=== PATIENT | female | born 1960 | race Caucasian/White ===

== ENCOUNTER → 2016-02-28 | Outpatient (CLI) | payer OTHER ==
[~2016-02-28] MED LIST: ALBU1AER9 INH; ASPEC325 PO; ATV1 PO; CRS20 PO; ISOS30TA3 PO; MAGIC1; METO25TA56 PO; MORP60TA6 PO; NTRGSL/4 UT; OXYC-106 PO; PRVSRUNK PO; SERT-234 PO
--- NOTE | 2016-02-29 14:16 | MAMMOGRAPHY REPORT ---
BILATERAL DIGITAL SCREENING MAMMOGRAM TOMOSYNTHESIS WITH CAD: 02/28/2016 CLINICAL HISTORY: Routine screening. Patient has no complaints. TECHNIQUE: Breast tomosynthesis in addition to standard 2D mammography was performed. Current study was also evaluated with a Computer Aided Detection (CAD) system. COMPARISON: Comparison is made to exams dated: 06/22/2014 mammogram, 09/01/2013 mammogram, and 014 mammogram - [facility]. BREAST COMPOSITION: The tissue of both breasts is heterogeneously dense, which may obscure small ma sses. FINDINGS: There are clusters of microcalcifications in each upper outer quadrant that appears simila r to prior exams and most likely represent benign fibrocystic change. No new suspicious mass, archi tectural distortion or cluster of microcalcifications is seen. IMPRESSION: ACR BI-RADS CATEGORY 1: NEGATIVE There is no mammographic evidence of malignancy. A 1 year screening mammogram is recommended. The p atient will receive written notification of the results. Approximately 10% of breast cancers are not detected with mammography. A negative mammographic repor t should not delay biopsy if a clinically suggestive mass is present. Preeti Willard M.D. ay/:02/28/2016 16:53:10 Certified Industrial Hygienist: Jessie MARKS(Elise)(Diana)([place]), [facility] letter sent: Normal 1/2 BI-RADS Code: ACR BI-RADS Category 1: Negative
== END | disposition home or self-care (01) ==
LOC: C.MAMM 16:24
PROVIDERS: ATTEND Family Medicine
DX: Z12.31 Encounter for screening mammogram for malignant neoplasm of breast (principal)

== ENCOUNTER 2017-04-11 19:53 | Emergency (ER) | payer OTHER ==
[~2017-04-11] VITALS: Ht 160 cm; Wt 76.4 kg
[2017-04-11 20:04] VITALS: TEMP 36.8; Ht 160 cm; Wt 76.4 kg
[2017-04-11] MEDS ORDERED: SODIUM CHLORIDE 0.9% 1000ML 1,000 ML IV STA (20:26)
[2017-04-11] MEDS ORDERED: FENTANYL CITRATE INJ 50 MCG/1 ML 2 ML VIAL IV STA (20:26)
[2017-04-11] MEDS ORDERED: DEXAMETHASONE **PF** INJ 10 MG/ML VIAL IV ONE (20:30)
[2017-04-11] MEDS ORDERED: OPTIRAY 320 IV PRN (20:45)
[2017-04-11 21:17] VITALS: O2SAT 93
[2017-04-11 21:17] LABS: BASO % 0.6 %; BASO ABS # 0.06 K/uL (0-0.2); EOS % 2.4 %; EOS ABS # 0.25 K/uL (0-0.5); HEMATOCRIT 41.8 % (37-47); HEMOGLOBIN 14.3 g/dL (12.0-16.0); IG# 0.02 K/uL (0.00-0.02); LYMPH % 23.3 %; LYMPH ABS # 2.46 K/uL (1.2-3.4); MEAN CELL VOLUME 95.7 fL (80-100); MEAN CORPUSCULAR HEMOGLOBIN 32.7 pg (25-34); MEAN CORPUSCULAR HGB CONC 34.2 g/dl (32-36); MEAN PLATELET VOLUME 9.1 fL (7.4-10.4); MONO % 7.2 %; MONO ABS # 0.76 K/uL (0.11-0.59); NEUT % 66.3 %; NEUT ABS # 7.02 K/uL (1.4-6.5); PLATELET COUNT 274 K/uL (130-400); RED CELL DISTRIBUTION WIDTH CV 14.3 % (11.5-14.5); RED CELL DISTRIBUTION WIDTH SD 50.2 fL (36.4-46.3); WHITE BLOOD COUNT 10.57 K/uL (4.8-10.8)
[2017-04-11 21:44] LABS: CALCIUM 9.1 mg/dl (8.5-10.1); CREATININE 0.82 mg/dl (0.60-1.20); POTASSIUM 3.4 mmol/L (3.5-5.1)
[2017-04-11] MEDS ORDERED: APRE1TAB3 PO (21:53)
[2017-04-11] MEDS ORDERED: TRAZ100T29 PO (21:53)
[2017-04-11] MEDS ORDERED: FLUT1INH INH (21:53)
[2017-04-11] MEDS ORDERED: CYAN5000 SL (21:53)
[2017-04-11] MEDS ORDERED: MORP1CAP PO (21:53)
[2017-04-11] MEDS ORDERED: LANS30CA12 PO (21:53)
[2017-04-11] MEDS ORDERED: CLBPO15 TOP (21:53)
[2017-04-11] MEDS ORDERED: NTRGSL/4 UT (21:53)
[2017-04-11] MEDS ORDERED: ROSU20TA PO (21:53)
[2017-04-11] MEDS ORDERED: CHOL400T (21:53)
[2017-04-11] MEDS ORDERED: METF-383 PO (21:53)
[2017-04-11] MEDS ORDERED: ASPI81TA28 PO (21:53)
[2017-04-11] MEDS ORDERED: TACR0.1O TOP (21:53)
[2017-04-11] MEDS ORDERED: OXYC-106 PO (21:53)
[2017-04-11] MEDS ORDERED: FLUO20CA35 PO (21:53)
[2017-04-11] MEDS ORDERED: BUSP-8 PO (21:53)
[2017-04-11] MEDS ORDERED: HYDR-3124 PO (21:53)
--- NOTE | 2017-04-11 22:02 | DIAGNOSTIC IMAGING REPORT ---
CHEST 2 VIEWS ROUTINE HISTORY: 56 years-old Female eval throat pain acute throat pain COMPARISON: None available TECHNIQUE: PA and lateral views of the chest FINDINGS: The cardiomediastinal and hilar silhouettes are within normal limits. There is no pneumothorax, pleural effusion, focal airspace consolidation or overt pulmonary edema. The bones of the chest appear grossly intact. Multiple subcentimeter nodular opacities are seen bilaterally suggesting small calcified granulomas. Stimulator leads are noted overlying the mid thoracic spine with partially imaged battery pack overlying the posterior soft tissues of the back. IMPRESSION: No acute process of the chest. The above report was generated using voice recognition software. It may contain grammatical, syntax or spelling errors. Electronically signed by: Lyle Nix M.D. 04/11/2017 10:01 PM Dictated Date/Time: 04/11/2017 9:57 PM
--- NOTE | 2017-04-11 22:30 | DIAGNOSTIC IMAGING REPORT ---
SOFT TISSUE NECK WITH HISTORY: 56 years-old Female eval abscess, mass acute dysphasia with neck soft tissue swelling. Clinical concern for possible abscess. COMPARISON: Chest radiographs of same day TECHNIQUE: Multiple axial CT images of the soft tissues of the neck were obtained following the intravenous administration of 93 mL Optiray 320 IV contrast. A dose lowering technique was used consistent with the principals of JAGRUTI. FINDINGS: Heterogeneous ill-defined soft tissue prominence within the distribution of the right palatine tonsil measures 1.9 x 1.8 x 2.4 cm nicely seen on image 126 series 3. This causes mild narrowing of the oral pharynx. The left palatine tonsil, adenoid and lingual tonsils appear unremarkable. Mild secretions are noted within the vallecula. Piriform sinuses are unremarkable. The bilateral vocal cords, epiglottis and aryepiglottic folds are unremarkable. No drainable fluid collections identified. No pathologic adenopathy about the neck. Bilateral parotid, submandibular and sublingual glands appear unremarkable. Mildly prominent left subpectoral lymph nodes are seen measuring up to 8 mm. Additionally, periesophageal lymph nodes are noted measuring up to 6 mm below the thoracic inlet. 3 mm low attenuating cystic lesion of the anterior right thyroid lobe. Mild emphysema of the imaged lung apices. 3 mm nodule of the left lung apex. Calcified granulomata of the lung apices. The bilateral orbits appear unremarkable. The imaged bony structures appear unremarkable. Mild mucosal thickening of the right maxillary and inferior frontal sinuses. Multilevel degenerative changes of the cervical spine. IMPRESSION: 1. Heterogeneous ill-defined soft tissue prominence within the region of the right palatine tonsil measures up to 2.4 cm causing mild mass effect upon the oral pharynx. Differential considerations would include infectious tonsillitis or tonsillar neoplasm. Correlation with direct visualization is recommended and ENT consultation should be considered. No drainable fluid collections identified to suggest abscess. 2. Emphysema. 3. Mild paranasal sinus disease. The above report was generated using voice recognition software. It may contain grammatical, syntax or spelling errors. Electronically signed by: Lyle Nix M.D. 04/11/2017 10:28 PM Dictated Date/Time: 04/11/2017 10:17 PM
--- NOTE | 2017-04-11 23:08 | EMERGENCY ROOM VISIT NOTE ---
ED Visit Note First contact with patient: 20:11 CHIEF COMPLAINT: Throat pain and swelling HISTORY OF PRESENTING ILLNESS: This is a 56-year-old female who presents the emergency department with complaint of sore throat and throat swelling for the past 2 months. She states initially her symptoms started the beginning of February, she had some associated fever/chills. She saw her PCP and was diagnosed with strep throat, placed on penicillin VK for 10 days. She states that her symptoms did not improve so she saw her PCP again, they performed a repeat test for strep which was negative, but placed her on additional antibiotics of cefuroxime for 10 days. They also felt the patient may have oral thrush, and place her on nystatin suspension. She has not seen her PCP since completing the second course of antibiotics. The patient states that her symptoms have persisted and she feels that the swelling in her throat has not gotten any better, she states she is worried that her throat is going to close off. She has been able to swallow solids and liquids, but states it is very painful. She denies any recent fevers or chills, headaches, chest pain or shortness of breath, dizziness or syncope, swelling of the face or neck, dental infections, nausea or vomiting, urinary symptoms, or rash. She takes Percocet and morphine regularly for chronic back pain, and states these have not been helping her throat pain. Patient's daughter does note that she had a lymph node removed from her armpit previously that tested positive for lymphoma, she states she is not currently on any treatment for this. REVIEW OF SYSTEMS: A complete 10 point review of systems was reviewed with the patient with pertinent positives and negatives as per history of present illness. All else were negative. PAST MEDICAL HISTORY: Anxiety/depression, chronic back pain on narcotics, hyperlipidemia, prediabetes. SOCIAL HISTORY: Lives at home with family. She is a current every day heavy smoker, denies alcohol and recreational drug use. ALLERGIES: No known allergies. PHYSICAL EXAM: CONSTITUTIONAL: Pleasant and cooperative. No acute distress. Mildly dehydrated , but otherwise well appearing and well nourished. HEENT: Normocephalic, atraumatic. Pupils equal, round and reactive to light, EOMI. TMs normal. Pharynx erythematous and raw appearing with 4+ enlarged tonsils, no exudate, no uvular deviation, no trismus. Tacky mucous membranes. Voice is not muffled. NECK: Supple, full active range of motion without discomfort. Bilateral cervical adenopathy, nontender to palpation. RESPIRATORY: Clear to auscultation bilaterally with no wheezing, crackles, rhonchi or stridor. Equal expansion bilaterally. CARDIOVASCULAR: Regular rate and rhythm with no murmurs, rubs or gallops. Normal peripheral perfusion. No edema. GASTROINTESTINAL: Soft, nontender, nondistended. No palpable masses or HSM. Bowel sounds present in all quadrants. MUSCULOSKELETAL: Full range of motion of all joints without discomfort. INTEGUMENTARY: No rash or other significant dermatologic conditions noted. NEUROLOGIC: Alert and oriented X 4 with normal affect. Cranial nerves II-XII grossly intact. No focal neurologic deficits noted. Normal strength and sensation all 4 extremities. Normal speech. Normal gait observed. ED COURSE AND MEDICAL DECISION MAKING: CC: Patient presenting with complaint of throat pain DIFFERENTIAL DIAGNOSIS: Includes, but not limited to viral pharyngitis, strep pharyngitis, mononucleosis, peritonsillar or retropharyngeal abscess, tonsillitis, malignant mass, lymphadenopathy, among others. INTERPRETATION OF LABS: No leukocytosis, no anemia, no significant electrolyte abnormalities, normal renal function. Monospot negative. Rapid strep negative. IMAGING: CHEST 2 VIEWS ROUTINE HISTORY: 56 years-old Female eval throat pain acute throat pain COMPARISON: None available TECHNIQUE: PA and lateral views of the chest FINDINGS: The cardiomediastinal and hilar silhouettes are within normal limits. There is no pneumothorax, pleural effusion, focal airspace consolidation or overt pulmonary edema. The bones of the chest appear grossly intact. Multiple subcentimeter nodular opacities are seen bilaterally suggesting small calcified granulomas. Stimulator leads are noted overlying the mid thoracic spine with partially imaged battery pack overlying the posterior soft tissues of the back. IMPRESSION: No acute process of the chest. ------ SOFT TISSUE NECK WITH HISTORY: 56 years-old Female eval abscess, mass acute dysphasia with neck soft tissue swelling. Clinical concern for possible abscess. COMPARISON: Chest radiographs of same day TECHNIQUE: Multiple axial CT images of the soft tissues of the neck were obtained following the intravenous administration of 93 mL Optiray 320 IV contrast. A dose lowering technique was used consistent with the principals of ALARA. FINDINGS: Heterogeneous ill-defined soft tissue prominence within the distribution of the right palatine tonsil measures 1.9 x 1.8 x 2.4 cm nicely seen on image 126 series 3. This causes mild narrowing of the oral pharynx. The left palatine tonsil, adenoid and lingual tonsils appear unremarkable. Mild secretions are noted within the vallecula. Piriform sinuses are unremarkable. The bilateral vocal cords, epiglottis and aryepiglottic folds are unremarkable. No drainable fluid collections identified. No pathologic adenopathy about the neck. Bilateral parotid, submandibular and sublingual glands appear unremarkable. Mildly prominent left subpectoral lymph nodes are seen measuring up to 8 mm. Additionally, periesophageal lymph nodes are noted measuring up to 6 mm below the thoracic inlet. 3 mm low attenuating cystic lesion of the anterior right thyroid lobe. Mild emphysema of the imaged lung apices. 3 mm nodule of the left lung apex. Calcified granulomata of the lung apices. The bilateral orbits appear unremarkable. The imaged bony structures appear unremarkable. Mild mucosal thickening of the right maxillary and inferior frontal sinuses. Multilevel degenerative changes of the cervical spine. IMPRESSION: 1. Heterogeneous ill-defined soft tissue prominence within the region of the right palatine tonsil measures up to 2.4 cm causing mild mass effect upon the oral pharynx. Differential considerations would include infectious tonsillitis or tonsillar neoplasm. Correlation with direct visualization is recommended and ENT consultation should be considered. No drainable fluid collections identified to suggest abscess. 2. Emphysema. 3. Mild paranasal sinus disease. EKG: Shows normal sinus rhythm with a rate of 97 bpm, no ectopy, no acute ischemic changes, no significant changes compared with previous EKG from 2010 by my interpretation. MEDICATION RECONCILIATION: I attest that I have personally reviewed the patient 's current medication list. INITIAL VITAL SIGNS REVIEW: I reviewed the patient's initial vital signs and interpret them as follows: T: Afebrile; BP: Normotensive; HR: Tachycardic; RR : Within normal limits; Pulse Ox: Within normal limits on room air. Blood pressure screening: The patient was found to have normal blood pressure on screening and does not require follow-up for repeat blood pressure check. SUMMARY: Patient was evaluated at bedside, history and physical exam performed. Patient is alert and oriented, no acute distress, resting calmly in the stretcher. Patient is able to tolerate her oral secretions. She is able to speak without difficulty, no muffled voice. No trismus or uvular deviation. The pharynx is notably erythematous with enlarged tonsils. Orders were placed at bedside for labs, IV fluids for hydration, IV Decadron for tonsillar edema, CT soft tissue neck with IV contrast to evaluate for deep space infection or mass. Patient discussed with Dr. Jerome, who agrees with my assessment and plan. Labs and imaging reviewed as above, findings appear consistent with tonsillitis , though malignancy cannot be fully ruled out. Radiologist is recommending ENT follow-up. Patient has been stable, no evidence of a systemic infection, and her symptoms have been relatively unchanged for the past 2 months with no acute worsening. Able to swallow, no respiratory issues, I am not concerned for acute airway compromise at this time. The patient was given Rx for clindamycin and prednisone taper, first dose of Clinda given in the ED. Patient reassessed multiple times throughout ED stay, she remains well-appearing , patent airway and tolerating oral fluids. Her pain is improving. Patient was updated on all results and plan for discharge, she was encouraged to follow closely with her primary care provider. sales planning manager was involved to help facilitate establishing a close follow-up with ENT, the patient will be called to set up an appointment. Patient was also given strict return precautions should her symptoms worsen, she verbalized understanding. Patient was discharged home in stable condition and ambulatory. Current/Historical Medications Scheduled Apremilast (Otezla), 30 MG PO BID Aspirin (Aspirin Ec), 81 MG PO DAILY Buspirone Hcl (Buspirone Hcl), 10 MG PO BID Cholecalciferol (Vitamin D), 400 UNITS DAILYBB Clindamycin Hcl (Cleocin), 300 MG PO QID Clobetasol Propionate (Clobetasol Propionate), 1 APPLN TOP BID ud Cyanocobalamin (Vitamin B-12), 5,000 MCG SL DAILY Fluoxetine (Prozac), 20 MG PO DAILY Fluticasone Furoate-Vilanterol (Breo Ellipta), 1 PUFF INH DAILY Lansoprazole (Prevacid), 30 MG PO DAILY Metformin Hcl (Glucophage), 850 MG PO DAILY Morphine Sulfate (Flory), 60 MG PO BID Nitroglycerin (Nitrostat), 0.4 MG UT PRN Prednisone (Prednisone), 0 PO DAILY Rosuvastatin Calcium (Crestor), 20 MG PO HS Tacrolimus (Topical) (Protopic), 1 APPLN TOP UD Trazodone Hcl (Trazodone), 200 MG PO DAILY Scheduled PRN Hydroxyzine Hcl (Atarax), 25 MG PO QID PRN for Itching Oxycodone/Acetaminophen 10MG/325MG (Percocet 10MG/325MG), 1 TAB PO Q4 PRN for Pain Allergies Coded Allergies: No Known Allergies (Verified , NONE, 06/03/10) Vital Signs Date Time Temp Pulse Resp B/P (MAP) Pulse Ox O2 Delivery O2 Flow Rate FiO2 04/12/17 00:15 76 20 146/81 99 04/11/17 23:34 82 20 137/87 94 Room Air 04/11/17 22:04 96 18 137/85 92 Room Air 04/11/17 21:17 93 Room Air 04/11/17 20:45 93 Room Air 04/11/17 20:04 36.8 127 18 115/75 94 Room Air Laboratory Results 04/11/17 21:00 Red Blood Count 4.37, Mean Corpuscular Volume 95.7, Mean Corpuscular Hemoglobin 32.7, Mean Corpuscular Hemoglobin Concent 34.2, Mean Platelet Volume 9.1, Neutrophils (%) (Auto) 66.3, Lymphocytes (%) (Auto) 23.3, Monocytes (%) (Auto) 7.2, Eosinophils (%) (Auto) 2.4, Basophils (%) (Auto) 0.6, Neutrophils # (Auto) 7.02, Lymphocytes # (Auto) 2.46, Monocytes # (Auto) 0.76, Eosinophils # (Auto) 0.25, Basophils # (Auto) 0.06 04/11/17 21:00 Test 04/11/17 21:00 White Blood Count 10.57 K/uL (4.8-10.8) Red Blood Count 4.37 M/uL (4.2-5.4) Hemoglobin 14.3 g/dL (12.0-16.0) Hematocrit 41.8 % (37-47) Mean Corpuscular Volume 95.7 fL (80-100) Mean Corpuscular Hemoglobin 32.7 pg (25-34) Mean Corpuscular Hemoglobin Concent 34.2 g/dl (32-36) Platelet Count 274 K/uL (130-400) Mean Platelet Volume 9.1 fL (7.4-10.4) Neutrophils (%) (Auto) 66.3 % Lymphocytes (%) (Auto) 23.3 % Monocytes (%) (Auto) 7.2 % Eosinophils (%) (Auto) 2.4 % Basophils (%) (Auto) 0.6 % Neutrophils # (Auto) 7.02 K/uL (1.4-6.5) Lymphocytes # (Auto) 2.46 K/uL (1.2-3.4) Monocytes # (Auto) 0.76 K/uL (0.11-0.59) Eosinophils # (Auto) 0.25 K/uL (0-0.5) Basophils # (Auto) 0.06 K/uL (0-0.2) RDW Standard Deviation 50.2 fL (36.4-46.3) RDW Coefficient of Variation 14.3 % (11.5-14.5) Immature Granulocyte % (Auto) 0.2 % Immature Granulocyte # (Auto) 0.02 K/uL (0.00-0.02) Anion Gap 9.0 mmol/L (3-11) Est Creatinine Clear Calc Drug Dose 75.9 ml/min Estimated GFR () 93.4 Estimated GFR (Non- 80.6 BUN/Creatinine Ratio 10.2 (10-20) Calcium Level 9.1 mg/dl (8.5-10.1) Monoscreen NEG (NEG) Medications Administered Medications (Trade) Dose Ordered Sig/Jennifer Route Start Time Stop Time Status Last Admin Dose Admin Sodium Chloride 1,000 ml @ 999 mls/hr Q1H1M STAT IV 04/11/17 20:26 04/11/17 21:26 DC 04/11/17 21:31 999 MLS/HR Fentanyl Citrate (Fentanyl Inj) 100 mcg NOW STAT IV 04/11/17 20:26 04/11/17 20:32 DC 04/11/17 21:32 100 MCG Dexamethasone Sodium Phosphate (Dexamethasone Inj Pf) 10 mg NOW ONCE IV 04/11/17 20:30 04/11/17 20:32 DC 04/11/17 21:31 10 MG Clindamycin HCl (Cleocin Cap) 300 mg ONE ONCE PO 04/11/17 23:45 04/11/17 23:46 DC 04/12/17 00:05 300 MG Clindamycin HCl (Cleocin 150MG Home Pack) 2 homepack UD ONCE PO 04/11/17 23:45 04/11/17 23:46 DC 04/12/17 00:06 2 HOMEPACK Departure Information Impression Primary Impression: Tonsillitis Dispostion Home / Self-Care Condition GOOD Prescriptions Prednisone (Prednisone) 20 Mg Tab 0 PO DAILY, #18 TAB 3 DAILY FOR 3 DAYS, THEN 2 DAILY FOR 3 DAYS, THEN 1 DAILY FOR 3 DAYS. Prov: Morenita Adler CRNP 04/11/17 Clindamycin Hcl (CLEOCIN) 300 Mg Cap 300 MG PO QID for 9 Days, #36 CAP Prov: Morenita Adler CRNP 04/11/17 Referrals Franchesca Girard PA-C (PCP) Patient Instructions ED Tonsillitis, [facility] Additional Instructions You were seen in the emergency department for your sore throat. The results of your rapid strep screen were found to be negative. You will be contacted in 48- 72 hours for any abnormal results of your strep culture. Your CT scan findings appear to be consistent with tonsillitis. You were prescribed clindamycin to be taken 4 times a day for 10 days. This is an antibiotic. All antibiotics have the potential to cause diarrhea. Stop this medication and contact a medical provider if you were to develop any significant adverse side effects including: wheezing, shortness of breath, passing out, vomiting, or a diffuse rash. Always take antibiotics as directed and COMPLETE the ENTIRE course regardless of the improvement of your symptoms. Take a probiotic or eat yogurt every day to help prevent diarrhea and stomach upset side effects of antibiotics. You have been prescribed Prednisone. This is a steroid which will help decrease your inflammation of your throat. Take this medicine as prescribed. Take the ENTIRE 9 day course. It is best to take steroids early in the morning, since evening dosing can affect your sleeping patterns. For pain and fever control, you can use the following dzed-sga-cmomvct medicines (if >12 yo): - Regular strength (325mg/tab) Tylenol (acetaminophen) 2 tabs every 4-6 hours as needed. Do not exceed 10 tablets in a 24 hour period. Avoid taking more than 3000 mg of Tylenol per day. This includes any other sources of acetaminophen you may take on a regular basis. - Regular strength (200 mg/tab) Advil (ibuprofen) 3 tabs every 6-8 hours as needed. Do not exceed a dose of 2400 mg per day. - For best results, alternate dosing of Tylenol and Advil. In addition to your prescribed medications, you can also use the following home remedies: - Warm salt-water gargles 3 times per day can soothe your throat and help to fight infection. - Warm tea with honey can soothe your throat. - Lozenges and Chloraseptic throat sprays You will need to follow-up with an Ears Nose and Throat (ENT) surgeon. You will be called to set up an appointment. In the meantime, you should follow-up with your primary care provider in the next few days for reassessment of your throat. Please return to the emergency department immediately if you develop the following symptoms of: inability to swallow solids, liquids, or drool, increased tightness or swelling in your throat, excessive wheezing or inability to catch your breath, fevers/chills, severe worsening pain, or any other concerns. Work Instructions Return To Work: 2 days
[2017-04-11] MEDS ORDERED: PRED20TA PO (23:35)
[2017-04-11] MEDS ORDERED: CLIN300C2 PO (23:35)
[2017-04-11] MEDS ORDERED: CLINDAMYCIN HCL 150 MG CAP PO ONE (23:45)
[2017-04-11] MEDS ORDERED: CLINDAMYCIN 150MG HOME PACK PO ONE (23:45)
[2017-04-12 00:15] VITALS: BP 146/81; PULSE 76; O2SAT 99
== END 2017-04-12 00:18 | disposition home or self-care (01) ==
LOC: C.EDB 19:56 → C.EDC 04-12 00:18
DX: J03.90 Acute tonsillitis, unspecified (principal); R00.0 Tachycardia, unspecified; C85.90 Non-Hodgkin lymphoma, unspecified, unspecified site; M54.9 Dorsalgia, unspecified; G89.29 Other chronic pain; R73.03 Prediabetes; F41.8 Other specified anxiety disorders; F17.200 Nicotine dependence, unspecified, uncomplicated; Z79.82 Long term (current) use of aspirin; Z79.84 Long term (current) use of oral hypoglycemic drugs

== ENCOUNTER 2020-05-14 10:18 | Inpatient (IN) ==
[2020-05-14] MEDS ORDERED: ALBUT/IPRATROP 3MG/0.5MG NEB 3 ML VIAL NEB ONE (10:36)
--- NOTE | 2020-05-14 10:55 | Emergency Department Note ---
Impression & Plan Pneumonia due to COVID-19 virus, COPD (chronic obstructive pulmonary disease) ED Provider Note NAME: LUIZA BRITT AGE: 59 SEX: F : 1960 ARRIVES VIA: Ambulance INFORMANT: Patient, ED PROVIDER(S): Darryl Rausch MD CHIEF COMPLAINT: hypoxia HPI: This is a 59-year-old female who is trach collar in place who presents to the emergency department complaining of hypoxia. The patient is currently being treated with both chemo and radiation for throat cancer. found her to be extremely short of breath. EMS was summoned to the scene and placed the patient on oxygen. They were also able to suction out the patient's trach I removed a large mucous plug. The patient is not normally on oxygen at home however and is still requiring oxygen here in the emergency department. She reports any type of exertion makes her shortness of breath much worse and rest makes it better. ROS: See above HPI for pertinent positives & negatives. A total of 10 systems reviewed and were otherwise negative. PAST MEDICAL HISTORY: See Below PAST SURGICAL HISTORY: See Below FAMILY HISTORY: See Below SOCIAL HISTORY: See Below HOME MEDICATIONS: See Below ALLERGIES: See Below VITALS: See Below PHYSICAL EXAMINATION: VITAL SIGNS - Vital signs and nursing notes were reviewed. GENERAL - 59-year-old female appearing stated age who is in no acute distress. Communicates well with provider and answers questions appropriately. SKIN - Without rashes. HEAD - NC/AT. EYES - PERRL with EOMI bilaterally. Sclera anicteric. Palpebral conjunctiva pink and moist with no injection noted. EARS - No deformities of external structures noted on gross examination bilaterally. NOSE - Midline and without cyanosis. No epistaxis or purulent drainage noted. Septum midline without deviation or septal hematoma noted. MOUTH/OROPHARYNX - Without perioral cyanosis. Buccal mucosa pink and moist and without leukoplakia. Tongue midline with equal elevation of palate bilaterally. No tonsillar hypertrophy, erythema, or exudates noted. NECK - Neck with FROM. Supple to palpation. lymphadenopathy noted. No nuchal rigidity. LUNGS - Chest wall symmetric without accessory muscle use, intercostals re tractions, or central cyanosis. Normal vesicular breath sounds CTA B/L. No wheezes, rales, or rhonchi appreciated. CARDIAC - RRR with S1/S2. No murmur, rubs, or gallops appreciated. ABDOMEN - Abdominal contour without pulsations or visible masses. BS normoactive all four quadrants. No tenderness, palpable masses, hepatosplenomegaly, or ascites noted. EXTREMITIES - No clubbing or peripheral cyanosis. No pretibial edema present. +3/5 radial, posterior tibial, and dorsalis pedis pulses palpated throughout. +5/5 strength noted in UE/LE bilaterally. NEUROLOGIC - Cranial nerves II through XII grossly intact. Sensory intact to light touch throughout. Patellar reflexes +2/4. PSYCH - A&Ox3 and cooperates fully with examiner. Pt is very pleasant and interacts well with examiner. MEDICAL DECISION MAKING: Patient was seen and evaluated as above in room B1. Review was performed of nursing notes and vital signs. I did review pertinent previous visits and patient history. After obtaining a thorough history and physical examination the above work up was performed. This is a 59-year-old female who presents emergency department complaining of shortness of breath. Respiratory therapy provided extensive treatment for this patient along with extended suctioning and breathing treatments to get her improved. The patient herself is positive for Covid. She was started on Solu- Medrol as well as magnesium here in the emergency department. She does not have an elevation in her white blood cell count. I did discuss the case with the hospitalist service who did agree to meet the patient. Patient is in agreement with the treatment plan. While in the department, I personally reevaluated the patient several times and each time the patient was found to be resting comfortably. The patient was educated upon management, educated upon todays findings/results, educated upon importance of follow up from today's visit, educated upon symptoms in which to return, had questions answered prior to discharge, verbalized understanding, and was discharged home in good condition. An order was placed for continuous cardiac monitoring. The monitor shows a rate of 84 with Normal Sinus rhythm. The patient was evaluated during a period of high volume and high acuity during the global COVID-19 pandemic, and that diagnosis was suspected/considered upon their initial presentation. Their evaluation, treatment and testing was consistent with current guidelines for patients who present with complaints or symptoms that may be related to COVID-19. Patient was seen while provider was wearing PPE. Triage Nursing notes reviewed. Prior medical records reviewed Vital Signs: reviewed and remarkable for no significant abnormalities Differential diagnosis: Reactive airway disease, pneumonia, pneumothorax, COPD, CHF, infections, cardiac ischemia, pulmonary embolism, musculoskeletal, gastrointestinal, as well as other pathologies. ER treatment provided: See below Diagnostics interpreted by me: ECG: Normal sinus rhythm no ST elevation or depression prolonged QT QTC is 47 ventricular rate is 100; EKG is compared to July 13, 2017 no acute changes noted Laboratory studies: As stated above and show below. Imaging studies: See below Consultation(s): Internal Medicine Critical Care: I have personally spent greater than 90 minutes of critical care time in the di rect management of this patient. This includes bedside care, interpretation of diagnostic studies, and testing, discussion with consultants, patient, and family members, and other required patient management activities. This 90 minutes is in excess of all separately billable procedures. Past Med/Surg History Medical History (Updated 05/15/20 @ 15:56 by Darryl Rausch MD) Anxiety Chronic cough throat burn from radiation COPD (chronic obstructive pulmonary disease) Depression Hypothyroidism Oropharyngeal carcinoma radiation and chemo Surgical History (Updated 08/16/19 @ 11:42 by Ingrid Luis PA-C) History of total knee replacement left knee x 2 Hx of esophagogastroduodenoscopy S/P insertion of spinal cord stimulator was placed in [facility], has a remote but cant find it. She will keep looking for it and what type her device is. S/P percutaneous endoscopic gastrostomy (PEG) tube placement Social History Smoking Status: Unknown if ever smoked Cigarettes Per Day: 1ppd; Second Hand Exposure: No; Hx Alcohol Use: Yes Hx Substance Use: No Preferred Language: Lao Communication Ability: Unable Machine Cleaner Required: No Beliefs That Will Affect Care: None Current Living Situation: Spouse and Family Feels Safe at Home: Yes Safety Concerns: Feels Safe At This Time Assistive Devices: Oxygen - Continuous Allergies Allergies Allergy/AdvReac Type Severity Reaction Status Date / Time No Known Allergies Allergy Mild NONE Verified 05/14/20 15:02 Home Meds Home Medications Medication Instructions Recorded Confirmed albuterol sulfate 2 puff INHALATION QID 05/14/20 05/14/20 albuterol sulfate 2.5 mg INHALATION Q4H PRN 05/14/20 05/14/20 azithromycin 250 mg FEEDING TUBE UD 05/14/20 05/14/20 buprenorphine 1 patch TOPICAL WK 05/14/20 05/14/20 fluoxetine 20 mg FEEDING TUBE QPM 05/14/20 05/14/20 fluoxetine 40 mg FEEDING TUBE QAM 05/14/20 05/14/20 fluticasone furoate-vilanterol 1 ea INHALATION DAILY 05/14/20 05/14/20 [Breo Ellipta] hydromorphone 4 mg PO Q6H PRN 05/14/20 05/14/20 lansoprazole 15 mg FEEDING TUBE BID 05/14/20 05/14/20 levothyroxine 75 mcg PO DAILY 05/14/20 05/14/20 lorazepam 1 mg FEEDING TUBE Q6H PRN 05/14/20 05/14/20 olanzapine 5 mg FEEDING TUBE HS 05/14/20 05/14/20 ondansetron 8 mg PO Q8H PRN 05/14/20 05/14/20 oxycodone 15 mg FEEDING TUBE Q3H PRN 05/14/20 05/14/20 pregabalin 25 mg FEEDING TUBE TID 05/14/20 05/14/20 promethazine 6.25 mg FEEDING TUBE QID PRN 05/14/20 05/14/20 trazodone 200 mg FEEDING TUBE QPM 05/14/20 05/14/20 Results & Data (ED) Home Medications Current Medication List: was personally reviewed by me Laboratory Data Attestation: I reviewed the patient's lab results. Result diagrams: 05/15/20 06:06 05/15/20 06:06 Lab Results 05/14/20 05/14/20 05/14/20 Range/Units 06:17 10:47 10:47 WBC (4.8-10.8) K/uL RBC (4.2-5.4) M/uL Hgb (12.0-16.0) g/dL Hct (37-47) % MCV (80-100) fL MCH (25-34) pg MCHC (32-36) g/dL RDW Std Deviation (36.4-46.3) fL RDW Coeff of Singh (11.5-14.5) % Plt Count (130-400) K/uL MPV (7.4-10.4) fL Immature Gran % (Auto) % Neut % (Auto) % Lymph % (Auto) % [place] % (Auto) % Eos % (Auto) % Baso % (Auto) % Neut # (Auto) (1.4-6.5) K/uL Lymph # (Auto) (1.2-3.4) K/uL [place] # (Auto) (0.11-0.59) K/uL Eos # (Auto) (0-0.5) K/uL Baso # (Auto) (0-0.2) K/uL Immature Gran # (Auto) (0.00-0.02) K/uL ESR > 90 H (0-21) mm/hr PT (9.0-12.0) Seconds INR (0.9-1.1) APTT (21.0-31.0) Seconds PTT Ratio Sodium 131 L (136-145) mmol/L Potassium 3.3 L (3.5-5.1) mmol/L Chloride 93 L (98-107) mmol/L Carbon Dioxide 33 H (21-32) mmol/L Anion Gap 5.0 (3-11) BUN 11 (7-18) mg/dl Creatinine 0.52 L (0.6-1.2) mg/dl Est Cr Clr Drug Dosing Not Reportable Est GFR ( Amer) 122.1 Est GFR (Non-Af Amer) 105.3 BUN/Creatinine Ratio 21.7 H (10-20) Glucose 85 (70-99) mg/dl Lactate (0.4-2.0) mmol/L Calcium 8.6 (8.5-10.1) mg/dl Magnesium 1.8 (1.8-2.4) mg/dl Ferritin 380.5 (8-388) ng/ml Total Bilirubin 0.2 (0.2-1) mg/dl AST 23 (15-37) U/L ALT 12 (12-78) U/L Alkaline Phosphatase 97 (45-117) U/L Lactate Dehydrogenase (84-246) U/L Troponin I < 0.015 (0-0.045) ng/ml C-Reactive Protein 13.90 H (0-0.29) mg/dl Total Protein 8.8 H (6.4-8.2) gm/dl Albumin 2.2 L (3.4-5.0) gm/dl Globulin 6.6 H (2.5-4.0) gm/dl Albumin/Globulin Ratio 0.3 L (0.9-2) Procalcitonin (0-0.5) ng/ml Urine Color Yellow Urine Appearance Clear (Clear) Urine pH 6.0 (4.5-7.5) Ur Specific [place] 1.020 (1.000-1.030) Urine Protein Trace H (Negative) Urine Glucose (UA) Negative (Negative) Urine Ketones Negative (Negative) Urine Blood 3+ H (Negative) Urine Nitrite Negative (Negative) Urine Bilirubin Negative (Negative) Urine Urobilinogen Negative (Negative) Ur Leukocyte Esterase Negative (Negative) Urine WBC (Auto) 1-5 (0-5) /hpf Urine RBC (Auto) >30 H (0-4) /hpf U Hyaline Cast (Auto) 1-5 (0-5) /lpf U Epithel Cells (Auto) 20-30 H (0-5) /lpf Urine Bacteria (Auto) Negative (Negative) COVID-19 Eval Order SARS-CoV-2 (PCR) (Negative) Influenza Type A (PCR) (Neg) Influenza Type B (PCR) (Neg) RSV (RT-PCR) (Neg) Blood Type Antibody Screen 05/14/20 05/14/20 05/14/20 Range/Units 10:47 10:47 10:47 WBC 7.73 (4.8-10.8) K/uL RBC 2.78 L (4.2-5.4) M/uL Hgb 9.1 L (12.0-16.0) g/dL Hct 27.4 L (37-47) % MCV 98.6 (80-100) fL MCH 32.7 (25-34) pg MCHC 33.2 (32-36) g/dL RDW Std Deviation 53.2 H (36.4-46.3) fL RDW Coeff of Singh 14.7 H (11.5-14.5) % Plt Count 462 H (130-400) K/uL MPV 9.0 (7.4-10.4) fL Immature Gran % (Auto) 0.3 % Neut % (Auto) 91.8 % Lymph % (Auto) 1.7 % [place] % (Auto) 5.7 % Eos % (Auto) 0.4 % Baso % (Auto) 0.1 % Neut # (Auto) 7.10 H (1.4-6.5) K/uL Lymph # (Auto) 0.13 L (1.2-3.4) K/uL [place] # (Auto) 0.44 (0.11-0.59) K/uL Eos # (Auto) 0.03 (0-0.5) K/uL Baso # (Auto) 0.01 (0-0.2) K/uL Immature Gran # (Auto) 0.02 (0.00-0.02) K/uL ESR (0-21) mm/hr PT (9.0-12.0) Seconds INR (0.9-1.1) APTT (21.0-31.0) Seconds PTT Ratio Sodium (136-145) mmol/L Potassium (3.5-5.1) mmol/L Chloride (98-107) mmol/L Carbon Dioxide (21-32) mmol/L Anion Gap (3-11) BUN (7-18) mg/dl Creatinine (0.6-1.2) mg/dl Est Cr Clr Drug Dosing Est GFR ( Amer) Est GFR (Non-Af Amer) BUN/Creatinine Ratio (10-20) Glucose (70-99) mg/dl Lactate (0.4-2.0) mmol/L Calcium (8.5-10.1) mg/dl Magnesium (1.8-2.4) mg/dl Ferritin (8-388) ng/ml Total Bilirubin (0.2-1) mg/dl AST (15-37) U/L ALT (12-78) U/L Alkaline Phosphatase (45-117) U/L Lactate Dehydrogenase 148 (84-246) U/L Troponin I (0-0.045) ng/ml C-Reactive Protein (0-0.29) mg/dl Total Protein (6.4-8.2) gm/dl Albumin (3.4-5.0) gm/dl Globulin (2.5-4.0) gm/dl Albumin/Globulin Ratio (0.9-2) Procalcitonin 1.06 H (0-0.5) ng/ml Urine Color Urine Appearance (Clear) Urine pH (4.5-7.5) Ur Specific [place] (1.000-1.030) Urine Protein (Negative) Urine Glucose (UA) (Negative) Urine Ketones (Negative) Urine Blood (Negative) Urine Nitrite (Negative) Urine Bilirubin (Negative) Urine Urobilinogen (Negative) Ur Leukocyte Esterase (Negative) Urine WBC (Auto) (0-5) /hpf Urine RBC (Auto) (0-4) /hpf U Hyaline Cast (Auto) (0-5) /lpf U Epithel Cells (Auto) (0-5) /lpf Urine Bacteria (Auto) (Negative) COVID-19 Eval Order SARS-CoV-2 (PCR) (Negative) Influenza Type A (PCR) (Neg) Influenza Type B (PCR) (Neg) RSV (RT-PCR) (Neg) Blood Type Antibody Screen 05/14/20 05/14/20 05/14/20 Range/Units 10:47 11:01 11:01 WBC (4.8-10.8) K/uL RBC (4.2-5.4) M/uL Hgb (12.0-16.0) g/dL Hct (37-47) % MCV (80-100) fL MCH (25-34) pg MCHC (32-36) g/dL RDW Std Deviation (36.4-46.3) fL RDW Coeff of Singh (11.5-14.5) % Plt Count (130-400) K/uL MPV (7.4-10.4) fL Immature Gran % (Auto) % Neut % (Auto) % Lymph % (Auto) % [place] % (Auto) % Eos % (Auto) % Baso % (Auto) % Neut # (Auto) (1.4-6.5) K/uL Lymph # (Auto) (1.2-3.4) K/uL [place] # (Auto) (0.11-0.59) K/uL Eos # (Auto) (0-0.5) K/uL Baso # (Auto) (0-0.2) K/uL Immature Gran # (Auto) (0.00-0.02) K/uL ESR (0-21) mm/hr PT 11.7 (9.0-12.0) Seconds INR 1.2 H (0.9-1.1) APTT 34.3 H (21.0-31.0) Seconds PTT Ratio 1.3 Sodium (136-145) mmol/L Potassium (3.5-5.1) mmol/L Chloride (98-107) mmol/L Carbon Dioxide (21-32) mmol/L Anion Gap (3-11) BUN (7-18) mg/dl Creatinine (0.6-1.2) mg/dl Est Cr Clr Drug Dosing Est GFR ( Amer) Est GFR (Non-Af Amer) BUN/Creatinine Ratio (10-20) Glucose (70-99) mg/dl Lactate 0.5 (0.4-2.0) mmol/L Calcium (8.5-10.1) mg/dl Magnesium (1.8-2.4) mg/dl Ferritin (8-388) ng/ml Total Bilirubin (0.2-1) mg/dl AST (15-37) U/L ALT (12-78) U/L Alkaline Phosphatase (45-117) U/L Lactate Dehydrogenase (84-246) U/L Troponin I (0-0.045) ng/ml C-Reactive Protein (0-0.29) mg/dl Total Protein (6.4-8.2) gm/dl Albumin (3.4-5.0) gm/dl Globulin (2.5-4.0) gm/dl Albumin/Globulin Ratio (0.9-2) Procalcitonin (0-0.5) ng/ml Urine Color Urine Appearance (Clear) Urine pH (4.5-7.5) Ur Specific [place] (1.000-1.030) Urine Protein (Negative) Urine Glucose (UA) (Negative) Urine Ketones (Negative) Urine Blood (Negative) Urine Nitrite (Negative) Urine Bilirubin (Negative) Urine Urobilinogen (Negative) Ur Leukocyte Esterase (Negative) Urine WBC (Auto) (0-5) /hpf Urine RBC (Auto) (0-4) /hpf U Hyaline Cast (Auto) (0-5) /lpf U Epithel Cells (Auto) (0-5) /lpf Urine Bacteria (Auto) (Negative) COVID-19 Eval Order SARS-CoV-2 (PCR) (Negative) Influenza Type A (PCR) (Neg) Influenza Type B (PCR) (Neg) RSV (RT-PCR) (Neg) Blood Type A Positive Antibody Screen NEGATIVE 05/14/20 05/14/20 Range/Units 11:07 11:07 WBC (4.8-10.8) K/uL RBC (4.2-5.4) M/uL Hgb (12.0-16.0) g/dL Hct (37-47) % MCV (80-100) fL MCH (25-34) pg MCHC (32-36) g/dL RDW Std Deviation (36.4-46.3) fL RDW Coeff of Singh (11.5-14.5) % Plt Count (130-400) K/uL MPV (7.4-10.4) fL Immature Gran % (Auto) % Neut % (Auto) % Lymph % (Auto) % [place] % (Auto) % Eos % (Auto) % Baso % (Auto) % Neut # (Auto) (1.4-6.5) K/uL Lymph # (Auto) (1.2-3.4) K/uL [place] # (Auto) (0.11-0.59) K/uL Eos # (Auto) (0-0.5) K/uL Baso # (Auto) (0-0.2) K/uL Immature Gran # (Auto) (0.00-0.02) K/uL ESR (0-21) mm/hr PT (9.0-12.0) Seconds INR (0.9-1.1) APTT (21.0-31.0) Seconds PTT Ratio Sodium (136-145) mmol/L Potassium (3.5-5.1) mmol/L Chloride (98-107) mmol/L Carbon Dioxide (21-32) mmol/L Anion Gap (3-11) BUN (7-18) mg/dl Creatinine (0.6-1.2) mg/dl Est Cr Clr Drug Dosing Est GFR ( Amer) Est GFR (Non-Af Amer) BUN/Creatinine Ratio (10-20) Glucose (70-99) mg/dl Lactate (0.4-2.0) mmol/L Calcium (8.5-10.1) mg/dl Magnesium (1.8-2.4) mg/dl Ferritin (8-388) ng/ml Total Bilirubin (0.2-1) mg/dl AST (15-37) U/L ALT (12-78) U/L Alkaline Phosphatase (45-117) U/L Lactate Dehydrogenase (84-246) U/L Troponin I (0-0.045) ng/ml C-Reactive Protein (0-0.29) mg/dl Total Protein (6.4-8.2) gm/dl Albumin (3.4-5.0) gm/dl Globulin (2.5-4.0) gm/dl Albumin/Globulin Ratio (0.9-2) Procalcitonin (0-0.5) ng/ml Urine Color Urine Appearance (Clear) Urine pH (4.5-7.5) Ur Specific [place] (1.000-1.030) Urine Protein (Negative) Urine Glucose (UA) (Negative) Urine Ketones (Negative) Urine Blood (Negative) Urine Nitrite (Negative) Urine Bilirubin (Negative) Urine Urobilinogen (Negative) Ur Leukocyte Esterase (Negative) Urine WBC (Auto) (0-5) /hpf Urine RBC (Auto) (0-4) /hpf U Hyaline Cast (Auto) (0-5) /lpf U Epithel Cells (Auto) (0-5) /lpf Urine Bacteria (Auto) (Negative) COVID-19 Eval Order [facility]Rsv at [facility] SARS-CoV-2 (PCR) POSITIVE A* (Negative) Influenza Type A (PCR) Negative (Neg) Influenza Type B (PCR) Negative (Neg) RSV (RT-PCR) Negative (Neg) Blood Type Antibody Screen Administered Medications Albuterol (Albuterol 0.083% Nebu Soln 3 Ml Vial) 2.5 mg NEB Q6R [facility] Stop: 06/13/20 18:59 Last Admin: 05/15/20 13:55 Dose: 2.5 mg Documented by: [id number] Admin: 05/15/20 07:27 Dose: 2.5 mg Documented by: [id number] Admin: 05/14/20 23:51 Dose: 2.5 mg Documented by: [id number] Admin: 05/14/20 18:56 Dose: 2.5 mg Documented by: [id number] Enoxaparin Sodium (Enoxaparin Inj 30 Mg/0.3 Ml Syr) 30 mg SQ Q24H [facility] Stop: 06/13/20 16:29 Last Admin: 05/14/20 17:02 Dose: 30 mg Documented by: [id number] Enteral Nutritional Formula (Peptamen 1.5 Sim 1,000 Ml Bag) 1,000 ml GT UD [facility]; Protocol Stop: 06/14/20 10:29 Last Admin: 05/15/20 12:15 Dose: 1,000 ml Documented by: [id number] Fluoxetine HCl (Fluoxetine Hcl 20 Mg/5 Ml 120ml Btl) 40 mg GT QAM ANA ROSA Stop: 06/14/20 08:59 Last Admin: 05/15/20 08:20 Dose: 40 mg Documented by: [id number] Fluoxetine HCl (Fluoxetine Hcl 20 Mg/5 Ml Udp) 20 mg GT QPM ANA ROSA Stop: 06/13/20 20:59 Last Admin: 05/14/20 19:47 Dose: Not Given Documented by: [id number] Fluticasone/Vilanterol (Fluticasone/Vilanterol 100/25mcg 14 Puffs/Inhaler) 1 puffs INH DAILY [facility] Stop: 06/13/20 15:53 Last Admin: 05/15/20 08:20 Dose: 1 puffs Documented by: [id number] Admin: 05/14/20 17:07 Dose: 1 puffs Documented by: [id number] Hydromorphone HCl (Hydromorphone Hcl 2 Mg Tab) 4 mg PO Q6H PRN PRN Reason: Pain Stop: 05/28/20 15:53 Last Admin: 05/15/20 15:23 Dose: 4 mg Documented by: [id number] Hydromorphone HCl (Hydromorphone Inj 0.5 Mg/0.5 Ml Syr) 0.5 mg IV Q6H PRN PRN Reason: Pain Stop: 05/28/20 19:49 Last Admin: 05/15/20 08:20 Dose: 0.5 mg Documented by: [id number] Admin: 05/14/20 20:24 Dose: 0.5 mg Documented by: [id number] Remdesivir 100 mg/ Sodium (Chloride) 250 mls @ 250 mls/hr IV Q24H [facility]NA [facility]; Protocol Stop: 05/18/20 12:59 Last Infusion: 05/15/20 13:42 Dose: 0 mls/hr Documented by: [id number] Admin: 05/15/20 12:21 Dose: 250 mls/hr Documented by: [id number] Dexamethasone 6 mg/ Syringe 1.5 mls @ 1 mls/min IV DAILY ANA ROSA Stop: 05/25/20 08:59 Last Admin: 05/15/20 08:20 Dose: 1 mls/min Documented by: [id number] Lansoprazole (Lansoprazole 15 Mg Soltab) 15 mg GT BID ANA ROSA Stop: 06/13/20 20:59 Last Admin: 05/15/20 08:20 Dose: 15 mg Documented by: [id number] Admin: 05/14/20 22:37 Dose: 15 mg Documented by: [id number] Levothyroxine Sodium (Levothyroxine Sodium 75 Mcg Tablet) 75 mcg GT DAILYBB ANA ROSA Stop: 06/14/20 06:29 Last Admin: 05/15/20 08:20 Dose: 75 mcg Documented by: [id number] Lorazepam (Lorazepam 1 Mg Tab) 1 mg PEG Q6H PRN PRN Reason: Anxiety Stop: 06/14/20 07:51 Last Admin: 05/15/20 12:22 Dose: 1 mg Documented by: [id number] Olanzapine (Olanzapine Zydis 5 Mg Orally Dis. Tab) 5 mg PO HS ANA ROSA Stop: 06/13/20 20:59 Last Admin: 05/14/20 22:37 Dose: 5 mg Documented by: [id number] Pregabalin (Pregabalin 25 Mg Cap) 25 mg PO TID ANA ROSA Stop: 06/13/20 20:59 Last Admin: 05/15/20 14:27 Dose: 25 mg Documented by: [id number] Admin: 05/15/20 08:20 Dose: 25 mg Documented by: [id number] Admin: 05/14/20 22:37 Dose: 25 mg Documented by: [id number] Sodium Chloride (Sodium Chloride 0.9% 10ml Flush) 30 ml IV Q24H ANA ROSA Stop: 05/18/20 12:01 Last Admin: 05/15/20 13:42 Dose: 30 ml Documented by: [id number] Admin: 05/14/20 17:02 Dose: Not Given Documented by: [id number] Trazodone HCl (Trazodone Hcl 100 Mg Tab) 200 mg PO QPM ANA ROSA Stop: 06/13/20 20:59 Last Admin: 05/14/20 22:37 Dose: 200 mg Documented by: [id number] Discontinued Medications Albuterol (Albut/Ipratrop 3mg/0.5mg Neb 3 Ml Vial) 12 ml NEB ONE ONE Stop: 05/14/20 10:37 Last Admin: 05/14/20 11:14 Dose: 12 ml Documented by: [id number] Potassium Chloride (K Gavin / Wtr) 10 meq in 100 mls @ 100 mls/hr IV Q1H ANA ROSA Stop: 05/14/20 13:44 Last Infusion: 05/14/20 16:30 Dose: 0 mls/hr Documented by: [id number] Admin: 05/14/20 15:30 Dose: 100 mls/hr Documented by: [id number] Infusion: 05/14/20 14:57 Dose: 100 mls/hr Documented by: [id number] Admin: 05/14/20 13:57 Dose: 100 mls/hr Documented by: [id number] Magnesium Sulfate/Dextrose (Magnesium Sulfate / D5w) 1 gm in 100 mls @ 100 mls/hr IV NOW STA Stop: 05/14/20 12:44 Last Infusion: 05/14/20 15:00 Dose: 0 mls/hr Documented by: [id number] Admin: 05/14/20 13:57 Dose: 100 mls/hr Documented by: [id number] Acetaminophen (Ofirmev) 1,000 mg in 100 mls @ 400 mls/hr IV NOW STA Stop: 05/14/20 12:49 Last Infusion: 05/14/20 14:13 Dose: 0 mls/hr Documented by: [id number] Admin: 05/14/20 13:56 Dose: 400 mls/hr Documented by: [id number] Remdesivir 200 mg/ Sodium (Chloride) 250 mls @ 125 mls/hr IV ONE ONE; Protocol Stop: 05/14/20 15:59 Last Infusion: 05/14/20 17:40 Dose: 0 mls/hr Documented by: [id number] Admin: 05/14/20 15:35 Dose: 125 mls/hr Documented by: [id number] Potassium Chloride/Sodium Chloride (Normal Saline W/20 Meq Kcl) 20 meq in 1,000 mls @ 75 mls/hr IV .[id number] ANA ROSA Stop: 05/15/20 18:39 Last Infusion: 05/14/20 23:03 Dose: 0 mls/hr Documented by: [id number] Admin: 05/14/20 17:02 Dose: 75 mls/hr Documented by: [id number] Potassium Chloride/Dextrose/Sod Cl (D5nss + 20meq Kcl) 20 meq in 1,000 mls @ 100 mls/hr IV .Q10H ANA ROSA Stop: 05/16/20 01:14 Last Infusion: 05/15/20 11:55 Dose: 0 mls/hr Documented by: [id number] Admin: 05/15/20 06:40 Dose: 100 mls/hr Documented by: [id number] Infusion: 05/15/20 06:24 Dose: 100 mls/hr Documented by: [id number] Admin: 05/14/20 20:24 Dose: 100 mls/hr Documented by: [id number] Lorazepam (Lorazepam 0.5 Mg Tab) 0.5 mg PO NOW STA Stop: 05/14/20 22:23 Last Admin: 05/14/20 22:37 Dose: 0.5 mg Documented by: [id number] Methylprednisolone (Methylprednisolone 125 Mg/2 Ml Vial) 60 mg IV NOW STA Stop: 05/14/20 11:45 Last Admin: 05/14/20 13:57 Dose: 60 mg Documented by: [id number] Methylprednisolone (Methylprednisolone 125 Mg/2 Ml Vial) Confirm Administered Dose 125 mg .ROUTE .[facility] Stop: 05/14/20 13:51 Last Admin: 05/14/20 13:56 Dose: Not Given Documented by: [id number] Sodium Chloride (Sodium Chloride 0.9% 10ml Flush) 30 ml IV [facility] Stop: 05/14/20 16:01 Last Admin: 05/14/20 18:31 Dose: 30 ml Documented by: [id number] Imaging Data Attestation: I personally reviewed and interpreted this imaging study as follows: Radiologist's Impression: Chest X-Ray 05/14/20 10:35 SINGLE VIEW CHEST CLINICAL HISTORY: Sepsis. FINDINGS: An AP, portable, upright chest radiograph is compared to study dated 07/30/2017 and correlated with chest CT dated 07/12/2017. The examination is degraded by portable technique and patient rotation. The patient's head obscures the apices. A tracheostomy is in place. A left subclavian central venous infusion port has been removed from previous. The heart is enlarged. The pulmonary vasculature is noncongested. There is chronic elevation of right hemidiaphragm with bibasilar atelectasis. Foci of parenchymal scarring are seen throughout both lungs. Emphysema and chronic interstitial thickening is similar to previous. There are numerous scattered calcified granulomas. No large pleural effusion or pneumothorax is seen. The skeletal structures are osteopenic. The b bianca thorax is grossly intact. Intrathecal leads project over the thoracic spine. Degenerative change is noted in the shoulders. IMPRESSION: 1. Cardiomegaly and emphysema with no acute cardiopulmonary abnormality identified. 2. Chronic parenchymal changes as above. ACT 112: Negative or not required by law. Electronically signed by: Jose Henry M.D. 05/14/2020 12:16 PM Discharge Plan Visit Data Chief Complaint: Shortness of Breath/Dyspnea Stated Complaint: SOB ED Provider: Darryl Rausch Discharge Problem: Pneumonia due to COVID-19 virus, COPD (chronic obstructive pulmonary disease) Patient Disposition: Admitted As Inpatient Discharge Instructions Interventions: ED Discharge Assessment Last Done: 05/14/20 14:37 Discharge Problem: COPD (chronic obstructive pulmonary disease) Qualifiers: COPD type: unspecified COPD Qualified Code(s): J44.9 - Chronic obstructive pulmonary disease, unspecified
[2020-05-14 10:58] LABS: Basophils # (auto) 0.01 K/uL (0-0.2); Basophils % (auto) 0.1 %; Eosinophils # (auto) 0.03 K/uL (0-0.5); Eosinophils % (auto) 0.4 %; Hematocrit (blood only) 27.4 % (37-47); Hemoglobin 9.1 g/dL (12.0-16.0); Immature Granulocytes # (auto) 0.02 K/uL (0.00-0.02); Immature Granulocytes % (auto) 0.3 %; Lymphocytes # (auto) 0.13 K/uL (1.2-3.4); Lymphocytes % (auto) 1.7 %; Mean Corpuscular Hemoglobin 32.7 pg (25-34); Mean Corpuscular Hgb Conc 33.2 g/dL (32-36); Mean Corpuscular Volume 98.6 fL (80-100); Monocytes # (auto) 0.44 K/uL (0.11-0.59); Monocytes % (auto) 5.7 %; Neutrophils % (auto) 91.8 %; Platelet Count 462 K/uL (130-400); RDW Coefficient of Variation 14.7 % (11.5-14.5); RDW Standard Deviation 53.2 fL (36.4-46.3); Red Blood Count 2.78 M/uL (4.2-5.4); White Blood Count 7.73 K/uL (4.8-10.8)
[2020-05-14 11:10] LABS: INR 1.2 (0.9-1.1); Partial Thromboplastin Ratio 1.3; Partial Thromboplastin Time 34.3 Seconds (21.0-31.0); Prothrombin Time 11.7 Seconds (9.0-12.0)
[2020-05-14 11:16] LABS: Alanine Aminotransferase 12 U/L (12-78); Albumin Level 2.2 gm/dl (3.4-5.0); Aspartate Aminotransferase 23 U/L (15-37); BUN Creatinine Ratio 21.7 (10-20); Blood Urea Nitrogen 11 mg/dl (7-18); Calcium 8.6 mg/dl (8.5-10.1); Carbon Dioxide 33 mmol/L (21-32); Chloride 93 mmol/L (98-107); Est GFR (African American) 122.1; Est GFR (Non-African American) 105.3; Glucose 85 mg/dl (70-99); Magnesium 1.8 mg/dl (1.8-2.4); Potassium 3.3 mmol/L (3.5-5.1); Sodium 131 mmol/L (136-145)
[2020-05-14 11:21] LABS: Albumin Globulin Ratio 0.3 (0.9-2); Alkaline Phosphatase 97 U/L (45-117); Bilirubin,Total 0.2 mg/dl (0.2-1); Ferritin 380.5 ng/ml (8-388); Globulin 6.6 gm/dl (2.5-4.0); Total Protein 8.8 gm/dl (6.4-8.2); Troponin I < 0.015 ng/ml (0-0.045)
[2020-05-14] MEDS ORDERED: methylPREDNISolone 125 MG/2 ML VIAL IV STA (11:44)
[2020-05-14] MEDS ORDERED: MAGNESIUM SULFATE / D5W 1 GM/100 ML BAG IV STA (11:45)
[2020-05-14 11:58] LABS: Influenza A virus by PCR Negative (Neg); Influenza B virus by PCR Negative (Neg); RSV by PCR Negative (Neg)
--- NOTE | 2020-05-14 12:18 | XRay Report ---
SINGLE VIEW CHEST CLINICAL HISTORY: Sepsis. FINDINGS: An AP, portable, upright chest radiograph is compared to study dated 07/30/2017 and correlat ed with chest CT dated 07/12/2017. The examination is degraded by portable technique and patient rotati on. The patient's head obscures the apices. A tracheostomy is in place. A left subclavian central christine ous infusion port has been removed from previous. The heart is enlarged. The pulmonary vasculature is noncongested. There is chronic elevation of right hemidiaphragm with bibasilar atelectasis. Foci of parenchymal scarring are seen throughout both lungs. Emphysema and chronic interstitial thickening is similar to previous. There are numerous scattered calcified granulomas. No large pleural effusion or pneumothorax is seen. The skeletal structures are osteopenic. The bony thorax is grossly intact. Int rathecal leads project over the thoracic spine. Degenerative change is noted in the shoulders. IMPRESSION: 1. Cardiomegaly and emphysema with no acute cardiopulmonary abnormality identified. 2. Chronic parenchymal changes as above. ACT 112: Negative or not required by law. Electronically signed by: Jose Henry M.D. 05/14/2020 12:16 PM
[2020-05-14 12:29] LABS: SARS CoV2 RNA(COVID-19) InHosp POSITIVE (Negative)
[2020-05-14] MEDS ORDERED: ACETAMINOPHEN 1,000 MG/100 ML VIAL IV STA (12:35)
[2020-05-14] MEDS ORDERED: methylPREDNISolone 125 MG/2 ML VIAL ONE (13:50)
--- NOTE | 2020-05-14 13:52 | Electrocardiogram Report ---
Test Reason : Blood Pressure : / mmHG Vent. Rate : 100 BPM Atrial Rate : 100 BPM P-R Int : 184 ms QRS Dur : 084 ms QT Int : 378 ms P-R-T Axes : 072 078 022 degrees QTc Int : 487 ms Normal sinus rhythm Left atrial enlargement Diffuse Minor Nonspecific T wave abnormality Prolonged QT Abnormal ECG When compared with ECG of 13-JUL-2017 06:57, No significant change Confirmed by Efrain Galvan ([id number]) on 05/14/2020 1:51:58 PM Referred By: REFERRED SELF Confirmed By:Efrain Galvan
[2020-05-14] MEDS: POTASSIUM CHLORIDE / WTR 10 MEQ/100 ML PLCT IV SCH ×2 (13:57→15:30)
[2020-05-14] MEDS ORDERED: REMDESIVIR 200 MG in SODIUM CHLORIDE 0.9% 210 ML IV ONE ×2 (14:00→14:45)
--- NOTE | 2020-05-14 14:16 | History & Physical Report ---
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 Tanya Increasing shortness of breath and fever for the last 2 days COVID-19 is positive without any significant chest x-ray finding Has been requiring 35% FiO2 medications ambulation Discussed with the patient,the and the son and was started with Intravenous remdesivir, dexamethasone and convalescent plasma Oxygen administration to maintain saturation more than 90% (2) Oropharyngeal carcinoma: History of recurrent oropharyngeal squamous cell carcinoma status post Chemo and radiation therapy to or after the Status post tracheotomy and limited right neck dissection with direct laryngoscopy and biopsy on 04/13/2020 Has chronic pain due to carcinoma Has not been using any oxygen at home (3) S/P percutaneous endoscopic gastrostomy (PEG) tube placement: Status post percutaneous gastrostomy tube placement CT of the abdomen and pelvis did not show any significant findings but possible colitis We will continue PEG tube feeding (4) COPD (chronic obstructive pulmonary disease): History of COPD history of tobacco use disorder We will continue current medications Does not seem slightly evaluation (5) Anxiety: (6) Depression: (7) Hypothyroidism: Continue supplement DVT prophylaxis Lovenox subcu CODE STATUS Full code This was discussed with her and her son in detail History of Present Illness Chief Complaint: Cough with increasing shortness of breath for 2 days and fever this morning Primary Care Provider: Lg Govea DO She is a 59-year-old with significant complicated past medical history of recurrent oropharyngeal squamous cell carcinoma status post chemo and radiation treatment in 2018 and tracheotomy with limited right neck dissection on 04/13/2020, status post percutaneous endoscopic gastrostomy tube, severe COPD, type 2 diabetes, GERD, hypothyroidism and cancer related chronic pain apparently complaining of shortness of breath since yesterday and noted to have fever of 102 F this morning. She has been exposed to her who was diagnosed with COVID-19 about 2 weeks ago and did not receive any treatment as he was not to most symptomatic. Her other family member has also been diagnosed with COVID- 19. She complains to have shortness of breath and cough and feverish feeling during examination in the emergency room but did not have any acute pain, any nausea and/or vomiting. She has been requiring 35% FiO2 to maintain saturation and her x-ray did show severe COPD but no evidence of pneumonia. She was admitted to telemetry unit under Covid isolation and was started with intravenous remdesivir, dexamethasone and convalescent plasma when available. She recently finished a course of azithromycin. And also cephalexin prior to that. Allergies Allergy/AdvReac Type Severity Reaction Status Date / Time No Known Allergies Allergy Mild NONE Verified 05/14/20 15:02 Home Medications Medication Instructions Recorded Confirmed Type albuterol sulfate 2 puff INHALATION QID 05/14/20 05/14/20 History albuterol sulfate 2.5 mg INHALATION Q4H PRN 05/14/20 05/14/20 History azithromycin 250 mg FEEDING TUBE UD 05/14/20 05/14/20 History buprenorphine 1 patch TOPICAL WK 05/14/20 05/14/20 History fluoxetine 20 mg FEEDING TUBE QPM 05/14/20 05/14/20 History fluoxetine 40 mg FEEDING TUBE QAM 05/14/20 05/14/20 History fluticasone furoate-vilanterol 1 ea INHALATION DAILY 05/14/20 05/14/20 History [Breo Ellipta] hydromorphone 4 mg PO Q6H PRN 05/14/20 05/14/20 History lansoprazole 15 mg FEEDING TUBE BID 05/14/20 05/14/20 History lorazepam 1 mg FEEDING TUBE Q6H PRN 05/14/20 05/14/20 History olanzapine 5 mg FEEDING TUBE HS 05/14/20 05/14/20 History ondansetron 8 mg PO Q8H PRN 05/14/20 05/14/20 History oxycodone 15 mg FEEDING TUBE Q3H PRN 05/14/20 05/14/20 History pregabalin 25 mg FEEDING TUBE TID 05/14/20 05/14/20 History promethazine 6.25 mg FEEDING TUBE QID PRN 05/14/20 05/14/20 History trazodone 200 mg FEEDING TUBE QPM 05/14/20 05/14/20 History Past Med/Surg History Medical History (Updated 05/14/20 @ 14:10 by Kenny Guillaume MD) Anxiety Chronic cough 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, has a remote but cant find it. She will keep looking for it and what type her device is. S/P percutaneous endoscopic gastrostomy (PEG) tube placement Social History Smoking Status: Unknown if ever smoked Cigarettes Per Day: 1ppd; Second Hand Exposure: No; Hx Alcohol Use: Yes Hx Substance Use: No Preferred Language: French Communication Ability: Effective Sweeping Compound Blender Required: No Beliefs That Will Affect Care: None Current Living Situation: Spouse Feels Safe at Home: Yes Assistive Devices: Glasses Review of Systems Review of Systems: All systems reviewed & are unremarkable except as noted in HPI & below Physical Exam Physical Exam: Lying in bed with moderate shortness of breath at rest Constitutional: + acute distress (Due to shortness of breath), + ill appearing, + thin and + malnourished Eyes: PERRL, conjunctivae normal, anicteric sclerae ENMT: Mouth: + tongue abnormality (Macroglossia) Neck: Tracheotomy tube is intact Respiratory: + respiratory distress Auscultation: + diminished lung sounds and + crackles (Minimal bibasilar crackles); no wheezes Cardiovascular: Rate/Rhythm: regular rate, regular rhythm and + tachycardic Heart Sounds: no murmur Extremities: no edema Gastrointestinal (Abdomen): Inspection/Auscultation: normal bowel sounds; abdomen not distended Percussion/Palpation: abdomen soft; abdomen nontender PEG tube in situ Musculoskeletal: No acute arthritis in any joint Neurologic: Alert, awake. Generally weak and moving all limbs equally Lymphatic: no cervical or axillary lymphadenopathy Results & Data Results & Data ([facility]) Vital Signs (Past 12 Hours) Vital Signs Temp Pulse Pulse Resp BP Pulse Ox 05/14/20 13:40 95 H 16 94 05/14/20 13:31 95 H 18 93 05/14/20 13:30 96 H 17 103/59 L 93 05/14/20 13:20 96 H 20 92 05/14/20 13:10 100 H 29 H 92 05/14/20 13:00 95 H 26 H 96/64 L 93 05/14/20 12:40 89 15 95 05/14/20 12:20 98 H 18 97 05/14/20 12:10 93 H 22 93 05/14/20 12:01 90 20 93 05/14/20 12:00 90 19 95/56 L 92 05/14/20 11:50 90 16 91 05/14/20 11:40 90 20 91 05/14/20 11:31 90 16 91 05/14/20 11:30 91 H 19 104/62 92 05/14/20 11:20 91 H 94 05/14/20 11:14 93 H 20 93 05/14/20 11:10 93 H 94 05/14/20 11:00 105 H 105/65 92 05/14/20 10:55 37.4 C 100 H 28 H 88 L 05/14/20 10:36 93 H 20 91 Laboratory Results Short CBC 05/14/20 Range/Units 10:47 WBC 7.73 (4.8-10.8) K/uL Hgb 9.1 L (12.0-16.0) g/dL Hct 27.4 L (37-47) % Plt Count 462 H (130-400) K/uL BMP 05/14/20 10:47 Sodium 131 L Potassium 3.3 L Chloride 93 L Carbon Dioxide 33 H BUN 11 Creatinine 0.52 L Glucose 85 Calcium 8.6 Cardiac Enzymes 05/14/20 Range/Units 10:47 Troponin I < 0.015 (0-0.045) ng/ml Liver Function 05/14/20 Range/Units 10:47 Total Bilirubin 0.2 (0.2-1) mg/dl AST 23 (15-37) U/L ALT 12 (12-78) U/L Alkaline Phosphatase 97 (45-117) U/L Albumin 2.2 L (3.4-5.0) gm/dl Diagnostic Findings Chest x-ray:1. Cardiomegaly and emphysema with no acute cardiopulmonary abnor mality identified. 2. Chronic parenchymal changes as above. CT of the abdomen and pelvis: 1. PEG tube appears to be in good position within the mid stomach. 2. No evidence for abscess collection or obstructive change. 3. Mild wall edema of the sigmoid colon raising the possibility of a nonspecific colitis. 4. Study is again negative for abscess collection or obstruction. Medications Administered Current Inpatient Medications Remdesivir 100 mg/ Sodium (Chloride) 250 mls @ 250 mls/hr IV Q24H [facility]; Protocol Stop: 05/18/20 14:44 Dexamethasone 6 mg/ Syringe 1.5 mls @ 1 mls/min IV DAILY [facility] Stop: 05/25/20 08:59 Remdesivir 200 mg/ Sodium (Chloride) 250 mls @ 125 mls/hr IV ONE ONE; Protocol Stop: 05/14/20 15:59 Sodium Chloride (Sodium Chloride 0.9% 10ml Flush) 30 ml IV Q24H [facility] Stop: 05/18/20 13:46 Sodium Chloride (Sodium Chloride 0.9% 10ml Flush) 30 ml IV [facility] Stop: 05/14/20 16:01 Code Status & VTE Plan VTE Prophylaxis Plan VTE Prophylaxis will be ordered: Yes
[2020-05-14] MEDS ORDERED: PROMETHAZINE HCL 12.5 MG/10 ML UDP GT PRN (15:54)
[2020-05-14] MEDS ORDERED: SODIUM CHLORIDE 0.9% 10ML FLUSH IV SCH (16:00)
[2020-05-14] MEDS ORDERED: NSS + 20MEQ KCL 20 MEQ/1,000 ML BAG IV SCH (16:00)
[2020-05-14] MEDS ORDERED: PROMETHAZINE HCL SYRUP 6.25 MG/5 ML GT PRN (16:10)
[2020-05-14] MEDS: SODIUM CHLORIDE 0.9% 10ML FLUSH IV SCH (17:02)
[2020-05-14] MEDS: ENOXAPARIN INJ 30 MG/0.3 ML SYR SQ SCH (17:02)
[2020-05-14] MEDS: FLUTICASONE/VILANTEROL 100/25MCG 14 PUFFS/INHALER INH SCH (17:07)
[2020-05-14] MEDS: ALBUTEROL 0.083% NEBU SOLN 3 ML VIAL NEB SCH ×2 (18:56→23:51)
[2020-05-14] MEDS: traZODone HCL 100 MG TAB PO SCH ×2 (19:46→22:37)
[2020-05-14] MEDS: LANSOPRAZOLE 15 MG SOLTAB GT SCH ×2 (19:47→22:37)
[2020-05-14] MEDS: PREGABALIN 25 MG CAP PO SCH ×2 (19:47→22:37)
[2020-05-14] MEDS: OLANZapine ZYDIS 5 MG ORALLY DIS. TAB PO SCH ×2 (19:47→22:37)
[2020-05-14] MEDS: D5NSS + 20MEQ KCL 20 MEQ/1,000 ML BAG IV SCH (20:24)
[2020-05-14] MEDS: HYDROmorphone INJ 0.5 MG/0.5 ML SYR IV PRN (20:24)
[2020-05-14] MEDS ORDERED: LORazepam 0.5 MG TAB PO STA (22:22)
[2020-05-15 06:38] LABS: Basophils # (auto) 0.01 K/uL (0-0.2); Basophils % (auto) 0.3 %; Eosinophils # (auto) 0.02 K/uL (0-0.5); Eosinophils % (auto) 0.5 %; Hematocrit (blood only) 29.5 % (37-47); Hemoglobin 9.7 g/dL (12.0-16.0); Immature Granulocytes # (auto) 0.02 K/uL (0.00-0.02); Immature Granulocytes % (auto) 0.5 %; Lymphocytes # (auto) 0.67 K/uL (1.2-3.4); Lymphocytes % (auto) 17.4 %; Mean Corpuscular Hemoglobin 32.6 pg (25-34); Mean Corpuscular Hgb Conc 32.9 g/dL (32-36); Monocytes # (auto) 0.75 K/uL (0.11-0.59); Monocytes % (auto) 19.4 %; Neutrophils # (auto) 2.39 K/uL (1.4-6.5); Neutrophils % (auto) 61.9 %; Platelet Count 465 K/uL (130-400); RDW Coefficient of Variation 14.9 % (11.5-14.5); RDW Standard Deviation 54.3 fL (36.4-46.3); Red Blood Count 2.98 M/uL (4.2-5.4); White Blood Count 3.86 K/uL (4.8-10.8)
[2020-05-15] MEDS: D5NSS + 20MEQ KCL 20 MEQ/1,000 ML BAG IV SCH (06:40)
[2020-05-15 06:55] LABS: Appearance Urine Clear (Clear); Bacteria Urine Automated Negative (Negative); Bilirubin Urine Negative (Negative); Blood Urine 3+ (Negative); Color Urine Yellow; Epithelial Cell Urine Auto 20-30 /lpf (0-5); Glucose Urine UA Negative (Negative); Ketones Urine Negative (Negative); Leukocyte Esterase Urine Negative (Negative); Nitrite Urine Negative (Negative); Protein Urine Trace (Negative); RBC Urine Automated >30 /hpf (0-4); Urobilinogen Urine Negative (Negative)
[2020-05-15 07:07] LABS: Albumin Level 1.9 gm/dl (3.4-5.0); Calcium 8.4 mg/dl (8.5-10.1); Creatinine Clr Calc Pharmacy 98.5 ml/min; Est GFR (African American) 126.2; Est GFR (Non-African American) 108.9; Potassium 3.6 mmol/L (3.5-5.1)
[2020-05-15 07:14] LABS: Albumin Globulin Ratio 0.3 (0.9-2); Bilirubin,Total 0.2 mg/dl (0.2-1); Globulin 6.2 gm/dl (2.5-4.0); Total Protein 8.1 gm/dl (6.4-8.2)
[2020-05-15] MEDS: ALBUTEROL 0.083% NEBU SOLN 3 ML VIAL NEB SCH ×3 (07:27→19:35)
[2020-05-15] MEDS: LANSOPRAZOLE 15 MG SOLTAB GT SCH ×2 (08:20→20:05)
[2020-05-15] MEDS: HYDROmorphone INJ 0.5 MG/0.5 ML SYR IV PRN ×2 (08:20→22:35)
[2020-05-15] MEDS: FLUoxetine HCL 20 MG/5 ML 120ML BTL GT SCH (08:20)
[2020-05-15] MEDS: PREGABALIN 25 MG CAP PO SCH ×3 (08:20→20:05)
[2020-05-15] MEDS: FLUTICASONE/VILANTEROL 100/25MCG 14 PUFFS/INHALER INH SCH (08:20)
[2020-05-15] MEDS: dexAMETHasone 6 MG in SYRINGE 0 ML IV SCH (08:20)
[2020-05-15] MEDS: LEVOTHYROXINE SODIUM 75 MCG TABLET GT SCH (08:20)
[2020-05-15] MEDS: PEPTAMEN 1.5 CAL 1,000 ML BAG GT SCH (12:15)
[2020-05-15] MEDS: REMDESIVIR 100 MG in SODIUM CHLORIDE 0.9% 230 ML IV SCH (12:21)
[2020-05-15] MEDS: LORazepam 1 MG TAB PEG PRN ×2 (12:22→22:35)
[2020-05-15] MEDS: SODIUM CHLORIDE 0.9% 10ML FLUSH IV SCH (13:42)
[2020-05-15] MEDS: HYDROmorphone HCL 2 MG TAB PO PRN ×2 (15:23→20:07)
--- NOTE | 2020-05-15 16:52 | Hospitalist Progress Note ---
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 Increasing shortness of breath and fever for the last 2 days COVID-19 is positive without any significant chest x-ray finding Has been requiring 35% FiO2 medications ambulation Discussed with the patient,the and the son and was started with Intravenous remdesivir, dexamethasone and convalescent plasma Oxygen administration to maintain saturation more than 90% Clinically much better and is requiring about 5 L of oxygen to maintain saturation Denies any fever and/or chills or any increasing shortness of breath (2) Oropharyngeal carcinoma: History of recurrent oropharyngeal squamous cell carcinoma status post Chemo and radiation therapy to me after the Status post tracheotomy and limited right neck dissection with direct laryngoscopy and biopsy on 04/13/2020 Has chronic pain due to carcinoma Has not been using any oxygen at home No acute symptoms (3) S/P percutaneous endoscopic gastrostomy (PEG) tube placement: Status post percutaneous gastrostomy tube placement CT of the abdomen and pelvis did not show any significant findings but possible colitis We will continue PEG tube feeding (4) COPD (chronic obstructive pulmonary disease): History of COPD history of tobacco use disorder We will continue current medications Does not seem to have any exacerbation (5) Anxiety: (6) Depression: (7) Hypothyroidism: Continue supplement DVT prophylaxis Lovenox subcu CODE STATUS Full code This was discussed with her and her son in detail Admission and Anticipated Discharge Date Admission Date: May 14, 2020 Subjective 05/15/2020 The patient was seen and examined in telemetry/Covid unit She has been feeling much better and is requiring about 5 L of oxygen to maintain saturation Denies any other significant symptoms Review of Systems Review of Systems: All systems reviewed and are unremarkable except as noted below Physical Exam Physical Exam: Lying in bed with minimal shortness of breath at rest Constitutional: + acute distress (Due to shortness of breath), + ill appearing, + thin and + malnourished Eyes: PERRL, conjunctivae normal, anicteric sclerae ENMT: Mouth: + tongue abnormality (Macroglossia) Respiratory: + respiratory distress Auscultation: + diminished lung sounds and + crackles (Minimal bibasilar crackles); no wheezes Cardiovascular: Rate/Rhythm: regular rate, regular rhythm and + tachycardic Heart Sounds: no murmur Extremities: no edema Gastrointestinal (Abdomen): Inspection/Auscultation: normal bowel sounds; abdomen not distended Percussion/Palpation: abdomen soft; abdomen nontender Musculoskeletal: No acute arthritis in any joint Neurologic: Alert, awake and oriented x3. Generally weak but no focal weakness Lymphatic: no cervical or axillary lymphadenopathy Results & Data Results & Data ([facility]) Vital Signs (Past 12 Hours) Vital Signs Temp Pulse Pulse Resp BP Pulse Ox 05/15/20 15:29 36.3 C L 84 18 114/77 97 05/15/20 14:30 96 05/15/20 13:55 70 18 98 05/15/20 13:30 97 05/15/20 12:00 96 05/15/20 11:24 37.0 C 69 16 114/69 95 05/15/20 08:00 71 05/15/20 07:33 36.7 C 74 18 106/65 97 05/15/20 07:27 96 H 20 98 Laboratory Results Short CBC 05/15/20 Range/Units 06:06 WBC 3.86 L (4.8-10.8) K/uL Hgb 9.7 L (12.0-16.0) g/dL Hct 29.5 L (37-47) % Plt Count 465 H (130-400) K/uL BMP 05/15/20 06:06 Sodium 136 Potassium 3.6 Chloride 101 Carbon Dioxide 32 BUN 8 Creatinine 0.47 L Glucose 74 Calcium 8.4 L Liver Function 05/15/20 Range/Units 06:06 Total Bilirubin 0.2 (0.2-1) mg/dl AST 23 (15-37) U/L ALT 11 L (12-78) U/L Alkaline Phosphatase 87 (45-117) U/L Albumin 1.9 L (3.4-5.0) gm/dl Urine 05/14/20 Range/Units 06:17 Urine Color Yellow Urine Appearance Clear (Clear) Urine pH 6.0 (4.5-7.5) Ur Specific Chambers 1.020 (1.000-1.030) Urine Protein Trace H (Negative) Urine Glucose (UA) Negative (Negative) Medications Administered Current Inpatient Medications Albuterol (Albuterol 0.083% Nebu Soln 3 Ml Vial) 2.5 mg NEB Q6R [facility] Stop: 06/13/20 18:59 Last Admin: 05/15/20 13:55 Dose: 2.5 mg Documented by: Buprenorphine HCl (Buprenorphine 5 Mcg/Hr Tdsy) 10 mcg TD Fr@0800 [facility] Stop: 06/18/20 07:59 Enoxaparin Sodium (Enoxaparin Inj 30 Mg/0.3 Ml Syr) 30 mg SQ Q24H [facility] Stop: 06/13/20 16:29 Last Admin: 05/14/20 17:02 Dose: 30 mg Documented by: Enteral Nutritional Formula (Peptamen 1.5 Sim 1,000 Ml Bag) 1,000 ml GT UD [facility]; Protocol Stop: 06/14/20 10:29 Last Admin: 05/15/20 12:15 Dose: 1,000 ml Documented by: Fluoxetine HCl (Fluoxetine Hcl 20 Mg/5 Ml 120ml Btl) 40 mg GT QAM [facility] Stop: 06/14/20 08:59 Last Admin: 05/15/20 08:20 Dose: 40 mg Documented by: Fluoxetine HCl (Fluoxetine Hcl 20 Mg/5 Ml Udp) 20 mg GT QPM [facility] Stop: 06/13/20 20:59 Last Admin: 05/14/20 19:47 Dose: Not Given Documented by: Fluticasone/Vilanterol (Fluticasone/Vilanterol 100/25mcg 14 Puffs/Inhaler) 1 puffs INH DAILY [facility] Stop: 06/13/20 15:53 Last Admin: 05/15/20 08:20 Dose: 1 puffs Documented by: Hydromorphone HCl (Hydromorphone Hcl 2 Mg Tab) 4 mg PO Q6H PRN PRN Reason: Pain Stop: 05/28/20 15:53 Last Admin: 05/15/20 15:23 Dose: 4 mg Documented by: Hydromorphone HCl (Hydromorphone Inj 0.5 Mg/0.5 Ml Syr) 0.5 mg IV Q6H PRN PRN Reason: Pain Stop: 05/28/20 19:49 Last Admin: 05/15/20 08:20 Dose: 0.5 mg Documented by: Remdesivir 100 mg/ Sodium (Chloride) 250 mls @ 250 mls/hr IV Q24H [facility]; Protocol Stop: 05/18/20 12:59 Last Infusion: 05/15/20 13:42 Dose: Infused Documented by: Dexamethasone 6 mg/ Syringe 1.5 mls @ 1 mls/min IV DAILY [facility] Stop: 05/25/20 08:59 Last Admin: 05/15/20 08:20 Dose: 1 mls/min Documented by: Lansoprazole (Lansoprazole 15 Mg Soltab) 15 mg GT BID [facility] Stop: 06/13/20 20:59 Last Admin: 05/15/20 08:20 Dose: 15 mg Documented by: Levothyroxine Sodium (Levothyroxine Sodium 75 Mcg Tablet) 75 mcg GT DAILYBB [facility] Stop: 06/14/20 06:29 Last Admin: 05/15/20 08:20 Dose: 75 mcg Documented by: Lorazepam (Lorazepam 1 Mg Tab) 1 mg PEG Q6H PRN PRN Reason: Anxiety Stop: 06/14/20 07:51 Last Admin: 05/15/20 12:22 Dose: 1 mg Documented by: Olanzapine (Olanzapine Zydis 5 Mg Orally Dis. Tab) 5 mg PO HS [facility] Stop: 06/13/20 20:59 Last Admin: 05/14/20 22:37 Dose: 5 mg Documented by: Pregabalin (Pregabalin 25 Mg Cap) 25 mg PO TID [facility] Stop: 06/13/20 20:59 Last Admin: 05/15/20 14:27 Dose: 25 mg Documented by: Promethazine HCl (Promethazine Hcl Syrup 6.25 Mg/5 Ml) 6.25 mg GT QID PRN PRN Reason: Nausea Stop: 06/13/20 16:09 Sodium Chloride (Sodium Chloride 0.9% 10ml Flush) 30 ml IV Q24H [facility] Stop: 05/18/20 12:01 Last Admin: 05/15/20 13:42 Dose: 30 ml Documented by: Trazodone HCl (Trazodone Hcl 100 Mg Tab) 200 mg PO QPM [facility] Stop: 06/13/20 20:59 Last Admin: 05/14/20 22:37 Dose: 200 mg Documented by: (1) COPD (chronic obstructive pulmonary disease) COPD type: unspecified COPD Qualified Code(s): J44.9 - Chronic obstructive pulmonary disease, unspecified
[2020-05-15] MEDS: ENOXAPARIN INJ 30 MG/0.3 ML SYR SQ SCH (17:31)
[2020-05-15] MEDS: oxyCODONE HCL SOLN 5 MG/5 ML UDC GT PRN (18:34)
[2020-05-15] MEDS: traZODone HCL 100 MG TAB PO SCH (20:05)
[2020-05-15] MEDS: OLANZapine ZYDIS 5 MG ORALLY DIS. TAB PO SCH (20:06)
[2020-05-16] MEDS: ALBUTEROL 0.083% NEBU SOLN 3 ML VIAL NEB SCH ×4 (01:18→19:31)
[2020-05-16] MEDS: oxyCODONE HCL SOLN 5 MG/5 ML UDC GT PRN ×4 (03:39→21:54)
[2020-05-16] MEDS: LEVOTHYROXINE SODIUM 75 MCG TABLET GT SCH (06:14)
[2020-05-16] MEDS: PREGABALIN 25 MG CAP PO SCH ×3 (07:50→21:54)
[2020-05-16] MEDS: dexAMETHasone 6 MG in SYRINGE 0 ML IV SCH (07:50)
[2020-05-16] MEDS: HYDROmorphone HCL 2 MG TAB PO PRN ×3 (07:50→19:50)
[2020-05-16] MEDS: FLUTICASONE/VILANTEROL 100/25MCG 14 PUFFS/INHALER INH SCH (07:51)
[2020-05-16] MEDS: FLUoxetine HCL 20 MG/5 ML 120ML BTL GT SCH (07:51)
[2020-05-16] MEDS: LANSOPRAZOLE 15 MG SOLTAB GT SCH (07:51)
[2020-05-16] MEDS: LORazepam 1 MG TAB PEG PRN ×2 (10:53→18:08)
[2020-05-16] MEDS: REMDESIVIR 100 MG in SODIUM CHLORIDE 0.9% 230 ML IV SCH (12:34)
[2020-05-16] MEDS: SODIUM CHLORIDE 0.9% 10ML FLUSH IV SCH (13:50)
--- NOTE | 2020-05-16 16:12 | Hospitalist Progress Note ---
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 Increasing shortness of breath and fever for the last 2 days COVID-19 is positive without any significant chest x-ray finding Has been requiring 35% FiO2 medications ambulation Discussed with the patient,the and the son and was started with Intravenous remdesivir, dexamethasone and convalescent plasma Oxygen administration to maintain saturation more than 90% Clinically much better and is requiring about 5 L of oxygen to maintain saturation Denies any fever and/or chills or any increasing shortness of breath Saturating well with trach collar and room air We will need to finish the course of remdesivir before she can be discharged (2) Oropharyngeal carcinoma: History of recurrent oropharyngeal squamous cell carcinoma status post Chemo and radiation therapy to me after the Status post tracheotomy and limited right neck dissection with direct laryngoscopy and biopsy on 04/13/2020 Has chronic pain due to carcinoma Has not been using any oxygen at home No acute symptoms (3) S/P percutaneous endoscopic gastrostomy (PEG) tube placement: Status post percutaneous gastrostomy tube placement CT of the abdomen and pelvis did not show any significant findings but possible colitis We will continue PEG tube feeding (4) COPD (chronic obstructive pulmonary disease): History of COPD history of tobacco use disorder We will continue current medications Does not seem to have any exacerbation (5) Anxiety: (6) Depression: (7) Hypothyroidism: Continue supplement DVT prophylaxis Lovenox subcu CODE STATUS Full code This was discussed with her and her son in detail Likely discharge following the final dose of remdesivir Admission and Anticipated Discharge Date Admission Date: May 14, 2020 Subjective 05/15/2020 The patient was seen and examined in telemetry/Covid unit She has been feeling much better and is requiring about 5 L of oxygen to maintain saturation Denies any other significant symptoms 05/16/2020 The patient was seen and examined in telemetry/Covid unit She has been doing much better and back to her baseline regarding oxygen requirement Denies any significant cough and/or shortness of breath at rest Review of Systems Review of Systems: All systems reviewed and are unremarkable except as noted below Physical Exam Physical Exam: Lying in bed without any shortness of breath at rest Constitutional: + thin and + malnourished; no acute distress (Due to shortness of breath) and not ill appearing Eyes: PERRL, conjunctivae normal, anicteric sclerae ENMT: Mouth: no tongue abnormality (Macroglossia) Tracheostomy tube is in situ Respiratory: no respiratory distress Auscultation: + diminished lung sounds and + crackles (Minimal bibasilar crackles); no wheezes Cardiovascular: Rate/Rhythm: regular rate, regular rhythm and + tachycardic Heart Sounds: no murmur Extremities: no edema Gastrointestinal (Abdomen): Inspection/Auscultation: normal bowel sounds; abdomen not distended Percussion/Palpation: abdomen soft; abdomen nontender Musculoskeletal: No acute arthritis in any joint Neurologic: Alert, awake and oriented x3. Generally weak but no focal weakness Lymphatic: no cervical or axillary lymphadenopathy Results & Data Results & Data ([facility]) Vital Signs (Past 12 Hours) Vital Signs Temp Pulse Pulse Resp BP Pulse Ox 05/16/20 15:33 36.5 C 67 18 104/64 93 05/16/20 12:30 59 L 16 93 05/16/20 11:25 94 05/16/20 11:14 36.3 C L 76 19 108/67 94 05/16/20 08:00 64 05/16/20 07:46 68 16 97 05/16/20 07:17 36.6 C 66 17 107/67 97 Medications Administered Current Inpatient Medications Albuterol (Albuterol 0.083% Nebu Soln 3 Ml Vial) 2.5 mg NEB Q6R [facility] Stop: 06/13/20 18:59 Last Admin: 05/16/20 12:30 Dose: 2.5 mg Documented by: Buprenorphine HCl (Buprenorphine 5 Mcg/Hr Tdsy) 10 mcg TD Fr@0800 ANA ROSA Stop: 06/18/20 07:59 Enoxaparin Sodium (Enoxaparin Inj 30 Mg/0.3 Ml Syr) 30 mg SQ Q24H [facility] Stop: 06/13/20 16:29 Last Admin: 05/15/20 17:31 Dose: 30 mg Documented by: Enteral Nutritional Formula (Peptamen 1.5 Sim 1,000 Ml Bag) 1,000 ml GT ANA ROSA; Protocol Stop: 06/14/20 10:29 Last Admin: 05/15/20 12:15 Dose: 1,000 ml Documented by: Fluoxetine HCl (Fluoxetine Hcl 20 Mg/5 Ml 120ml Btl) 40 mg GT QAM ANA ROSA Stop: 06/14/20 08:59 Last Admin: 05/16/20 07:51 Dose: 40 mg Documented by: Fluoxetine HCl (Fluoxetine Hcl 20 Mg/5 Ml Udp) 20 mg GT QPM ANA ROSA Stop: 06/13/20 20:59 Last Admin: 05/15/20 20:07 Dose: 20 mg Documented by: Fluticasone/Vilanterol (Fluticasone/Vilanterol 100/25mcg 14 Puffs/Inhaler) 1 puffs INH DAILY ANA ROSA Stop: 06/13/20 15:53 Last Admin: 05/16/20 07:51 Dose: 1 puffs Documented by: Hydromorphone HCl (Hydromorphone Hcl 2 Mg Tab) 4 mg PO Q6H PRN PRN Reason: Pain Stop: 05/28/20 15:53 Last Admin: 05/16/20 13:50 Dose: 4 mg Documented by: Hydromorphone HCl (Hydromorphone Inj 0.5 Mg/0.5 Ml Syr) 0.5 mg IV Q6H PRN PRN Reason: Pain Stop: 05/28/20 19:49 Last Admin: 05/15/20 22:35 Dose: 0.5 mg Documented by: Remdesivir 100 mg/ Sodium (Chloride) 250 mls @ 250 mls/hr IV Q24H ANA ROSA; Protocol Stop: 05/18/20 12:59 Last Infusion: 05/16/20 13:35 Dose: Infused Documented by: Dexamethasone 6 mg/ Syringe 1.5 mls @ 1 mls/min IV DAILY ANA ROSA Stop: 05/25/20 08:59 Last Admin: 05/16/20 07:50 Dose: 1 mls/min Documented by: Lansoprazole (Lansoprazole 15 Mg Soltab) 15 mg GT BID ANA ROSA Stop: 06/13/20 20:59 Last Admin: 05/16/20 07:51 Dose: 15 mg Documented by: Levothyroxine Sodium (Levothyroxine Sodium 75 Mcg Tablet) 75 mcg GT DAILYBB ANA ROSA Stop: 06/14/20 06:29 Last Admin: 05/16/20 06:14 Dose: 75 mcg Documented by: Lorazepam (Lorazepam 1 Mg Tab) 1 mg PEG Q6H PRN PRN Reason: Anxiety Stop: 06/14/20 07:51 Last Admin: 05/16/20 10:53 Dose: 1 mg Documented by: Olanzapine (Olanzapine Zydis 5 Mg Orally Dis. Tab) 5 mg PO HS ANA ROSA Stop: 06/13/20 20:59 Last Admin: 05/15/20 20:06 Dose: 5 mg Documented by: Oxycodone HCl (Oxycodone Hcl Soln 5 Mg/5 Ml Udc) 15 mg GT Q3H PRN PRN Reason: Breakthrough Pain Stop: 05/29/20 18:09 Last Admin: 05/16/20 11:23 Dose: 15 mg Documented by: Pregabalin (Pregabalin 25 Mg Cap) 25 mg PO TID ANA ROSA Stop: 06/13/20 20:59 Last Admin: 05/16/20 13:51 Dose: 25 mg Documented by: Promethazine HCl (Promethazine Hcl Syrup 6.25 Mg/5 Ml) 6.25 mg GT QID PRN PRN Reason: Nausea Stop: 06/13/20 16:09 Sodium Chloride (Sodium Chloride 0.9% 10ml Flush) 30 ml IV Q24H ANA ROSA Stop: 05/18/20 12:01 Last Admin: 05/16/20 13:50 Dose: 30 ml Documented by: Trazodone HCl (Trazodone Hcl 100 Mg Tab) 200 mg PO QPM ANA ROSA Stop: 06/13/20 20:59 Last Admin: 05/15/20 20:05 Dose: 200 mg Documented by: (1) COPD (chronic obstructive pulmonary disease) COPD type: unspecified COPD Qualified Code(s): J44.9 - Chronic obstructive pulmonary disease, unspecified
[2020-05-16] MEDS: ENOXAPARIN INJ 30 MG/0.3 ML SYR SQ SCH (16:36)
[2020-05-16] MEDS: PEPTAMEN 1.5 CAL 1,000 ML BAG GT SCH (18:08)
[2020-05-16] MEDS: traZODone HCL 100 MG TAB PO SCH (21:54)
[2020-05-16] MEDS: OLANZapine ZYDIS 5 MG ORALLY DIS. TAB PO SCH (21:54)
[2020-05-17] MEDS: LORazepam 1 MG TAB PEG PRN ×3 (00:17→19:58)
[2020-05-17] MEDS: LANSOPRAZOLE 15 MG SOLTAB GT SCH ×3 (01:55→22:41)
[2020-05-17] MEDS: HYDROmorphone HCL 2 MG TAB PO PRN ×4 (01:55→22:40)
[2020-05-17] MEDS: LEVOTHYROXINE SODIUM 75 MCG TABLET GT SCH (06:29)
[2020-05-17] MEDS: oxyCODONE HCL SOLN 5 MG/5 ML UDC GT PRN ×4 (06:29→19:58)
[2020-05-17 07:52] LABS: Creatinine Clr Calc Pharmacy 105.2 ml/min; Est GFR (Non-African American) 111.3
[2020-05-17] MEDS: ALBUTEROL 0.083% NEBU SOLN 3 ML VIAL NEB SCH ×4 (08:26→19:25)
[2020-05-17] MEDS: dexAMETHasone 6 MG in SYRINGE 0 ML IV SCH (09:07)
[2020-05-17] MEDS: PREGABALIN 25 MG CAP PO SCH ×3 (09:07→22:40)
[2020-05-17] MEDS: FLUoxetine HCL 20 MG/5 ML 120ML BTL GT SCH (09:08)
[2020-05-17] MEDS: FLUTICASONE/VILANTEROL 100/25MCG 14 PUFFS/INHALER INH SCH (09:08)
[2020-05-17] MEDS: REMDESIVIR 100 MG in SODIUM CHLORIDE 0.9% 230 ML IV SCH (14:18)
[2020-05-17] MEDS: SODIUM CHLORIDE 0.9% 10ML FLUSH IV SCH (14:19)
--- NOTE | 2020-05-17 16:07 | Hospitalist Progress Note ---
Date of Service May 17, 2020 Assessment & Plan (1) Pneumonia due to COVID-19 virus: COVID 19 infection Acute respiratory failure with hypoxia CXR:Cardiomegaly and emphysema with no acute cardiopulmonary abnormality identified. Chronic parenchymal changes as above. Continue IV remdesivir, dexamethasone as per protocol Continue Nebs Wean off of supplemental oxygen Currently saturating well on room air Lasix PRN (2) Oropharyngeal carcinoma: H/O Recurrent oropharyngeal squamous cell carcinoma S/P Chemo and radiation therapy S/P Tracheotomy and limited right neck dissection with direct laryngoscopy and biopsy on 04/13/2020 H/O Chronic pain due to above Monitor (3) S/P percutaneous endoscopic gastrostomy (PEG) tube placement: S/P percutaneous gastrostomy tube placement Continue tube feeding (4) COPD (chronic obstructive pulmonary disease): H/O COPD H/O Tobacco use disorder No signs of exacerbation (5) Anxiety: (6) Depression: (7) Hypothyroidism: Continue Levothyroxine DVT Px: Lovenox SQ CODE STATUS Full code Admission and Anticipated Discharge Date Admission Date: May 14, 2020 Subjective Patient is seen and examined at bedside Reports minimal cough Eager to get discharged Denies any shortness of breath Also denies chest pain, dizziness, nausea, abdominal pain Saturating 94% on room air Review of Systems Review of Systems: All systems reviewed & are unremarkable except as noted in HPI & below Physical Exam Physical Exam: Physical Exam: Vitals signs as noted above General Appearance:Thin, no apparent distress Head: normocephalic, Atraumatic Eyes: normal inspection, EOMI, PERRL Neck: supple, Trachea midline, +Trach Respiratory/Chest: Decreased breath sounds, CTA, No accessory muscle use Cardiovascular: S1, S2, No murmur Abdomen/GI:Soft, Non tender, Bowel sounds present, +PEG Extremities/Musculoskelatal:normal inspection, no edema Neurologic/Psych:AAOX3, grossly no focal neurological deficits Skin: normal color, warm Results & Data Results & Data ([facility]) Vital Signs (Past 12 Hours) Vital Signs Temp Pulse Pulse Resp BP Pulse Ox Pulse Ox 05/17/20 15:01 36.7 C 64 20 120/72 94 05/17/20 13:23 71 18 95 05/17/20 13:00 93 05/17/20 12:23 36.5 C 75 18 120/76 93 05/17/20 10:00 94 05/17/20 08:26 58 L 18 93 05/17/20 08:00 57 L Laboratory Results BMP 05/17/20 06:28 Creatinine 0.44 L (1) COPD (chronic obstructive pulmonary disease) COPD type: unspecified COPD Qualified Code(s): J44.9 - Chronic obstructive pulmonary disease, unspecified
[2020-05-17] MEDS: ENOXAPARIN INJ 30 MG/0.3 ML SYR SQ SCH (16:35)
[2020-05-17] MEDS: PEPTAMEN 1.5 CAL 1,000 ML BAG GT SCH (20:19)
[2020-05-17] MEDS: traZODone HCL 100 MG TAB PO SCH (22:41)
[2020-05-17] MEDS: OLANZapine ZYDIS 5 MG ORALLY DIS. TAB PO SCH (22:41)
[2020-05-18] MEDS: ALBUTEROL 0.083% NEBU SOLN 3 ML VIAL NEB SCH ×3 (01:20→13:24)
[2020-05-18] MEDS: LORazepam 1 MG TAB PEG PRN (02:06)
[2020-05-18] MEDS: oxyCODONE HCL SOLN 5 MG/5 ML UDC GT PRN ×2 (06:40→12:42)
[2020-05-18] MEDS: LEVOTHYROXINE SODIUM 75 MCG TABLET GT SCH (06:40)
[2020-05-18 07:58] LABS: Hematocrit (blood only) 28.3 % (37-47); Hemoglobin 9.1 g/dL (12.0-16.0); Mean Corpuscular Hemoglobin 32.2 pg (25-34); Mean Corpuscular Hgb Conc 32.2 g/dL (32-36); Platelet Count 400 K/uL (130-400); RDW Coefficient of Variation 15.3 % (11.5-14.5); RDW Standard Deviation 56.2 fL (36.4-46.3); Red Blood Count 2.83 M/uL (4.2-5.4); White Blood Count 4.25 K/uL (4.8-10.8)
[2020-05-18 08:27] LABS: BUN Creatinine Ratio 25.2 (10-20); Calcium 8.5 mg/dl (8.5-10.1); Creatinine Clr Calc Pharmacy 110.2 ml/min; Est GFR (African American) 130.9
[2020-05-18] MEDS ORDERED: POTASSIUM CHLORIDE PWD 20 MEQ PACK GT ONE (09:00)
[2020-05-18] MEDS: FLUTICASONE/VILANTEROL 100/25MCG 14 PUFFS/INHALER INH SCH (10:07)
[2020-05-18] MEDS: PREGABALIN 25 MG CAP PO SCH ×2 (10:08→15:01)
[2020-05-18] MEDS: dexAMETHasone 6 MG in SYRINGE 0 ML IV SCH (10:08)
[2020-05-18] MEDS: LANSOPRAZOLE 15 MG SOLTAB GT SCH (10:08)
[2020-05-18] MEDS: HYDROmorphone HCL 2 MG TAB PO PRN (10:10)
[2020-05-18] MEDS: FLUoxetine HCL 20 MG/5 ML 120ML BTL GT SCH (11:09)
[2020-05-18] MEDS: REMDESIVIR 100 MG in SODIUM CHLORIDE 0.9% 230 ML IV SCH (11:09)
--- NOTE | 2020-05-18 13:25 | Hospitalist Progress Note ---
Date of Service May 18, 2020 Assessment & Plan (1) Pneumonia due to COVID-19 virus: COVID 19 infection Acute respiratory failure with hypoxia CXR:Cardiomegaly and emphysema with no acute cardiopulmonary abnormality identified. Chronic parenchymal changes as above. Completed IV remdesivir course Also received dexamethasone as per protocol Continue Nebs Saturating well on room air Lasix PRN Hypokalemia Normal magnesium levels Replace electrolytes as needed (2) Oropharyngeal carcinoma: H/O Recurrent oropharyngeal squamous cell carcinoma S/P Chemo and radiation therapy S/P Tracheotomy and limited right neck dissection with direct laryngoscopy and biopsy on 04/13/2020 H/O Chronic pain due to above Monitor (3) S/P percutaneous endoscopic gastrostomy (PEG) tube placement: S/P percutaneous gastrostomy tube placement Continue tube feeding (4) COPD (chronic obstructive pulmonary disease): H/O COPD H/O Tobacco use disorder No signs of exacerbation (5) Anxiety: (6) Depression: (7) Hypothyroidism: Continue Levothyroxine DVT Px: Lovenox SQ CODE STATUS Full code Admission and Anticipated Discharge Date Admission Date: May 14, 2020 Subjective Patient is seen and examined at bedside States feeling well Offers no complaints Eager to get discharged Denies cough, Dyspnea, chest pain, dizziness, nausea, abdominal pain Saturating well on room air Review of Systems Review of Systems: All systems reviewed & are unremarkable except as noted in HPI & below Physical Exam Physical Exam: Physical Exam: Vitals signs as noted above General Appearance:Thin, no apparent distress Head: normocephalic, Atraumatic Eyes: normal inspection, EOMI, PERRL Neck: supple, Trachea midline, +Trach Respiratory/Chest: Decreased breath sounds, CTA, No accessory muscle use Cardiovascular: S1, S2, No murmur Abdomen/GI:Soft, Non tender, Bowel sounds present, +PEG Extremities/Musculoskelatal:normal inspection, no edema Neurologic/Psych:AAOX3, grossly no focal neurological deficits Skin: normal color, warm Results & Data Results & Data ([facility]) Vital Signs (Past 12 Hours) Vital Signs Temp Pulse Pulse Resp BP Pulse Ox Pulse Ox 05/18/20 10:00 95 05/18/20 08:40 57 L 05/18/20 08:00 36.1 C L 83 16 135/88 97 05/18/20 07:31 81 18 94 05/18/20 04:00 54 L 16 95 Laboratory Results Short CBC 05/18/20 Range/Units 07:40 WBC 4.25 L (4.8-10.8) K/uL Hgb 9.1 L (12.0-16.0) g/dL Hct 28.3 L (37-47) % Plt Count 400 (130-400) K/uL BMP 05/18/20 07:40 Sodium 137 Potassium 3.0 L Chloride 102 Carbon Dioxide 30 BUN 11 Creatinine 0.42 L Glucose 104 H Calcium 8.5 Liver Function 05/18/20 Range/Units 07:40 AST 26 (15-37) U/L ALT 15 (12-78) U/L (1) COPD (chronic obstructive pulmonary disease) COPD type: unspecified COPD Qualified Code(s): J44.9 - Chronic obstructive pulmonary disease, unspecified
--- NOTE | 2020-05-18 13:32 | Discharge Summary ---
Date of Service May 18, 2020 Admission HPI Per Admitting Provider She is a 59-year-old with significant complicated past medical history of recurrent oropharyngeal squamous cell carcinoma status post chemo and radiation treatment in 2018 and tracheotomy with limited right neck dissection on 04/13/2020, status post percutaneous endoscopic gastrostomy tube, severe COPD, type 2 diabetes, GERD, hypothyroidism and cancer related chronic pain apparently complaining of shortness of breath since yesterday and noted to have fever of 102 F this morning. She has been exposed to her who was diagnosed with COVID-19 about 2 weeks ago and did not receive any treatment as he was not to most symptomatic. Her other family member has also been diagnosed with COVID- 19. She complains to have shortness of breath and cough and feverish feeling during examination in the emergency room but did not have any acute pain, any nausea and/or vomiting. She has been requiring 35% FiO2 to maintain saturation and her x-ray did show severe COPD but no evidence of pneumonia. She was admitted to telemetry unit under Covid isolation and was started with intravenous remdesivir, dexamethasone and convalescent plasma when available. She recently finished a course of azithromycin. And also cephalexin prior to that. Admission Exam Per Admitting Provider Physical Exam Physical Exam: Lying in bed with moderate shortness of breath at rest Constitutional: + acute distress (Due to shortness of breath), + ill appearing, + thin and + malnourished Eyes: PERRL, conjunctivae normal, anicteric sclerae ENMT: Mouth: + tongue abnormality (Macroglossia) Neck: Tracheotomy tube is intact Respiratory: + respiratory distress Auscultation: + diminished lung sounds and + crackles (Minimal bibasilar crackles); no wheezes Cardiovascular: Rate/Rhythm: regular rate, regular rhythm and + tachycardic Heart Sounds: no murmur Extremities: no edema Gastrointestinal (Abdomen): Inspection/Auscultation: normal bowel sounds; abdomen not distended Percussion/Palpation: abdomen soft; abdomen nontender PEG tube in situ Musculoskeletal: No acute arthritis in any joint Neurologic: Alert, awake. Generally weak and moving all limbs equally Lymphatic: no cervical or axillary lymphadenopathy Principal Diagnosis COVID 19 infection Acute respiratory failure with hypoxia Hypokalemia Discharge Data Allergies Allergy/AdvReac Type Severity Reaction Status Date / Time No Known Allergies Allergy Mild NONE Verified 05/14/20 15:02 Consultations 05/14/20 13:12 ED Decision to Admit Stat Procedures Performed CXR:Cardiomegaly and emphysema with no acute cardiopulmonary abnormality identified. Chronic parenchymal changes as above. Hospital Course (1) Pneumonia due to COVID-19 virus: COVID 19 infection Acute respiratory failure with hypoxia CXR:Cardiomegaly and emphysema with no acute cardiopulmonary abnormality identified. Chronic parenchymal changes as above. Completed IV remdesivir course Also received dexamethasone as per protocol Continue Nebs Saturating well on room air Lasix PRN Hypokalemia Normal magnesium levels Replace electrolytes as needed (2) Oropharyngeal carcinoma: H/O Recurrent oropharyngeal squamous cell carcinoma S/P Chemo and radiation therapy S/P Tracheotomy and limited right neck dissection with direct laryngoscopy and biopsy on 04/13/2020 H/O Chronic pain due to above Monitor (3) S/P percutaneous endoscopic gastrostomy (PEG) tube placement: S/P percutaneous gastrostomy tube placement Continue tube feeding (4) COPD (chronic obstructive pulmonary disease): H/O COPD H/O Tobacco use disorder No signs of exacerbation (5) Anxiety: (6) Depression: (7) Hypothyroidism: Continue Levothyroxine DVT Px: Lovenox SQ CODE STATUS Full code Total Time Total Time Spent Total Time Spent (In Minutes): 41 MINUTES Total Time Includes: Examination of the Patient, Discharge Planning, Medication Reconciliation, Communication With Other Providers and Other Discharge Plan Discharge Items Patient Disposition: Home - Home Health Services Reason For Visit: COVID PNEUMONIA Discharge Diagnosis: COVID 19 infection Acute respiratory failure with hypoxia Hypokalemia Activity: Per Instructions section Exercise/Sports: Gradually increase as tolerated Non-emergency contact: Primary Care Provider Call non-emergency contact if: you have any medication questions, your symptoms worsen, your pain is concerning for you and you have a fever Follow-up/Referrals: Lg Govea DO [Primary Care Provider] - (Date & Time 05/22/2020 12:00 PM Provider Lg Govea DO Department [facility] PLEASE NOTE THAT THIS IS A TELEPHONE APPOINTMENT. YOUR PROVIDER WILL CALL YOU AT THE APPOINTMENT TIME. IF YOU HAVE ANY QUESTIONS REGARDING THIS APPOINTMENT, PLEASE CALL ) Diet: Other - See Diet Comment Diet Comment: Tube feeding Ambulatory Orders: Basic Metabolic Panel (Routine) Timeframe: 1 Week Location: Determined by Patient Ordered By: Darrel Jessica Attending Provider Instructions: Follow-up with your primary care physician Dr. Govea on 05/22/2020 12:00 PM as scheduled Get blood test(basic metabolic panel) in 1 week and follow-up with your phys ician for further recommendations on potassium replacement. Seek immediate medical attention if your symptoms reoccur or worsen Home Isolation COVID-19 Instructions The following information about Home Isolation is from the CDC Website: https://www.cdc.gov/coronavirus/2019-ncov/hcp/inhgppfr-fitcqhc-oxggoa.html Stay home except to get medical care People who are mildly ill with COVID-19 are able to isolate at home during their illness. You should restrict activities outside your home, except for getting medical care. Do not go to work, school, or public areas. Avoid using public transportation, ride-sharing, or taxis. Separate yourself from other people and animals in your home People: As much as possible, you should stay in a specific room and away from other people in your home. Also, you should use a separate bathroom, if available. Animals: You should restrict contact with pets and other animals while you are sick with COVID-19, just like you would around other people. Although there have not been reports of pets or other animals becoming sick with COVID-19, it is still recommended that people sick with COVID-19 limit contact with animals until more information is known about the virus. When possible, have another member of your household care for your animals while you are sick. If you are sick with COVID-19, avoid contact with your pet, including petting, snuggling, being kissed or licked, and sharing food. If you must care for your pet or be around animals while you are sick, wash your hands before and after you interact with pets and wear a face mask. Call ahead before visiting your doctor If you have a medical appointment, call the healthcare provider and tell them that you have or may have COVID-19. This will help the healthcare providers office take steps to keep other people from getting infected or exposed. Wear a face mask You should wear a face mask when you are around other people (e.g., sharing a room or vehicle) or pets and before you enter a healthcare providers office. If you are not able to wear a face mask (for example, because it causes trouble breathing), then people who live with you should not stay in the same room with you, or they should wear a face mask if they enter your room. Cover your coughs and sneezes Cover your mouth and nose with a tissue when you cough or sneeze. Throw used tissues in a lined trash can. Immediately wash your hands with soap and water for at least 20 seconds or, if soap and water are not available, clean your hands with an alcohol-based hand papier mache' molder that contains at least 60% alcohol. Clean your hands often Wash your hands often with soap and water for at least 20 seconds, especially after blowing your nose, coughing, or sneezing; going to the bathroom; and before eating or preparing food. If soap and water are not readily available, use an alcohol-based hand papier mache' molder with at least 60% alcohol, covering all surfaces of your hands and rubbing them together until they feel dry. Soap and water are the best option if hands are visibly dirty. Avoid touching your eyes, nose, and mouth with unwashed hands. Avoid sharing personal household items You should not share dishes, drinking glasses, cups, eating utensils, towels, or bedding with other people or pets in your home. After using these items, they should be washed thoroughly with soap and water. Clean all high-touch surfaces everyday High touch surfaces include counters, tabletops, doorknobs, bathroom fixtures, toilets, phones, keyboards, tablets, and bedside tables. Also, clean any surfaces that may have blood, stool, or body fluids on them. Use a household cleaning spray or wipe, according to the label instructions. Labels contain instructions for safe and effective use of the cleaning product including precautions you should take when applying the product, such as wearing gloves and making sure you have good ventilation during use of the product. Monitor your symptoms Seek prompt medical attention if your illness is worsening (e.g., difficulty breathing).Beforeseeking care, call your healthcare provider and tell them that you have, or are being evaluated for, COVID-19. Put on a face mask before you enter the facility. These steps will help the healthcare providers office to keep other people in the office or waiting room from getting infected or exposed. Ask your healthcare provider to call the local or state health department. Persons who are placed under active monitoring or facilitated self- monitoring should follow instructions provided by their local health department or occupational health professionals, as appropriate. When working with your local health department check their available hours. If you have a medical emergency and need to call 911, notify the dispatch personnel that you have, or are being evaluated for COVID-19. If possible, put o n a face mask before emergency medical services arrive. Discontinuing home isolation Patients with confirmed COVID-19 should remain under home isolation precautions until the risk of secondary transmission to others is thought to be low. The decision to discontinue home isolation precautions should be made on a bqhg-gd-oquk basis, in consultation with healthcare providers and state and local health departments. Coronavirus disease 2019 (COVID-19) is a virus that causes a respiratory illness. It is caused by a coronavirus called 2019 novel coronavirus (2019- nCoV). There are many types of coronavirus. Coronaviruses are a very common cause of bronchitis. They may sometimes cause lung infection(pneumonia). Symptoms can range from mild to severe respiratory illness. These viruses are also foundin some animals. COVID-19 was first found in people in [facility], in late 2019. In 2020, several cases of COVID-19 have been confirmed in the [place] Public health officials are working to find the source. How the virus spreads is not yet fully known. It may be spread through droplets of fluid that a person coughs or sneezes into the air. It may be spread if you touch a surface with virus on it, such as a handle or object, and then touch your mouth. What are the symptoms of COVID-19? Some people have no symptoms or mild symptoms. Symptoms may appear 2 to 14 days after contact with the virus. Symptoms can include: Fever Coughing Trouble breathing What are possible complications from COVID-19? In many cases, this virus can cause infection (pneumonia) in both lungs. In some cases, this can cause . How is COVID-19 diagnosed? Your healthcare provider will ask about your symptoms. He or she will also ask about your recent travel and contact with sick people. Testing for the virus is only done through the [facility]. If yourhealthcare provider thinks you may have COVID- 19, he or she will work with your local health department and the CDC on testing. Follow all instructions from your healthcare provider. COVID-19 is diagnosed by: Nasal and throat swab. A cotton-tipped swab is wiped inside your nose or throat. This is done to check for viruses in your nasal mucus. Sputum culture. A small sample of mucus coughed from your lungs (sputum) is collected if you have a cough. It is checked for the virus. How is COVID-19 treated? There is currently no medicine to treat the virus. Treatment is done to help your body while it fights the virus. This is known as supportive care. Supportive care may include: Pain medicine. These include acetaminophen and ibuprofen. They are used to help ease pain and reduce fever. Bed rest. This helps your body fight the illness. For severe illness, you may need to stay in the hospital. Care during severe illness may include: IV (intravenous) fluids.These are given through a vein to help keep your body hydrated. Oxygen. Supplemental oxygen or ventilation with a breathing machine (ventilator) may be given. This is done to keep enough oxygen in your body. Are you at risk for COVID-19? If youve been to a place where people have been sick with this virus, you are at risk for infection. You are at risk if you: Recently traveled to an affected area Had contact with a sick person who recently traveled to this area Had contact with a person who was diagnosed with COVID-19 How can COVID-19 be prevented? There is no vaccine yet. The best prevention is to not have contact with the virus. The CDC advises that people should not travel to areas where there are COVID-19 outbreaks right now for any reason that is not urgent. To help prevent spreading the infection, wash your hands often, or use an alcohol-basedhand papier mache' molder. If you are in an area with COVID-19: Wash your hands often. Or use an alcohol-based hand papier mache' molder often. Only touch your eyes, nose, or mouth with clean hands. Dont have contact with people who are sick. Follow local instructions about being in public. For example, you may be told to not use public transport for a period of time. Stay away from markets that have live or animals. Wash your hands after touching any animals. Don't touch animals that may be sick. Dont share eating or drinking tools with sick people. Dont kiss someone who is sick. Clean surfaces often with disinfectant. If you were in an area with COVID-19 in the last 14 days: Call your healthcare provider. He or she can talk with local health staff to see what action may be needed. Follow all instructions from your provider. Take your temperature every morning and evening for at least 14 days. This is to check for fever. Keep a record of the readings. Keep watch for symptoms of the virus. Tell your provider right away if you have symptoms. If you were in an area with COVID-19 and have a fever or other symptoms: Dont panic. Keep in mind that other illnesses can cause similar symptoms. Stay away from work, school, and public places. Limit physical contact with family members. Don't kiss anyone or share eating or drinking utensils. Clean surfaces you touch with disinfectant. This is to help prevent the virus from spreading. Call your healthcare provider. Explain that you have been exposed to COVID-19 and have symptoms. Do this before going to any hospital. Wait for instructions. Keep in mind that healthcare staff may wear protective equipment such as masks, gowns, gloves, and eye protection. You may be put in a separate room. This is to prevent the possible virus from spreading. Tell the healthcare staff about recent travel. This includes local travel on public transport. Staff may need to find other people you have been in contact with. Follow all instructions the healthcare staff give you. If you have been diagnosed with COVID-19 Follow all instructions from your healthcare provider. Dont leave your home, except to get medical care. Call your healthcare providers office before going. They can prepare and give you instructions. This will help prevent the virus from spreading. Dont go to work, school, or public areas. Dont use public transport or taxis. Stay away from other people in your home. Have them wear face masks around you. Dont share household items or food. Wear a face mask if you can. This includes at home or in a medical facility. Cover your face with a tissue when you cough or sneeze. Throw the tissue away. Wash your hands. Wash your hands often. Caregivers should: Follow all instructions from healthcare staff. Wear a face mask and protective clothing as advised. Wash hands often. Keep track of the sick persons symptoms. Clean surfaces, fabrics, and laundry thoroughly. Keep other people away from the sick person. When to call your healthcare provider Call your healthcare provider: If youve recently traveled and have symptoms If you have been diagnosed with COVID-19 and your symptoms are worse To learn more To find out more about COVID-19, visit the CDC website at www.cdc.gov/coronavirus/2019-ncov/index.html. [employer]. [address] [place] [address]. All rights reserved. This information is not intended as a substitute for professional medical care. Always follow your healthcare professional's instructions. This information has been adapted from [employer] Pending Studies at Discharge: No Stand-Alone Forms: My [facility] [employer], Smoking Cessation Medications and DC Order Prescriptions: New potassium chloride 20 mEq Packet 20 meq feeding tube QAM Qty: 30 RF: 0 Continued fluoxetine 20 mg/5 mL (4 mg/mL) solution 40 mg feeding tube QAM RF: 0 fluoxetine 20 mg/5 mL (4 mg/mL) solution 20 mg feeding tube QPM RF: 0 albuterol sulfate 2.5 mg /3 mL (0.083 %) solution for nebulization 2.5 mg inhalation Q4H PRN (Reason: Shortness Of Breath) RF: 0 azithromycin 250 mg tablet 250 mg feeding tube UD RF: 0 promethazine 6.25 mg/5 mL syrup 6.25 mg feeding tube QID PRN (Reason: cough) RF: 0 ondansetron 8 mg tablet,disintegrating 8 mg PO Q8H PRN (Reason: Nausea) RF: 0 trazodone 100 mg tablet 200 mg feeding tube QPM RF: 0 lorazepam 1 mg Tablet 1 mg feeding tube Q6H PRN (Reason: Anxiety) RF: 0 albuterol sulfate 90 mcg/actuation HFA aerosol inhaler 2 puff INHALATION QID RF: 0 hydromorphone 4 mg tablet 4 mg PO Q6H PRN (Reason: Pain) RF: 0 olanzapine 5 mg tablet,disintegrating 5 mg feeding tube HS RF: 0 lansoprazole 15 mg tablet,disintegrat, delay rel 15 mg feeding tube BID RF: 0 pregabalin 25 mg capsule 25 mg feeding tube TID RF: 0 buprenorphine 10 mcg/hour patch weekly 1 patch topical WK RF: 0 Breo Ellipta 100-25 mcg/dose blister with device 1 ea INHALATION DAILY RF: 0 oxycodone 20 mg/mL concentrate 15 mg feeding tube Q3H PRN (Reason: Breakthrough Pain) RF: 0 levothyroxine 75 mcg tablet 75 mcg PO DAILY RF: 0 Discharge Orders: Discharge Order (Routine); Ordered 05/18/20 Ordered By: Darrel Chisholm Admission Data Admit Date/Time: 05/14/20 13:38 Attending Provider: Darrel Chisholm Admit Provider: Kenny Guillaume Primary Care Provider: Lg Govea Other Providers: Kenny Guillaume ; [facility] Other Interventions: Discharge Summary Assessment (RN) Last Done: 05/18/20 15:09
[2020-05-18] MEDS: SODIUM CHLORIDE 0.9% 10ML FLUSH IV SCH (15:00)
[2020-05-19] MEDS ORDERED: BUPRENORPHINE 5 MCG/HR TDSY TD SCH (08:00)
[2020-05-19] MEDS ORDERED: POTASSIUM CHLORIDE PWD 20 MEQ PACK PO SCH (09:00)
--- NOTE | 2020-05-26 10:10 | Coding Query ---
PRESENT ON ADMISSION QUERY To promote full compliance with coding requirements relating to pateint care, physician participation is requested in all cases of civil drafting technician uncertainty. Please assist us with the question(s) below: Please place an X within the parenthesis (x). The following diagnosis listed in this patient's medical record require physician assistance to determine if they were present on admission (POA) or not. Please advise for each diagnosis whether it was present on admission, not present on admission, or if it was clinically undetermined. 1. ACUTE RESPIRATORY FAILURE WITH HYPOXIA (documentation begins on 05/17/20 Progress Note) (x ) Present On Admission ( ) Not Present On Admission ( ) Clinically Undetermined Thank you Afua Johnson *Definition of the present on admission (POA)-Present on admission is defined as present at the time the order for inpatient admission occurs. Conditions that develop during an outpatient encounter prior to a written order for inpatient admission (including emergency department, observation, or outpatient surgery) are considered present on admission. MTDD
== END 2020-05-18 15:13 | disposition home health service (06) | DRG 177 ==
LOC: ED 10:18 → SUATTDRO 13:38 → 2S 13:38

== ENCOUNTER 2020-07-17 15:34 | Inpatient (IN) ==
[2020-07-17 16:31] LABS: Basophils # (auto) 0.01 K/uL (0-0.2); Basophils % (auto) 0.1 %; Eosinophils # (auto) 0.02 K/uL (0-0.5); Eosinophils % (auto) 0.1 %; Hematocrit (blood only) 27.8 % (37-47); Immature Granulocytes # (auto) 0.05 K/uL (0.00-0.02); Immature Granulocytes % (auto) 0.3 %; Lymphocytes # (auto) 0.62 K/uL (1.2-3.4); Lymphocytes % (auto) 3.6 %; Mean Corpuscular Hgb Conc 32.4 g/dL (32-36); Mean Corpuscular Volume 92.7 fL (80-100); Monocytes # (auto) 0.55 K/uL (0.11-0.59); Monocytes % (auto) 3.2 %; Neutrophils # (auto) 15.85 K/uL (1.4-6.5); Neutrophils % (auto) 92.7 %; Platelet Count 455 K/uL (130-400); RDW Coefficient of Variation 17.7 % (11.5-14.5); RDW Standard Deviation 59.7 fL (36.4-46.3)
[2020-07-17] MEDS ORDERED: PIPERACILL/TAZOBAC CONSULT ACTIVE PRN (16:31)
[2020-07-17] MEDS ORDERED: PIPERACILLIN/TAZOBACTAM 4.5 GM/120 ML BAG IV ONE (16:31)
[2020-07-17 16:48] LABS: Alanine Aminotransferase 21 U/L (12-78); Albumin Level 2.2 gm/dl (3.4-5.0); Aspartate Aminotransferase 36 U/L (15-37); BUN Creatinine Ratio 31.1 (10-20); Blood Urea Nitrogen 19 mg/dl (7-18); Calcium 8.4 mg/dl (8.5-10.1); Carbon Dioxide 34 mmol/L (21-32); Chloride 83 mmol/L (98-107); Est GFR (African American) 115.8 ml/min; Est GFR (Non-African American) 99.9 ml/min; Glucose 134 mg/dl (70-99); Magnesium 1.9 mg/dl (1.8-2.4); Potassium 4.4 mmol/L (3.5-5.1); Sodium 122 mmol/L (136-145)
[2020-07-17 16:51] LABS: Appearance Urine Clear (Clear); Bacteria Urine Automated Negative (Negative); Bilirubin Urine Negative (Negative); Blood Urine 3+ (Negative); Color Urine Yellow; Glucose Urine UA Negative (Negative); Ketones Urine Negative (Negative); Leukocyte Esterase Urine Trace (Negative); Nitrite Urine Negative (Negative); RBC Urine Automated >30 /hpf (0-4); Urobilinogen Urine Negative (Negative); pH Urine 8.5 (4.5-7.5)
[2020-07-17 16:53] LABS: Albumin Globulin Ratio 0.5 (0.9-2); Alkaline Phosphatase 82 U/L (45-117); Bilirubin,Total 0.2 mg/dl (0.2-1); Globulin 4.9 gm/dl (2.5-4.0); Total Protein 7.1 gm/dl (6.4-8.2); Troponin I < 0.015 ng/ml (0-0.045)
[2020-07-17 16:58] LABS: Protein Urine 1+ (Negative)
--- NOTE | 2020-07-17 16:58 | XRay Report ---
XR chest 1V portable CLINICAL HISTORY: Shortness of breath. COMPARISON STUDY: Chest radiograph May 14, 2020. FINDINGS: Intracanalicular electrodes are incidentally noted. Tracheostomy tube is present as well as a left-sided [id number]. Cardiac size is normal. No pneumothorax or pleural effusion is noted. Th ere is no consolidation. There is pulmonary vascular congestion without overt pulmonary edema. IMPRESSION: Pulmonary vascular congestion without overt pulmonary edema. ACT 112: Negative or not required by law. Electronically signed by: Jose Maria Adame M.D. 07/17/2020 4:57 PM
[2020-07-17 17:27] LABS: INR 1.1 (0.9-1.1); Partial Thromboplastin Time 26.9 Seconds (21.0-31.0); Prothrombin Time 10.9 Seconds (9.0-12.0)
[2020-07-17] MEDS ORDERED: OPTIRAY 350 500ml IV ONE (18:00)
--- NOTE | 2020-07-17 18:18 | CT Scan Report ---
CT ANGIOGRAPHY OF THE CHEST, PULMONARY EMBOLUS PROTOCOL CLINICAL HISTORY: Dyspnea COMPARISON STUDY: Chest CT July 12, 2017. Chest radiograph performed earlier today. TECHNIQUE: Following IV administration of 110 mL of Optiray, helical axial images of the chest were o btained utilizing the pulmonary embolus protocol. Maximal intensity projections and sagittal and cor onal reformats were viewed on an independent 3D workstation. IV contrast was administered without co mplication. Automated exposure control was utilized for the study. A dose lowering technique was ut ilized adhering to the principles of ALARA. CT DOSE: 1082.41 mGy.cm FINDINGS: No pulmonary emboli are identified. There is no thoracic aortic dissection. A left interna l jugular Cmbcva-g-Pxgx is in place. Size of the heart is normal. There is no pericardial effusion. N o pneumothorax or pleural effusion is noted. There are numerous calcified granulomas within the lungs . There are several mildly enlarged right hilar lymph nodes. There are several prominent mediastinal lymph nodes. Note is made of moderate right lower lobe consolidation. Mild left lower lobe airspace o pacities are present. There is bronchial wall thickening and mucus plugging, most throughout within t he right lower lobe. Secretions within right lower lobe bronchi are noted. No suspicious lesions with in the bony thorax are noted. Intracanalicular electrodes are partially imaged. Tracheostomy tube is noted. IMPRESSION: 1. No pulmonary emboli identified. 2. Moderate right lower lobe consolidation. Mild left lower lobe airspace opacity. The findings favor pneumonia or aspiration pneumonitis. Secretions and bronchial wall thickening, most pronounced withi n the right lower lobe. 3. Mildly enlarged right hilar lymph nodes. These are likely reactive. A follow up chest CT in 3 avi hs to ensure resolution is recommended. 4. Mild emphysema. ACT 112: Negative or not required by law. Electronically signed by: Jose Maria Adame M.D. 07/17/2020 6:17 PM
[2020-07-17] MEDS ORDERED: SODIUM CHLORIDE 0.9% 1000ML 1,000 ML IV STA (19:36)
[2020-07-17] MEDS ORDERED: SODIUM CHLORIDE 0.9% 1000ML 500 ML IV ONE ×2 (19:36→20:18)
--- NOTE | 2020-07-17 21:54 | History & Physical Report ---
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 Increased sputum production and SOB x 5 days, in setting of prednisone use for facial swelling Leukocytosis of 17.1, lactate WNL, procal pending Chest CTA without evidence of PE. Moderate right lower lobe consolidation. Mild left lower lobe airspace opacity. The findings favor pneumonia or aspiration pneumonitis. Secretions and bronchial wall thickening, most pronounced within RLL Trach and blood cultures pending Started on empiric Zosyn, considering adding vanco Suctioning per RT Supplemental O2 as needed, Duonebs Q4HR (2) Oropharyngeal carcinoma: Diagnosed in 2017 and in remission until February 2020 Last Keytruda dose 07/11/[address] Tyler of [facility] heme onc, also receiving care at [facility] Continue pain control (3) Tracheostomy in place: Trach care per respiratory (4) Hyponatremia: Sodium of 122, baseline ~ mid-130s Hypochloremia as well, appears dehydrated Serum osm and urine osm pending (5) Bilateral lower extremity edema: L>R swelling lower extremities, worsening since 07/11/20 BLE venous dopplers pending to r/o DVT (6) COPD (chronic obstructive pulmonary disease): Continue home inhalers, supplemental O2 as needed (7) S/P percutaneous endoscopic gastrostomy (PEG) tube placement: Ensure Plus oral liquid through PEG tube Nutrition consult placed NPO (8) Depression: (9) Anxiety: Continue Prozac, Ativan, olanzapine HS (10) Tobacco use disorder: Nicotine patch ordered (11) Wound, open, neck: Open wound under trach opening Following with wound care - gentamycin ointment mixed with Santyl and applied daily Wound care nurse consulted DVT Ppx: SQ lovenox Code status: FULL PCP: Jeferson Dispo: Admitted to PCU. Patient seen in collaboration with Dr. Ramírez. Please see addendum. 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 Patient initially diagnosed with oropharyngeal cancer in 2017 and was then in remission for a time until cancer recurred in Feb 2020. Underwent laryngectomy total with radial neck dissection by Dr. Goodman at [facility] in April 2020. Tracheostomy placed at that time as well. Has received 2 Keytruda treatments with the last 1 on 07/11/2020. Since then, patient has had increased sputum production from trach that is thick and yellow with an odor. has been usually suctions twice daily but is up to Q3H as of this morning. also notices patient is weaker than usual, able to get up and use restroom but not do anything around the house. Also notices rattling sound at site of trach. Has been on prednisone for facial swelling. Dose decreased to 10mg daily as of today. Patient endorsing pain in throat, shortness of breath and fatigue. Denies any fever, chills, headache, lightheadedness, chest pain, nausea, vomiting, abdominal pain, dysuria, diarrhea constipation. Receives nutrition through PEG tube. Does not swallow anything by mouth. Does swish around water but then spits out. Receiving cancer care from medical oncology Dr. Tyler in [place] as well as a second opinion at the [facility]. Due for another appointment at [facility] on Jul 25. Allergies Allergy/AdvReac Type Severity Reaction Status Date / Time No Known Allergies Allergy Mild NONE Verified 07/17/20 17:13 Home Medications Medication Instructions Recorded Confirmed Type Breo Ellipta 1 ea INHALATION DAILY 05/14/20 07/17/20 History albuterol sulfate 2 puff INHALATION QID 05/14/20 07/17/20 History albuterol sulfate 2.5 mg INHALATION Q4H PRN 05/14/20 07/17/20 History fluoxetine 20 mg FEEDING TUBE QPM 05/14/20 07/17/20 History fluoxetine 40 mg FEEDING TUBE QAM 05/14/20 07/17/20 History lorazepam 1 mg FEEDING TUBE Q6H PRN 05/14/20 07/17/20 History olanzapine 5 mg FEEDING TUBE HS 05/14/20 07/17/20 History ondansetron 8 mg PO Q8H PRN 05/14/20 07/17/20 History oxycodone 15 mg FEEDING TUBE Q3H PRN 05/14/20 07/17/20 History pregabalin 25 mg FEEDING TUBE BID 05/14/20 07/17/20 History promethazine 6.25 mg FEEDING TUBE QID PRN 05/14/20 07/17/20 History trazodone 200 mg FEEDING TUBE QPM 05/14/20 07/17/20 History gentamicin 0.1 % topical ointment 1 applic TOPICAL DAILY 14 Days #30 06/11/20 07/17/20 Rx g collagenase clostridium histo. 250 1 applic TOPICAL DAILY #30 g 07/07/20 07/17/20 Rx unit/gram topical ointment famotidine 40 mg FEEDING TUBE DAILY 07/17/20 07/17/20 History fexofenadine 180 mg FEEDING TUBE DAILY 07/17/20 07/17/20 History levothyroxine 100 mcg PO DAILY 07/17/20 07/17/20 History menthol-zinc oxide [Calmoseptine] 1 applic TOPICAL BID PRN 07/17/20 07/17/20 History naloxone [Narcan] spray INTRANASAL UD 07/17/20 History nicotine 1 patch TRANSDERMAL DAILY 07/17/20 07/17/20 History prednisone 10 mg FEEDING TUBE DAILY 07/17/20 07/17/20 History pregabalin 50 mg FEEDING TUBE HS 07/17/20 07/17/20 History Past Med/Surg History Medical History (Updated 07/17/20 @ 21:50 by Erica Dowling PA-C) Anxiety Chronic cough 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 She will keep looking for it and what type her device is. S/P percutaneous endoscopic gastrostomy (PEG) tube placement Family History Other Heart disease Lung cancer Social History Smoking Status: Former smoker Tobacco Type: Cigarettes and E-cigarettes / Vaping Age Started Using Tobacco: 15; Age Quit Using Tobacco: 59; Cigarettes Per Day: 1ppd; Second Hand Exposure: No; Hx Alcohol Use: Yes Hx Substance Use: No Preferred Language: Belarusian Communication Ability: Effective Visual Impairment: No Limitations Hearing Ability: Normal Quality Controller Required: No Beliefs That Will Affect Care: None Current Living Situation: Spouse and Family Feels Safe at Home: Yes Review of Systems Review of Systems: At least ten systems reviewed and negative except as noted in the HPI. Physical Exam Physical Exam: General Appearance: vitals as above, thin, ill appearing, sitting up in bed Head: normocephalic, atraumatic Eyes: normal inspection, PERRL, conjunctivae normal, anicteric sclerae ENT: external ear and nose normal, oropharynx normal Neck: Trach in place draining yellow purulent sputum, foul-smelling Respiratory: Increased respiratory effort, diffuse coarse lung sounds with rhonchi, poor air movement. No accessory muscle use Cardiovascular: regular rate, rhythm, no murmur, normal peripheral pulses, 2+LLE edema, trace RLE edema Chest: normal inspection of chest Abdomen/GI: normal bowel sounds, soft, nontender, no hepatosplenomegaly. + PEG tube Extremities/Musculoskeletal: no cyanosis or clubbing, extremities motor strength 5/5 Neurologic: PERRL, EOMI, accommodation nl, no face palsy, no dysarthria, CN's II-XI intact bilaterally and moves all extremities Psychiatric: A+Ox3, euthymic affect Skin: no rashes, normal color, warm/dry. + wound underlying trach site with bandage in place Results & Data Results & Data ([facility]) Vital Signs (Past 12 Hours) Vital Signs Temp Pulse Resp BP Pulse Ox 07/17/20 20:00 76 24 83/52 L 95 07/17/20 19:50 63 12 93 07/17/20 19:40 67 15 92 07/17/20 19:34 70 22 84/56 L 93 07/17/20 19:30 66 12 91 07/17/20 19:20 68 16 92 07/17/20 19:10 71 13 95 07/17/20 19:00 75 16 92 07/17/20 18:50 72 17 96 07/17/20 18:40 73 17 95 07/17/20 17:40 72 19 94 07/17/20 17:31 73 13 93 07/17/20 17:30 73 17 89/63 L 94 07/17/20 17:20 76 15 07/17/20 17:10 79 15 89 L 07/17/20 17:00 81 12 110/76 90 07/17/20 16:50 73 13 93 07/17/20 16:40 82 15 94 07/17/20 16:31 81 16 95 07/17/20 16:30 14 109/69 94 07/17/20 16:24 18 93 07/17/20 16:20 78 21 91 07/17/20 16:16 81 18 91 07/17/20 16:12 82 15 100/64 07/17/20 16:10 77 20 93 07/17/20 15:35 36.6 C 87 22 89 L Laboratory Results Short CBC 07/17/20 Range/Units 16:09 WBC 17.10 H (4.8-10.8) K/uL Hgb 9.0 L (12.0-16.0) g/dL Hct 27.8 L (37-47) % Plt Count 455 H (130-400) K/uL BMP 07/17/20 16:09 Sodium 122 L Potassium 4.4 Chloride 83 L Carbon Dioxide 34 H BUN 19 H Creatinine 0.61 Glucose 134 H Calcium 8.4 L Cardiac Enzymes 07/17/20 Range/Units 16:09 Troponin I < 0.015 (0-0.045) ng/ml Liver Function 07/17/20 Range/Units 16:09 Total Bilirubin 0.2 (0.2-1) mg/dl AST 36 (15-37) U/L ALT 21 (12-78) U/L Alkaline Phosphatase 82 (45-117) U/L Albumin 2.2 L (3.4-5.0) gm/dl Urine 07/17/20 Range/Units 16:09 Urine Color Yellow Urine Appearance Clear (Clear) Urine pH 8.5 H (4.5-7.5) Ur Specific [place] 1.010 (1.000-1.030) Urine Protein 1+ H (Negative) Urine Glucose (UA) Negative (Negative) Diagnostic Findings Chest X-Ray 07/17/20 15:43 XR chest 1V portable CLINICAL HISTORY: Shortness of breath. COMPARISON STUDY: Chest radiograph May 14, 2020. FINDINGS: Intracanalicular electrodes are incidentally noted. Tracheostomy tube is present as well as a left-sided [id number]. Cardiac size is normal. No pneumothorax or pleural effusion is noted. There is no consolidation. There is pulmonary vascular congestion without overt pulmonary edema. IMPRESSION: Pulmonary vascular congestion without overt pulmonary edema. ACT 112: Negative or not required by law. Electronically signed by: Jose Maria Adame M.D. 07/17/2020 4:57 PM Chest CTA 07/17/20 16:10 CT ANGIOGRAPHY OF THE CHEST, PULMONARY EMBOLUS PROTOCOL CLINICAL HISTORY: Dyspnea COMPARISON STUDY: Chest CT July 12, 2017. Chest radiograph performed earlier today. TECHNIQUE: Following IV administration of 110 mL of Optiray, helical axial images of the chest were obtained utilizing the pulmonary embolus protocol. Maximal intensity projections and sagittal and coronal reformats were viewed on an independent 3D workstation. IV contrast was administered without complication. Automated exposure control was utilized for the study. A dose lowering technique was utilized adhering to the principles of ALARA. CT DOSE: 1082.41 mGy.cm FINDINGS: No pulmonary emboli are identified. There is no thoracic aortic dissection. A left internal jugular [id number] is in place. Size of the heart is normal. There is no pericardial effusion. No pneumothorax or pleural effusion is noted. There are numerous calcified granulomas within the lungs. There are several mildly enlarged right hilar lymph nodes. There are several prominent mediastinal lymph nodes. Note is made of moderate right lower lobe consolidation. Mild left lower lobe airspace opacities are present. There is bronchial wall thickening and mucus plugging, most throughout within the right lower lobe. Secretions within right lower lobe bronchi are noted. No suspicious lesions within the bony thorax are noted. Intracanalicular electrodes are partially imaged. Tracheostomy tube is noted. IMPRESSION: 1. No pulmonary emboli identified. 2. Moderate right lower lobe consolidation. Mild left lower lobe airspace opacity. The findings favor pneumonia or aspiration pneumonitis. Secretions and bronchial wall thickening, most pronounced within the right lower lobe. 3. Mildly enlarged right hilar lymph nodes. These are likely reactive. A follow up chest CT in 3 months to ensure resolution is recommended. 4. Mild emphysema. ACT 112: Negative or not required by law. Electronically signed by: Jose Maria Adame M.D. 07/17/2020 6:17 PM Code Status & VTE Plan VTE Prophylaxis Plan VTE Prophylaxis will be ordered: Yes Supervising Physician Co-Signing Physician Notes I have seen and examined the patient and have discussed the case with the provider above. I agree with the assessment and plan as stated with the following exceptions. 59 yo immunocompromised smoker with recent laryngectomy for cancer s/p tracheostomy placement. Also with recent covid infection in early May 2020. She presents with pneumonia, expectorating a green phlegm from her trach with increased secretions, and overal decline clinically including decreased activity and malaise. Denies fevers or chills. Aside from Keytruda she is on chronic steroids for suppression of a right facial swelling that was a post-operative complication. Na is 122 and she appears dehydrated pekid. Physical reveals an ill-appearing female in no acute respiratory distress. She is bundled under at least 10 blankets. Pulmonary auscultation reveals coarse rhonchi throughout. Heart exam reveals S1/2 and no m/g/r, reg rate and rhythm, there is no peripheral edema present. Will change ENT consultation to pulmonary, and will add Vancomycin in immune compromised state. DO Darrell (1) COPD (chronic obstructive pulmonary disease) COPD type: unspecified COPD Qualified Code(s): J44.9 - Chronic obstructive pulmonary disease, unspecified
--- NOTE | 2020-07-17 22:40 | Emergency Department Note ---
History of Present Illness General Chief complaint: Shortness of Breath/Dyspnea Stated complaint: SOB, CANT BREATHE Time Seen by Provider: 07/17/20 16:07 Source: patient, family () and RN notes reviewed Mode of arrival: ambulatory Limitations: no limitations History of Present Illness Provider complaint: Shortness of breath, throat cancer, trach This patient is a 59-year-old female who presents emergency department with complaints of increasing shortness of breath and weakness. Patient's states she is really received Keytruda for metastatic throat cancer. Since that time the patient has had some increasing coughing and difficulty clearing her secretions. Her states he has been suctioning her trach. She denies any chest pain. Her states she has been able to ambulate to the bathroom but has been doing much less activity than her baseline just 4 to 5 days ago. This is her second treatment with the immune therapy however the first time around she fared much better. She has had no fever, cough or vomiting. Patient is fed through a PEG tube. She does get water by mouth but is supposed to spit it out. Home Medications Medication Instructions Recorded Confirmed Type Breo Ellipta 1 ea INHALATION DAILY 05/14/20 07/17/20 History albuterol sulfate 2 puff INHALATION QID 05/14/20 07/17/20 History albuterol sulfate 2.5 mg INHALATION Q4H PRN 05/14/20 07/17/20 History fluoxetine 20 mg FEEDING TUBE QPM 05/14/20 07/17/20 History fluoxetine 40 mg FEEDING TUBE QAM 05/14/20 07/17/20 History lorazepam 1 mg FEEDING TUBE Q6H PRN 05/14/20 07/17/20 History olanzapine 5 mg FEEDING TUBE HS 05/14/20 07/17/20 History ondansetron 8 mg PO Q8H PRN 05/14/20 07/17/20 History oxycodone 15 mg FEEDING TUBE Q3H PRN 05/14/20 07/17/20 History pregabalin 25 mg FEEDING TUBE BID 05/14/20 07/17/20 History promethazine 6.25 mg FEEDING TUBE QID PRN 05/14/20 07/17/20 History trazodone 200 mg FEEDING TUBE QPM 05/14/20 07/17/20 History gentamicin 0.1 % topical ointment 1 applic TOPICAL DAILY 14 Days #30 06/11/20 07/17/20 Rx g collagenase clostridium histo. 250 1 applic TOPICAL DAILY #30 g 07/07/20 07/17/20 Rx unit/gram topical ointment Calmoseptine 1 applic TOPICAL BID PRN 07/17/20 07/17/20 History Narcan spray INTRANASAL UD 07/17/20 History famotidine 40 mg FEEDING TUBE DAILY 07/17/20 07/17/20 History fexofenadine 180 mg FEEDING TUBE DAILY 07/17/20 07/17/20 History levothyroxine 100 mcg PO DAILY 07/17/20 07/17/20 History nicotine 1 patch TRANSDERMAL DAILY 07/17/20 07/17/20 History prednisone 10 mg FEEDING TUBE DAILY 07/17/20 07/17/20 History pregabalin 50 mg FEEDING TUBE HS 07/17/20 07/17/20 History guaifenesin 200 mg PEG Q6 #473 ml 07/20/20 Rx levofloxacin 750 mg PO DAILY 14 Days #14 tab 07/20/20 Rx Allergies Allergy/AdvReac Type Severity Reaction Status Date / Time No Known Allergies Allergy Mild NONE Verified 07/17/20 17:13 Past Med/Surg History Medical History Anxiety Chronic cough 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 She will keep looking for it and what type her device is. S/P percutaneous endoscopic gastrostomy (PEG) tube placement Family History Other Heart disease Lung cancer Social History Smoking Status: Current every day smoker Tobacco Type: Cigarettes and E-cigarettes / Vaping Age Started Using Tobacco: 15; Age Quit Using Tobacco: 59; Cigarettes Per Day: 1ppd; Second Hand Exposure: No; Hx Alcohol Use: No Hx Substance Use: No Preferred Language: Czech Communication Ability: Effective Visual Impairment: No Limitations Hearing Ability: Normal Storage Facility Rental Clerk Required: No Beliefs That Will Affect Care: None Current Living Situation: Spouse Feels Safe at Home: Yes Assistive Devices: Cane and Oxygen - Continuous Review of Systems See HPI for pertinent positives & negatives. and A total of 10 systems reviewed and were otherwise negative Physical Exam Vital Signs Vital Signs - 24 hr 07/17/20 15:35 07/17/20 16:10 07/17/20 16:12 Temperature 36.6 C Temperature Source Temporal Artery Scan Pulse Rate 87 77 82 Pulse Rate from SpO2 Sensor Pulse Rhythm Regular Respiratory Rate 22 20 15 Respiratory Effort / Characteristics Spontaneous Respiratory Pattern Regular Blood Pressure 100/64 Blood Pressure Mean 76 Pulse Oximetry 89 L 93 Oxygen Delivery Method Room Air Room Air Fraction of Inspired Oxygen Sepsis Recent Fever Within 48 Hours No Sepsis New/Unexplained Change in Mental Status No Sepsis Action Taken by Nursing No Action Required 07/17/20 16:16 07/17/20 16:20 07/17/20 16:24 Temperature Temperature Source Pulse Rate 81 78 Pulse Rate from SpO2 Sensor 81 78 Pulse Rhythm Respiratory Rate 18 21 18 Respiratory Effort / Characteristics Spontaneous Respiratory Pattern Blood Pressure Blood Pressure Mean Pulse Oximetry 91 91 93 Oxygen Delivery Method Room Air Fraction of Inspired Oxygen Sepsis Recent Fever Within 48 Hours Sepsis New/Unexplained Change in Mental Status Sepsis Action Taken by Nursing 07/17/20 16:30 07/17/20 16:31 07/17/20 16:40 Temperature Temperature Source Pulse Rate 81 82 Pulse Rate from SpO2 Sensor 82 81 80 Pulse Rhythm Respiratory Rate 14 16 15 Respiratory Effort / Characteristics Respiratory Pattern Blood Pressure 109/69 Blood Pressure Mean 82 Pulse Oximetry 94 95 94 Oxygen Delivery Method Fraction of Inspired Oxygen Sepsis Recent Fever Within 48 Hours Sepsis New/Unexplained Change in Mental Status Sepsis Action Taken by Nursing 07/17/20 16:50 07/17/20 17:00 07/17/20 17:10 Temperature Temperature Source Pulse Rate 73 81 79 Pulse Rate from SpO2 Sensor 73 81 79 Pulse Rhythm Respiratory Rate 13 12 15 Respiratory Effort / Characteristics Respiratory Pattern Blood Pressure 110/76 Blood Pressure Mean 87 Pulse Oximetry 93 90 89 L Oxygen Delivery Method Fraction of Inspired Oxygen Sepsis Recent Fever Within 48 Hours Sepsis New/Unexplained Change in Mental Status Sepsis Action Taken by Nursing 07/17/20 17:20 07/17/20 17:30 07/17/20 17:31 Temperature Temperature Source Pulse Rate 76 73 73 Pulse Rate from SpO2 Sensor 73 72 Pulse Rhythm Respiratory Rate 15 17 13 Respiratory Effort / Characteristics Respiratory Pattern Blood Pressure 89/63 L Blood Pressure Mean 71 Pulse Oximetry 94 93 Oxygen Delivery Method Fraction of Inspired Oxygen Sepsis Recent Fever Within 48 Hours Sepsis New/Unexplained Change in Mental Status Sepsis Action Taken by Nursing 07/17/20 17:40 07/17/20 18:30 07/17/20 18:40 Temperature Temperature Source Pulse Rate 72 73 Pulse Rate from SpO2 Sensor 72 76 74 Pulse Rhythm Respiratory Rate 19 17 Respiratory Effort / Characteristics Respiratory Pattern Blood Pressure Blood Pressure Mean Pulse Oximetry 94 95 Oxygen Delivery Method Fraction of Inspired Oxygen Sepsis Recent Fever Within 48 Hours Sepsis New/Unexplained Change in Mental Status Sepsis Action Taken by Nursing 07/17/20 18:50 07/17/20 19:00 07/17/20 19:10 Temperature Temperature Source Pulse Rate 72 75 71 Pulse Rate from SpO2 Sensor 72 75 70 Pulse Rhythm Respiratory Rate 17 16 13 Respiratory Effort / Characteristics Respiratory Pattern Blood Pressure Blood Pressure Mean Pulse Oximetry 96 92 95 Oxygen Delivery Method Fraction of Inspired Oxygen 28 Sepsis Recent Fever Within 48 Hours Sepsis New/Unexplained Change in Mental Status Sepsis Action Taken by Nursing 07/17/20 19:20 07/17/20 19:30 07/17/20 19:34 Temperature Temperature Source Pulse Rate 68 66 70 Pulse Rate from SpO2 Sensor 68 67 69 Pulse Rhythm Respiratory Rate 16 12 22 Respiratory Effort / Characteristics Respiratory Pattern Blood Pressure 84/56 L Blood Pressure Mean 65 Pulse Oximetry 92 91 93 Oxygen Delivery Method Fraction of Inspired Oxygen Sepsis Recent Fever Within 48 Hours Sepsis New/Unexplained Change in Mental Status Sepsis Action Taken by Nursing 07/17/20 19:40 07/17/20 19:50 07/17/20 20:00 Temperature Temperature Source Pulse Rate 67 63 76 Pulse Rate from SpO2 Sensor 68 64 75 Pulse Rhythm Respiratory Rate 15 12 24 Respiratory Effort / Characteristics Respiratory Pattern Blood Pressure 83/52 L Blood Pressure Mean 62 Pulse Oximetry 92 93 95 Oxygen Delivery Method Room Air Fraction of Inspired Oxygen Sepsis Recent Fever Within 48 Hours Sepsis New/Unexplained Change in Mental Status Sepsis Action Taken by Nursing 07/17/20 20:01 07/17/20 20:10 07/17/20 20:20 Temperature Temperature Source Pulse Rate 73 71 67 Pulse Rate from SpO2 Sensor 74 70 67 Pulse Rhythm Respiratory Rate 13 21 13 Respiratory Effort / Characteristics Respiratory Pattern Blood Pressure Blood Pressure Mean Pulse Oximetry 94 94 94 Oxygen Delivery Method Fraction of Inspired Oxygen Sepsis Recent Fever Within 48 Hours Sepsis New/Unexplained Change in Mental Status Sepsis Action Taken by Nursing 07/17/20 20:30 07/17/20 20:31 07/17/20 20:40 Temperature Temperature Source Pulse Rate 64 64 64 Pulse Rate from SpO2 Sensor 64 64 63 Pulse Rhythm Respiratory Rate 13 15 14 Respiratory Effort / Characteristics Respiratory Pattern Blood Pressure 99/51 L Blood Pressure Mean 67 Pulse Oximetry 92 90 92 Oxygen Delivery Method Fraction of Inspired Oxygen Sepsis Recent Fever Within 48 Hours Sepsis New/Unexplained Change in Mental Status Sepsis Action Taken by Nursing 07/17/20 20:50 07/17/20 21:00 07/17/20 21:24 Temperature Temperature Source Pulse Rate 66 Pulse Rate from SpO2 Sensor 73 65 65 Pulse Rhythm Respiratory Rate 18 Respiratory Effort / Characteristics Respiratory Pattern Blood Pressure Blood Pressure Mean Pulse Oximetry 94 94 Oxygen Delivery Method Fraction of Inspired Oxygen Sepsis Recent Fever Within 48 Hours Sepsis New/Unexplained Change in Mental Status Sepsis Action Taken by Nursing 07/17/20 21:30 07/17/20 21:40 07/17/20 21:55 Temperature Temperature Source Pulse Rate 62 62 78 Pulse Rate from SpO2 Sensor 62 61 78 Pulse Rhythm Respiratory Rate 13 9 L 10 L Respiratory Effort / Characteristics Respiratory Pattern Blood Pressure Blood Pressure Mean Pulse Oximetry 88 L 94 Oxygen Delivery Method Room Air Trach Collar Fraction of Inspired Oxygen 28 Sepsis Recent Fever Within 48 Hours Sepsis New/Unexplained Change in Mental Status Sepsis Action Taken by Nursing 07/17/20 22:00 07/17/20 22:10 07/17/20 22:16 Temperature Temperature Source Pulse Rate 63 63 61 Pulse Rate from SpO2 Sensor 62 63 61 Pulse Rhythm Respiratory Rate 12 16 17 Respiratory Effort / Characteristics Respiratory Pattern Blood Pressure 100/70 Blood Pressure Mean 80 Pulse Oximetry 97 96 95 Oxygen Delivery Method Fraction of Inspired Oxygen Sepsis Recent Fever Within 48 Hours Sepsis New/Unexplained Change in Mental Status Sepsis Action Taken by Nursing Vital signs reviewed. General: Chronically ill-appearing 59-year-old female, in no significant distress. HEENT: No scleral icterus, PERRLA, neck supple. Trach with secretions post surgical change to the mandible/neck Cardiovascular: Regular rate and rhythm, no extra sounds. Pulmonary: Clear to auscultation bilaterally, normal work of breathing. Abdomen: Soft, nontender, nondistended, positive bowel sounds. Aristeo button Musculoskeletal: Atraumatic, no peripheral edema. Neurologic: Patient awake alert and oriented x 3, minimally verbal due to trach but able to speak in one-word sentences. Ambulates to the bathroom without difficulty Skin: Warm, dry, no rash Course Administered Medications Discontinued Medications Albuterol (Albuterol 0.083% Nebu Soln 3 Ml Vial) 2.5 mg INH Q4R PRN PRN Reason: Shortness Of Breath Stop: 08/17/20 01:50 Last Admin: 07/20/20 07:24 Dose: 2.5 mg Documented by: [id number] Admin: 07/19/20 19:27 Dose: 2.5 mg Documented by: [id number] Admin: 07/19/20 15:38 Dose: 2.5 mg Documented by: [id number] Admin: 07/19/20 11:08 Dose: 2.5 mg Documented by: [id number] Admin: 07/19/20 07:07 Dose: 2.5 mg Documented by: [id number] Albuterol (Albuterol Hfa 8 Gm Inhaler) 2 puffs INH QIDR ANA ROSA Stop: 08/17/20 06:59 Last Admin: 07/20/20 07:26 Dose: Not Given Documented by: [id number] Admin: 07/19/20 19:29 Dose: Not Given Documented by: [id number] Admin: 07/19/20 15:39 Dose: Not Given Documented by: [id number] Admin: 07/19/20 11:11 Dose: 2 puffs Documented by: [id number] Admin: 07/19/20 08:18 Dose: 2 puffs Documented by: [id number] Admin: 07/18/20 19:23 Dose: 2 puffs Documented by: [id number] Admin: 07/18/20 15:17 Dose: 2 puffs Documented by: [id number] Admin: 07/18/20 11:00 Dose: 2 puffs Documented by: [id number] Admin: 07/18/20 07:24 Dose: 2 puffs Documented by: [id number] Albuterol (Albuterol 0.083% Nebu Soln 3 Ml Vial) 2.5 mg INH QIDR ANA ROSA Stop: 08/19/20 10:59 Last Admin: 07/20/20 11:17 Dose: 2.5 mg Documented by: [id number] Collagenase (Collagenase Oint 30 Gm Tube) 1 appln TOP DAILY [facility] Stop: 08/17/20 08:59 Last Admin: 07/20/20 08:27 Dose: 1 appln Documented by: [id number] Admin: 07/19/20 08:16 Dose: 1 appln Documented by: [id number] Admin: 07/18/20 07:44 Dose: 1 appln Documented by: [id number] Enoxaparin Sodium (Enoxaparin Inj 40 Mg/0.4 Ml Syr) 40 mg SQ Q24H ANA ROSA Stop: 08/17/20 03:59 Last Admin: 07/20/20 02:12 Dose: 40 mg Documented by: [id number] Admin: 07/19/20 03:56 Dose: 40 mg Documented by: [id number] Admin: 07/18/20 04:01 Dose: 40 mg Documented by: [id number] Enoxaparin Sodium (Enoxaparin Inj 40 Mg/0.4 Ml Syr) 40 mg SQ NOW STA Stop: 07/18/20 00:52 Last Admin: 07/18/20 04:02 Dose: Not Given Documented by: [id number] Enteral Nutritional Formula (Peptamen 1.5 Sim 1,000 Ml Bag) 1,000 ml GT UD [facility]; Protocol Stop: 08/17/20 10:14 Last Admin: 07/19/20 17:42 Dose: 1,000 ml Documented by: [id number] Admin: 07/18/20 12:57 Dose: 1,000 ml Documented by: [id number] Famotidine (Famotidine 40 Mg Tablet) 40 mg GT DAILY ANA ROSA Stop: 08/17/20 08:59 Last Admin: 07/20/20 08:26 Dose: 40 mg Documented by: [id number] Admin: 07/19/20 08:18 Dose: 40 mg Documented by: [id number] Admin: 07/18/20 07:41 Dose: 40 mg Documented by: [id number] Fexofenadine HCl (Fexofenadine Hcl 180 Mg Tab) 180 mg PO QAM ANA ROSA Stop: 08/19/20 08:59 Last Admin: 07/20/20 08:26 Dose: 180 mg Documented by: [id number] Fluoxetine HCl (Fluoxetine Hcl 20 Mg/5 Ml Udp) 40 mg GT QAM [facility] Stop: 08/17/20 08:59 Last Admin: 07/18/20 07:41 Dose: 40 mg Documented by: [id number] Fluoxetine HCl (Fluoxetine Hcl 20 Mg/5 Ml Udp) 40 mg GT QAM ANA ROSA Stop: 08/18/20 08:59 Last Admin: 07/20/20 08:26 Dose: 40 mg Documented by: [id number] Admin: 07/19/20 08:17 Dose: 40 mg Documented by: [id number] Fluoxetine HCl (Fluoxetine Hcl 20 Mg/5 Ml Udp) 20 mg PO QPM ANA ROSA Stop: 08/17/20 20:59 Last Admin: 07/19/20 21:26 Dose: 20 mg Documented by: [id number] Admin: 07/18/20 21:55 Dose: 20 mg Documented by: [id number] Fluticasone/Vilanterol (Fluticasone/Vilanterol 100/25mcg 14 Puffs/Inhaler) 1 puffs INH DAILY ANA ROSA Stop: 08/17/20 08:59 Last Admin: 07/20/20 08:27 Dose: 1 puffs Documented by: [id number] Admin: 07/19/20 08:18 Dose: 1 puffs Documented by: [id number] Admin: 07/18/20 07:43 Dose: 1 puffs Documented by: [id number] Guaifenesin (Guaifenesin Sugar Free 200 Mg/10 Ml Udc) 600 mg PO Q12 ANA ROSA Stop: 08/17/20 08:59 Last Admin: 07/18/20 07:42 Dose: 600 mg Documented by: [id number] Guaifenesin (Guaifenesin Sugar Free 200 Mg/10 Ml Udc) 200 mg PEG BID ANA ROSA Stop: 08/17/20 20:59 Last Admin: 07/19/20 08:16 Dose: 200 mg Documented by: [id number] Admin: 07/18/20 21:54 Dose: 200 mg Documented by: [id number] Guaifenesin (Guaifenesin Sugar Free 200 Mg/10 Ml Udc) 200 mg PEG Q6 ANA ROSA Stop: 08/18/20 12:59 Last Admin: 07/20/20 13:00 Dose: 200 mg Documented by: [id number] Admin: 07/20/20 06:03 Dose: 200 mg Documented by: [id number] Admin: 07/20/20 00:09 Dose: 200 mg Documented by: [id number] Admin: 07/19/20 17:16 Dose: 200 mg Documented by: [id number] Admin: 07/19/20 13:20 Dose: 200 mg Documented by: [id number] Piperacillin Sod/Tazobactam Sod (Zosyn) 4.5 gm in 120 mls @ 240 mls/hr IV NOW ONE Stop: 07/17/20 17:00 Last Infusion: 07/17/20 18:43 Dose: 0 mls/hr Documented by: [id number] Admin: 07/17/20 17:29 Dose: 240 mls/hr Documented by: [id number] Sodium Chloride (Nss 1000ml) 500 mls @ 999 mls/hr IV .Q31M ONE Stop: 07/17/20 20:06 Last Infusion: 07/17/20 20:32 Dose: 999 mls/hr Documented by: [id number] Admin: 07/17/20 19:44 Dose: 999 mls/hr Documented by: [id number] Sodium Chloride (Nss 1000ml) 1,000 mls @ 125 mls/hr IV .Q8H STA Stop: 07/18/20 03:35 Last Infusion: 07/18/20 01:55 Dose: 0 mls/hr Documented by: [id number] Admin: 07/17/20 20:31 Dose: 125 mls/hr Documented by: [id number] Sodium Chloride (Nss 1000ml) 500 mls @ 999 mls/hr IV .Q31M ONE Stop: 07/17/20 20:48 Last Infusion: 07/17/20 21:02 Dose: 999 mls/hr Documented by: [id number] Admin: 07/17/20 20:31 Dose: 999 mls/hr Documented by: [id number] Vancomycin HCl 1,000 mg/ (Sodium Chloride) 270 mls @ 200 mls/hr IV NOW STA Stop: 07/18/20 04:50 Last Infusion: 07/18/20 06:54 Dose: 0 mls/hr Documented by: [id number] Admin: 07/18/20 04:00 Dose: 200 mls/hr Documented by: [id number] Piperacillin Sod/Tazobactam (Sod 3.375 gm/ Dextrose) 115 mls @ 230 mls/hr IV NOW STA; Protocol Stop: 07/18/20 04:00 Last Infusion: 07/18/20 04:30 Dose: 0 mls/hr Documented by: [id number] Admin: 07/18/20 04:00 Dose: 230 mls/hr Documented by: [id number] Vancomycin HCl 750 mg/ Sodium (Chloride) 265 mls @ 200 mls/hr IV Q12H ANA ROSA Stop: 07/25/20 15:59 Last Infusion: 07/19/20 05:30 Dose: 0 mls/hr Documented by: [id number] Admin: 07/19/20 03:56 Dose: 200 mls/hr Documented by: [id number] Infusion: 07/18/20 17:34 Dose: 0 mls/hr Documented by: [id number] Admin: 07/18/20 15:53 Dose: 200 mls/hr Documented by: [id number] Piperacillin Sod/Tazobactam (Sod 4.5 gm/ Dextrose) 120 mls @ 28.75 mls/hr IV Q8H ANA ROSA; Protocol Stop: 07/25/20 09:59 Last Infusion: 07/20/20 13:50 Dose: 0 mls/hr Documented by: [id number] Admin: 07/20/20 10:01 Dose: 28.8 mls/hr Documented by: [id number] Infusion: 07/20/20 06:25 Dose: 0 mls/hr Documented by: [id number] Admin: 07/20/20 02:12 Dose: 28.8 mls/hr Documented by: [id number] Infusion: 07/19/20 21:27 Dose: 0 mls/hr Documented by: [id number] Admin: 07/19/20 17:16 Dose: 28.8 mls/hr Documented by: [id number] Infusion: 07/19/20 14:37 Dose: 0 mls/hr Documented by: [id number] Admin: 07/19/20 08:23 Dose: 28.8 mls/hr Documented by: [id number] Infusion: 07/19/20 05:45 Dose: 0 mls/hr Documented by: [id number] Admin: 07/19/20 01:34 Dose: 28.8 mls/hr Documented by: [id number] Infusion: 07/18/20 22:17 Dose: 0 mls/hr Documented by: [id number] Admin: 07/18/20 18:06 Dose: 28.8 mls/hr Documented by: [id number] Infusion: 07/18/20 15:12 Dose: 0 mls/hr Documented by: [id number] Admin: 07/18/20 10:48 Dose: 28.8 mls/hr Documented by: [id number] Potassium Chloride (K Gavin / Wtr) 10 meq in 100 mls @ 100 mls/hr IV Q1H ANA ROSA Stop: 07/19/20 10:59 Last Infusion: 07/19/20 11:42 Dose: 0 mls/hr Documented by: [id number] Admin: 07/19/20 10:42 Dose: 100 mls/hr Documented by: [id number] Infusion: 07/19/20 10:29 Dose: 100 mls/hr Documented by: [id number] Admin: 07/19/20 09:29 Dose: 100 mls/hr Documented by: [id number] Ioversol (Optiray 350 500ml) 110 ml IV ONCE ONE Stop: 07/17/20 18:01 Last Admin: 07/17/20 18:04 Dose: 110 ml Documented by: [id number] Levothyroxine Sodium ([facility]othy[facility] S[facility] 100 Mcg [facility]t) [facility]: 08/17/20 06:29 Last Admin: 07/20/20 06:03 Dose: 100 mcg Documented by: [id number] Admin: 07/19/20 05:28 Dose: 100 mcg Documented by: [id number] Admin: 07/18/20 06:48 Dose: 100 mcg Documented by: [id number] Lorazepam (Lorazepam 1 Mg Tab) 1 mg PO QID PRN PRN Reason: Anxiety Stop: 08/17/20 02:23 Last Admin: 07/20/20 13:23 Dose: 1 mg Documented by: [id number] Admin: 07/19/20 17:38 Dose: 1 mg Documented by: [id number] Admin: 07/19/20 08:23 Dose: 1 mg Documented by: [id number] Admin: 07/19/20 01:30 Dose: 1 mg Documented by: [id number] Admin: 07/18/20 15:58 Dose: 1 mg Documented by: [id number] Admin: 07/18/20 07:53 Dose: 1 mg Documented by: [id number] Miscellaneous (*Gentamicin 0.1% Oint*Order Awaiting Action) 1 ea N/A QS [facility] Stop: 08/17/20 07:59 Last Admin: 07/20/20 08:28 Dose: Not Given Documented by: [id number] Admin: 07/20/20 00:10 Dose: Not Given Documented by: [id number] Admin: 07/19/20 16:08 Dose: Not Given Documented by: [id number] Admin: 07/19/20 07:12 Dose: Not Given Documented by: [id number] Admin: 07/19/20 00:27 Dose: Not Given Documented by: [id number] Admin: 07/18/20 15:49 Dose: Not Given Documented by: [id number] Admin: 07/18/20 07:34 Dose: Not Given Documented by: [id number] Miscellaneous (Remove Nicoderm Patch) 1 ea N/A DAILY@0859 ANA ROSA Stop: 08/17/20 08:58 Last Admin: 07/20/20 08:26 Dose: 1 ea Documented by: [id number] Admin: 07/19/20 08:16 Dose: 1 ea Documented by: [id number] Admin: 07/18/20 07:42 Dose: 1 ea Documented by: [id number] Nicotine (Nicotine 21 Mg/24 Hr Tdsy) 21 mg TD DAILY ANA ROSA Stop: 08/17/20 08:59 Last Admin: 07/20/20 08:27 Dose: 21 mg Documented by: [id number] Admin: 07/19/20 08:17 Dose: 21 mg Documented by: [id number] Admin: 07/18/20 07:42 Dose: 21 mg Documented by: [id number] Olanzapine (Olanzapine Zydis 5 Mg Orally Dis. Tab) 5 mg PO HS ANA ROSA Stop: 08/17/20 20:59 Last Admin: 07/19/20 20:40 Dose: 5 mg Documented by: [id number] Admin: 07/18/20 20:31 Dose: 5 mg Documented by: [id number] Oxycodone HCl (Oxycodone Hcl Soln 5 Mg/5 Ml Udc) 15 mg PO Q4H PRN PRN Reason: Breakthrough Pain Stop: 08/01/20 03:31 Last Admin: 07/20/20 13:00 Dose: 15 mg Documented by: [id number] Admin: 07/20/20 09:11 Dose: 15 mg Documented by: [id number] Admin: 07/19/20 20:40 Dose: 15 mg Documented by: [id number] Admin: 07/19/20 13:19 Dose: 15 mg Documented by: [id number] Admin: 07/19/20 06:39 Dose: 15 mg Documented by: [id number] Admin: 07/19/20 02:22 Dose: 15 mg Documented by: [id number] Admin: 07/18/20 18:45 Dose: 15 mg Documented by: [id number] Admin: 07/18/20 12:57 Dose: 15 mg Documented by: [id number] Admin: 07/18/20 06:47 Dose: 15 mg Documented by: [id number] Potassium Chloride (Potassium Chloride 20 Meq/15 Ml Udc) 40 meq PEG NOW STA Stop: 07/20/20 08:24 Last Admin: 07/20/20 09:11 Dose: 40 meq Documented by: [id number] Prednisone (Prednisone 10 Mg Tablet) 10 mg GT DAILY ANA ROSA Stop: 08/17/20 08:59 Last Admin: 07/20/20 08:26 Dose: 10 mg Documented by: [id number] Admin: 07/19/20 08:18 Dose: 10 mg Documented by: [id number] Admin: 07/18/20 07:42 Dose: 10 mg Documented by: [id number] Pregabalin (Pregabalin 50 Mg Cap) 50 mg PO HS ANA ROSA Stop: 08/17/20 20:59 Last Admin: 07/19/20 20:49 Dose: 50 mg Documented by: [id number] Admin: 07/18/20 20:31 Dose: 50 mg Documented by: [id number] Pregabalin (Pregabalin 25 Mg Cap) 25 mg PO BID@0700,1300 ANA ROSA Stop: 08/17/20 06:59 Last Admin: 07/20/20 13:00 Dose: 25 mg Documented by: [id number] Admin: 07/20/20 08:25 Dose: 25 mg Documented by: [id number] Admin: 07/19/20 13:20 Dose: 25 mg Documented by: [id number] Admin: 07/19/20 08:16 Dose: 25 mg Documented by: [id number] Admin: 07/18/20 12:56 Dose: 25 mg Documented by: [id number] Admin: 07/18/20 07:42 Dose: 25 mg Documented by: [id number] Sodium Chloride (Sodium Chlor 7% 4 Ml Neb) 4 ml NEB BIDR ANA ROSA Stop: 08/17/20 18:59 Last Admin: 07/20/20 07:26 Dose: 4 ml Documented by: [id number] Admin: 07/19/20 19:29 Dose: 4 ml Documented by: [id number] Admin: 07/19/20 07:07 Dose: 4 ml Documented by: [id number] Admin: 07/18/20 19:24 Dose: 4 ml Documented by: [id number] Sodium Chloride (Sodium Chlor 7% 4 Ml Neb) 4 ml NEB BIDR ANA ROSA Stop: 08/18/20 06:59 Last Admin: 07/19/20 07:08 Dose: Not Given Documented by: [id number] Sterile Water (Tube Feeding Water Flush) 125 ml GT Q6 ANA ROSA Stop: 08/17/20 13:29 Last Admin: 07/20/20 13:23 Dose: 125 ml Documented by: [id number] Admin: 07/20/20 06:03 Dose: 125 ml Documented by: [id number] Admin: 07/20/20 00:10 Dose: 125 ml Documented by: [id number] Admin: 07/19/20 17:16 Dose: 125 ml Documented by: [id number] Admin: 07/19/20 11:11 Dose: 125 ml Documented by: [id number] Admin: 07/19/20 05:28 Dose: 125 ml Documented by: [id number] Admin: 07/19/20 00:27 Dose: 125 ml Documented by: [id number] Admin: 07/18/20 18:07 Dose: 125 ml Documented by: [id number] Admin: 07/18/20 13:10 Dose: 125 ml Documented by: [id number] Trazodone HCl (Trazodone Hcl 100 Mg Tab) 200 mg PO QPM ANA ROSA Stop: 08/17/20 20:59 Last Admin: 07/19/20 20:41 Dose: 200 mg Documented by: [id number] Admin: 07/18/20 20:31 Dose: 200 mg Documented by: [id number] Medical Decision Making Differential Diagnosis Infection, dehydration, metabolic abnormality, hypo/hyperglycemia, electrolyte disturbance, anemia, hypoxia, cardiac sources, intracerebral event, toxicologic, neurologic, as well as other pathologies. Medical Records Attestation: I reviewed the patient's medical records. Home Medications Current Medication List: was personally reviewed by me Laboratory Data Attestation: I reviewed the patient's lab results. Result diagrams: 07/19/20 06:44 07/19/20 06:44 Lab Results 07/17/20 07/17/20 07/17/20 Range/Units 16:09 16:09 16:09 WBC 17.10 H (4.8-10.8) K/uL RBC 3.00 L (4.2-5.4) M/uL Hgb 9.0 L (12.0-16.0) g/dL Hct 27.8 L (37-47) % MCV 92.7 (80-100) fL MCH 30.0 (25-34) pg MCHC 32.4 (32-36) g/dL RDW Std Deviation 59.7 H (36.4-46.3) fL RDW Coeff of Singh 17.7 H (11.5-14.5) % Plt Count 455 H (130-400) K/uL MPV 9.0 (7.4-10.4) fL Immature Gran % (Auto) 0.3 % Neut % (Auto) 92.7 % Lymph % (Auto) 3.6 % Cascade % (Auto) 3.2 % Eos % (Auto) 0.1 % Baso % (Auto) 0.1 % Neut # (Auto) 15.85 H (1.4-6.5) K/uL Lymph # (Auto) 0.62 L (1.2-3.4) K/uL Cascade # (Auto) 0.55 (0.11-0.59) K/uL Eos # (Auto) 0.02 (0-0.5) K/uL Baso # (Auto) 0.01 (0-0.2) K/uL Immature Gran # (Auto) 0.05 H (0.00-0.02) K/uL PT (9.0-12.0) Seconds INR (0.9-1.1) APTT (21.0-31.0) Seconds PTT Ratio Sodium 122 L (136-145) mmol/L Potassium 4.4 (3.5-5.1) mmol/L Chloride 83 L (98-107) mmol/L Carbon Dioxide 34 H (21-32) mmol/L Anion Gap 6.0 (3-11) BUN 19 H (7-18) mg/dl Creatinine 0.61 (0.6-1.2) mg/dl Est Cr Clr Drug Dosing Not Reportable Est GFR ( Amer) 115.8 ml/min Est GFR (Non-Af Amer) 99.9 ml/min BUN/Creatinine Ratio 31.1 H (10-20) Glucose 134 H (70-99) mg/dl Osmolality (280-300) mOsm/kg Lactate (0.4-2.0) mmol/L Calcium 8.4 L (8.5-10.1) mg/dl Magnesium 1.9 (1.8-2.4) mg/dl Total Bilirubin 0.2 (0.2-1) mg/dl AST 36 (15-37) U/L ALT 21 (12-78) U/L Alkaline Phosphatase 82 (45-117) U/L Troponin I < 0.015 (0-0.045) ng/ml Total Protein 7.1 (6.4-8.2) gm/dl Albumin 2.2 L (3.4-5.0) gm/dl Globulin 4.9 H (2.5-4.0) gm/dl Albumin/Globulin Ratio 0.5 L (0.9-2) Procalcitonin (0-0.5) ng/ml Urine Color Yellow Urine Appearance Clear (Clear) Urine pH 8.5 H (4.5-7.5) Ur Specific [place] 1.010 (1.000-1.030) Urine Protein 1+ H (Negative) Urine Glucose (UA) Negative (Negative) Urine Ketones Negative (Negative) Urine Blood 3+ H (Negative) Urine Nitrite Negative (Negative) Urine Bilirubin Negative (Negative) Urine Urobilinogen Negative (Negative) Ur Leukocyte Esterase Trace H (Negative) Urine WBC (Auto) 1-5 (0-5) /hpf Urine RBC (Auto) >30 H (0-4) /hpf U Hyaline Cast (Auto) 1-5 (0-5) /lpf U Epithel Cells (Auto) 10-20 H (0-5) /lpf Urine Bacteria (Auto) Negative (Negative) COVID-19 Eval Order SARS-CoV-2 (PCR) (Negative) 07/17/20 07/17/20 07/17/20 Range/Units 16:09 16:09 17:01 WBC (4.8-10.8) K/uL RBC (4.2-5.4) M/uL Hgb (12.0-16.0) g/dL Hct (37-47) % MCV (80-100) fL MCH (25-34) pg MCHC (32-36) g/dL RDW Std Deviation (36.4-46.3) fL RDW Coeff of Singh (11.5-14.5) % Plt Count (130-400) K/uL MPV (7.4-10.4) fL Immature Gran % (Auto) % Neut % (Auto) % Lymph % (Auto) % Cascade % (Auto) % Eos % (Auto) % Baso % (Auto) % Neut # (Auto) (1.4-6.5) K/uL Lymph # (Auto) (1.2-3.4) K/uL Cascade # (Auto) (0.11-0.59) K/uL Eos # (Auto) (0-0.5) K/uL Baso # (Auto) (0-0.2) K/uL Immature Gran # (Auto) (0.00-0.02) K/uL PT (9.0-12.0) Seconds INR (0.9-1.1) APTT (21.0-31.0) Seconds PTT Ratio Sodium (136-145) mmol/L Potassium (3.5-5.1) mmol/L Chloride (98-107) mmol/L Carbon Dioxide (21-32) mmol/L Anion Gap (3-11) BUN (7-18) mg/dl Creatinine (0.6-1.2) mg/dl Est Cr Clr Drug Dosing Est GFR ( Amer) ml/min Est GFR (Non-Af Amer) ml/min BUN/Creatinine Ratio (10-20) Glucose (70-99) mg/dl Osmolality 264 L (280-300) mOsm/kg Lactate 0.9 (0.4-2.0) mmol/L Calcium (8.5-10.1) mg/dl Magnesium (1.8-2.4) mg/dl Total Bilirubin (0.2-1) mg/dl AST (15-37) U/L ALT (12-78) U/L Alkaline Phosphatase (45-117) U/L Troponin I (0-0.045) ng/ml Total Protein (6.4-8.2) gm/dl Albumin (3.4-5.0) gm/dl Globulin (2.5-4.0) gm/dl Albumin/Globulin Ratio (0.9-2) Procalcitonin 0.10 (0-0.5) ng/ml Urine Color Urine Appearance (Clear) Urine pH (4.5-7.5) Ur Specific [place] (1.000-1.030) Urine Protein (Negative) Urine Glucose (UA) (Negative) Urine Ketones (Negative) Urine Blood (Negative) Urine Nitrite (Negative) Urine Bilirubin (Negative) Urine Urobilinogen (Negative) Ur Leukocyte Esterase (Negative) Urine WBC (Auto) (0-5) /hpf Urine RBC (Auto) (0-4) /hpf U Hyaline Cast (Auto) (0-5) /lpf U Epithel Cells (Auto) (0-5) /lpf Urine Bacteria (Auto) (Negative) COVID-19 Eval Order SARS-CoV-2 (PCR) (Negative) 07/17/20 07/17/20 07/17/20 Range/Units 17:02 17:42 17:42 WBC (4.8-10.8) K/uL RBC (4.2-5.4) M/uL Hgb (12.0-16.0) g/dL Hct (37-47) % MCV (80-100) fL MCH (25-34) pg MCHC (32-36) g/dL RDW Std Deviation (36.4-46.3) fL RDW Coeff of Singh (11.5-14.5) % Plt Count (130-400) K/uL MPV (7.4-10.4) fL Immature Gran % (Auto) % Neut % (Auto) % Lymph % (Auto) % Cascade % (Auto) % Eos % (Auto) % Baso % (Auto) % Neut # (Auto) (1.4-6.5) K/uL Lymph # (Auto) (1.2-3.4) K/uL C[place] # (Auto) (0.11-0.59) K/uL Eos # (Auto) (0-0.5) K/uL Baso # (Auto) (0-0.2) K/uL Immature Gran # (Auto) (0.00-0.02) K/uL PT 10.9 (9.0-12.0) Seconds INR 1.1 (0.9-1.1) APTT 26.9 (21.0-31.0) Seconds PTT Ratio 1.0 Sodium (136-145) mmol/L Potassium (3.5-5.1) mmol/L Chloride (98-107) mmol/L Carbon Dioxide (21-32) mmol/L Anion Gap (3-11) BUN (7-18) mg/dl Creatinine (0.6-1.2) mg/dl Est Cr Clr Drug Dosing Est GFR ( Amer) ml/min Est GFR (Non-Af Amer) ml/min BUN/Creatinine Ratio (10-20) Glucose (70-99) mg/dl Osmolality (280-300) mOsm/kg Lactate (0.4-2.0) mmol/L Calcium (8.5-10.1) mg/dl Magnesium (1.8-2.4) mg/dl Total Bilirubin (0.2-1) mg/dl AST (15-37) U/L ALT (12-78) U/L Alkaline Phosphatase (45-117) U/L Troponin I (0-0.045) ng/ml Total Protein (6.4-8.2) gm/dl Albumin (3.4-5.0) gm/dl Globulin (2.5-4.0) gm/dl Albumin/Globulin Ratio (0.9-2) Procalcitonin (0-0.5) ng/ml Urine Color Urine Appearance (Clear) Urine pH (4.5-7.5) Ur Specific [place] (1.000-1.030) Urine Protein (Negative) Urine Glucose (UA) (Negative) Urine Ketones (Negative) Urine Blood (Negative) Urine Nitrite (Negative) Urine Bilirubin (Negative) Urine Urobilinogen (Negative) Ur Leukocyte Esterase (Negative) Urine WBC (Auto) (0-5) /hpf Urine RBC (Auto) (0-4) /hpf U Hyaline Cast (Auto) (0-5) /lpf U Epithel Cells (Auto) (0-5) /lpf Urine Bacteria (Auto) (Negative) COVID-19 Eval Order Covid19 at [facility] SARS-CoV-2 (PCR) NEGATIVE (Negative) Imaging Data Radiologist's Impression: Chest X-Ray 07/17/20 15:43 XR chest 1V portable CLINICAL HISTORY: Shortness of breath. COMPARISON STUDY: Chest radiograph May 14, 2020. FINDINGS: Intracanalicular electrodes are incidentally noted. Tracheostomy tube is present as well as a left-sided [id number]. Cardiac size is normal. No pneumothorax or pleural effusion is noted. There is no consolidation. There is pulmonary vascular congestion without overt pulmonary edema. IMPRESSION: Pulmonary vascular congestion without overt pulmonary edema. ACT 112: Negative or not required by law. Electronically signed by: Jose Maria Adame M.D. 07/17/2020 4:57 PM Chest CTA 07/17/20 16:10 CT ANGIOGRAPHY OF THE CHEST, PULMONARY EMBOLUS PROTOCOL CLINICAL HISTORY: Dyspnea COMPARISON STUDY: Chest CT July 12, 2017. Chest radiograph performed earlier today. TECHNIQUE: Following IV administration of 110 mL of Optiray, helical axial images of the chest were obtained utilizing the pulmonary embolus protocol. Maximal intensity projections and sagittal and coronal reformats were viewed on an independent 3D workstation. IV contrast was administered without complication. Automated exposure control was utilized for the study. A dose lowering technique was utilized adhering to the principles of ALARA. CT DOSE: 1082.41 mGy.cm FINDINGS: No pulmonary emboli are identified. There is no thoracic aortic dissection. A left internal jugular [id number]-Wedl is in place. Size of the heart is normal. There is no pericardial effusion. No pneumothorax or pleural effusion is noted. There are numerous calcified granulomas within the lungs. There are several mildly enlarged right hilar lymph nodes. There are several prominent mediastinal lymph nodes. Note is made of moderate right lower lobe consolidation. Mild left lower lobe airspace opacities are present. There is bronchial wall thickening and mucus plugging, most throughout within the right lower lobe. Secretions within right lower lobe bronchi are noted. No suspicious lesions within the bony thorax are noted. Intracanalicular electrodes are partially imaged. Tracheostomy tube is noted. IMPRESSION: 1. No pulmonary emboli identified. 2. Moderate right lower lobe consolidation. Mild left lower lobe airspace opacity. The findings favor pneumonia or aspiration pneumonitis. Secretions and bronchial wall thickening, most pronounced within the right lower lobe. 3. Mildly enlarged right hilar lymph nodes. These are likely reactive. A follow up chest CT in 3 months to ensure resolution is recommended. 4. Mild emphysema. ACT 112: Negative or not required by law. Electronically signed by: Jose Maria Adame M.D. 07/17/2020 6:17 PM ECG Data Attestation: I personally reviewed and interpreted this ECG as follows: Indication: + weakness Rate (beats per minute): 80 Rhythm: + normal sinus ECG Intervals/blocks: + Normal QRS and + Normal QT-c ECG [place]: + Normal ECG ST segments: + Normal ST segments ECG Findings: + Q waves; no PACs and no PVCs Blood Pressure Blood Pressure Findings: Low blood pressure Blood Pressure Disposition: further management by hospitalist LULÚ Lee This patient was evaluated and appeared to be in no significant distress. IV access was obtained through the patient's indwelling port. An order for cardiac monitoring was placed and the patient is noted to be in a normal sinus rhythm at 78 bpm. Chest x-ray was performed and reveals some mild pulmonary edema. Follow-up chest CT was then performed and reveals evidence of pneumonitis versus aspiration. Patient was medicated with IV Zosyn and hydrated with normal saline solution. Her states her blood pressure does normally run low due to her petite frame. Patient has a white blood cell of 17 with a lactate 0.9. Covid swab is negative. Case was discussed with the hospitalist to evaluate the patient for further evaluation management. Patient and are aware of the plan and agreed. Impression & Plan Pneumonia, Oropharyngeal carcinoma, S/P percutaneous endoscopic gastrostomy (PEG) tube placement, Tracheostomy in place Discharge Plan Visit Data Chief Complaint: Shortness of Breath/Dyspnea Stated Complaint: SOB, CANT BREATHE ED Provider: Deepali Gonzalez Discharge Problem: Pneumonia, Oropharyngeal carcinoma, S/P percutaneous endoscopic gastrostomy (PEG) tube placement, Tracheostomy in place Patient Disposition: Admitted As Inpatient Discharge Instructions Interventions: ED Discharge Assessment Last Done: 07/18/20 00:50 Discharge Problem: Pneumonia Qualifiers: Pneumonia type: aspiration pneumonia Aspiration pneumonia type: unspecified Lat erality: left Lung location: lower lobe of lung Qualified Code(s): J69.0 - Pneumonitis due to inhalation of food and vomit
[2020-07-17] MEDS ORDERED: ATIVAN 1MG HOMEPACK PO PRN (23:00)
[2020-07-18 00:04] LABS: BUN Creatinine Ratio 25.3 (10-20); Blood Urea Nitrogen 13 mg/dl (7-18); Carbon Dioxide 35 mmol/L (21-32); Chloride 94 mmol/L (98-107); Est GFR (African American) 121.3 ml/min; Est GFR (Non-African American) 104.7 ml/min; Glucose 89 mg/dl (70-99); Potassium 4.2 mmol/L (3.5-5.1)
[2020-07-18 00:30] LABS: Sodium 133 mmol/L (136-145)
[2020-07-18] MEDS ORDERED: ENOXAPARIN INJ 40 MG/0.4 ML SYR SQ STA (00:51)
[2020-07-18] MEDS ORDERED: POLYETHYLENE (MIRALAX) 17 GM PACK PEG PRN (01:51)
[2020-07-18] MEDS ORDERED: MENTHOL-ZINC OXIDE 360 APPLN/120 GM TUBE EXT PRN (01:51)
[2020-07-18] MEDS ORDERED: ONDANSETRON INJ 2 MG/ML 2 ML VIAL IV PRN (01:51)
[2020-07-18] MEDS ORDERED: VANCOMYCIN CONSULT ACTIVE PRN (02:32)
[2020-07-18] MEDS ORDERED: PIPERACILL/TAZOBAC CONSULT ACTIVE PRN (02:33)
[2020-07-18] MEDS ORDERED: IMPACT LIQD 1.0 CAL 1,000 ML BAG PEG SCH (02:45)
[2020-07-18] MEDS ORDERED: PATIENT'S HEIGHT AND/OR WEIGHT NEEDED SCH (02:45)
[2020-07-18] MEDS ORDERED: ACETAMINOPHEN 325 MG TAB PEG PRN (03:15)
[2020-07-18] MEDS ORDERED: VANCOMYCIN HCL 1,000 MG in SODIUM CHLORIDE 0.9% 250 ML IV STA (03:30)
[2020-07-18] MEDS ORDERED: PIPERACILLIN/TAZOBACTAM 3.375 GM in DEXTROSE 5% 100 ML IV STA (03:31)
[2020-07-18 03:48] LABS: Hematocrit (blood only) 26.6 % (37-47); Hemoglobin 8.3 g/dL (12.0-16.0); Mean Corpuscular Hemoglobin 29.5 pg (25-34); Mean Corpuscular Hgb Conc 31.2 g/dL (32-36); Mean Corpuscular Volume 94.7 fL (80-100); Mean Platelet Volume 8.7 fL (7.4-10.4); Platelet Count 422 K/uL (130-400); RDW Coefficient of Variation 17.8 % (11.5-14.5); RDW Standard Deviation 60.5 fL (36.4-46.3); Red Blood Count 2.81 M/uL (4.2-5.4); White Blood Count 11.27 K/uL (4.8-10.8)
[2020-07-18] MEDS: ENOXAPARIN INJ 40 MG/0.4 ML SYR SQ SCH (04:01)
[2020-07-18 04:11] LABS: BUN Creatinine Ratio 27.9 (10-20); Calcium 8.2 mg/dl (8.5-10.1); Creatinine Clr Calc Pharmacy 116.9 ml/min; Est GFR (Non-African American) 113.9 ml/min; Potassium 3.6 mmol/L (3.5-5.1)
--- NOTE | 2020-07-18 04:16 | Pharmacy Report ---
Pharmacy Abx Dose Short Note - Date of Service July 18, 2020 - Assessment & Plan Assessment 59 year old F receiving Vancomycin and Zosyn for treatment of pneumonia * PMHx significant for recurrent oropharyngeal cancer on Keytruda, PEG tube in place * Presents with productive sputum from trach x 5 days * Afebrile. Leukocytosis of 17k. Renal fxn at baseline. * Cultures pending. Order MRSA nasal swab per protocol. Started on Vancomycin and Zosyn. Plan Vancomycin * Loading dose: 1000 mg (20 mg/kg) IV x 1 * Maintenance dose: 750 mg (15 mg/kg) IV every 12 hours * Goal Trough: 15-20 mcg/mL * Trough ordered for 07/20/20 Zosyn * Received 4.5 g IV x 1 in the ED. Required reloading due to time in between doses so received another 3.375 g IV x 1 dose on the floor. * Start 3.375 g IV every 8 hours Pharmacy will continue to follow and will adjust dose/frequency as necessary. Thank you.
--- NOTE | 2020-07-18 06:31 | Ultrasound Report ---
BILATERAL LOWER EXTREMITY VENOUS DOPPLER HISTORY: Acute pain and swelling of the lower legs swelling, cancer, DVT COMPARISON STUDY: None. FINDINGS: There is normal compressibility, flow, and augmentation within the bilateral lower extremit y deep venous systems. IMPRESSION: No DVT within the right or left lower extremity. ACT 112: Negative or not required by law. Electronically signed by: Domenico Nix M.D. 07/18/2020 6:29 AM
[2020-07-18] MEDS: oxyCODONE HCL SOLN 5 MG/5 ML UDC PO PRN ×3 (06:47→18:45)
[2020-07-18] MEDS: LEVOTHYROXINE SODIUM 100 MCG TABLET GT SCH (06:48)
[2020-07-18] MEDS: ALBUTEROL HFA 8 GM INHALER INH SCH ×4 (07:24→19:23)
[2020-07-18] MEDS: FAMOTIDINE 40 MG TABLET GT SCH (07:41)
[2020-07-18] MEDS: predniSONE 10 MG TABLET GT SCH (07:42)
[2020-07-18] MEDS: NICOTINE 21 MG/24 HR TDSY TD SCH (07:42)
[2020-07-18] MEDS: PREGABALIN 25 MG CAP PO SCH ×2 (07:42→12:56)
[2020-07-18] MEDS: FLUTICASONE/VILANTEROL 100/25MCG 14 PUFFS/INHALER INH SCH (07:43)
[2020-07-18] MEDS: COLLAGENASE OINT 30 GM TUBE TOP SCH (07:44)
[2020-07-18] MEDS: LORazepam 1 MG TAB PO PRN ×2 (07:53→15:58)
[2020-07-18] MEDS ORDERED: guaiFENesin SUGAR FREE 200 MG/10 ML UDC PO SCH (09:00)
[2020-07-18] MEDS ORDERED: FEXOFENADINE HCL 180 MG TAB PO SCH (09:00)
--- NOTE | 2020-07-18 09:05 | Pulmonary Consultation ---
Date of Consultation July 18, 2020 Assessment & Plan (1) Pneumonia: (2) Tracheostomy in place: Impression: 59-year-old female with extensive surgery for orofacial cancer currently on Keytruda and prednisone now with pneumonia, culture showing gram- negative rods. The patient asks on my evaluation if I can change her trach. She would also like the trach out. Recommendations: 1. Pneumonia: Agree with Zosyn and empiric vancomycin pending culture data. Increase Zosyn to 4.5 g IV every 8 (antipseudomonal doses) pending sensitivity and culture data. Will tailor antibiotics based on results. Due to her tracheostomy, flutter valve is not an option. May consider percussive therapy depending on clinical response. 2. Mucus plugging: We will place the patient on a trial of hypertonic saline. She is already receiving Robitussin but will increase the dose to 1200 mg daily. She appears to be coughing adequately so I do not think there is an indication for bronchoscopy currently. 3. Hypoxemia: Secondary to #1 and #2. Continue supplemental oxygen titrated to keep saturations at or above 90%. 4. Tracheostomy: I advised the patient today I would not change or adjust her trach as it was placed surgically. If changes need to be made to her tracheostomy, ENT consultation should be obtained and the patient may require transfer to either [facility] or [facility] to manage. 5. Oropharyngeal cancer: Would hold chemotherapy pending resolution of the patient's infectious issues. Management of the patient's other medical issues is deferred to the primary admitting service. We will follow for pulmonary issues. Feel free to contact us with questions or concerns History of Present Illness Attending Physician: Geri Ferreira MD History of Present Illness Asked by hospitalist to assist in evaluation management of this complicated medical patient with a tracheostomy and basilar pneumonia. History is obtained from discussion with the patient although it somewhat limited as she is status post laryngectomy and can only communicate by writing. The electronic medical record was also reviewed. Patient is a 59-year-old female who gets the majority of her care through [facility] and at the [facility]. She was diagnosed with oropharyngeal cancer in 2018 and unfortunately suffered a recurrence February 2020. She was seen at [facility] in April 2020 and underwent total laryngectomy with radical neck. Tracheostomy was done at that time as well and the patient has been on Keytruda. She is also been seen at the [facility]. Her last Keytruda therapy was 07/11/2020. The patient complained of sputum production from her tracheostomy which was tenacious and thick and yellow but had no blood in it. She had some swelling around the trach as well. She has been on prednisone for some facial swelling currently at 10 mg daily. Due to some shortness of breath, the patient was brought to the emergency room. CT scan demonstrated basilar airspace opacities. She was placed on Zosyn and vancomycin. Trach cultures have shown 2 different species of gram-negative rods. The wound culture from May grew Pseudomonas as well as group B strep. The Pseudomonas at that time was pansensitive. She does not appear in any respiratory distress and states that her breathing is about the same. She remains on a trach collar. Allergies Allergy/AdvReac Type Severity Reaction Status Date / Time No Known Allergies Allergy Mild NONE Verified 07/17/20 17:13 Home Medications Medication Instructions Recorded Confirmed Type Breo Ellipta 1 ea INHALATION DAILY 05/14/20 07/17/20 History albuterol sulfate 2 puff INHALATION QID 05/14/20 07/17/20 History albuterol sulfate 2.5 mg INHALATION Q4H PRN 05/14/20 07/17/20 History fluoxetine 20 mg FEEDING TUBE QPM 05/14/20 07/17/20 History fluoxetine 40 mg FEEDING TUBE QAM 05/14/20 07/17/20 History lorazepam 1 mg FEEDING TUBE Q6H PRN 05/14/20 07/17/20 History olanzapine 5 mg FEEDING TUBE HS 05/14/20 07/17/20 History ondansetron 8 mg PO Q8H PRN 05/14/20 07/17/20 History oxycodone 15 mg FEEDING TUBE Q3H PRN 05/14/20 07/17/20 History pregabalin 25 mg FEEDING TUBE BID 05/14/20 07/17/20 History promethazine 6.25 mg FEEDING TUBE QID PRN 05/14/20 07/17/20 History trazodone 200 mg FEEDING TUBE QPM 05/14/20 07/17/20 History gentamicin 0.1 % topical ointment 1 applic TOPICAL DAILY 14 Days #30 06/11/20 07/17/20 Rx g collagenase clostridium histo. 250 1 applic TOPICAL DAILY #30 g 07/07/20 07/17/20 Rx unit/gram topical ointment famotidine 40 mg FEEDING TUBE DAILY 07/17/20 07/17/20 History fexofenadine 180 mg FEEDING TUBE DAILY 07/17/20 07/17/20 History levothyroxine 100 mcg PO DAILY 07/17/20 07/17/20 History menthol-zinc oxide [Calmoseptine] 1 applic TOPICAL BID PRN 07/17/20 07/17/20 History naloxone [Narcan] spray INTRANASAL UD 07/17/20 History nicotine 1 patch TRANSDERMAL DAILY 07/17/20 07/17/20 History prednisone 10 mg FEEDING TUBE DAILY 07/17/20 07/17/20 History pregabalin 50 mg FEEDING TUBE HS 07/17/20 07/17/20 History Patient History Medical History (Updated 07/17/20 @ 21:50 by Erica Dowling PA-C) Anxiety Chronic cough 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 She will keep looking for it and what type her device is. S/P percutaneous endoscopic gastrostomy (PEG) tube placement Family History Other Heart disease Lung cancer Social History Smoking Status: Current every day smoker Tobacco Type: Cigarettes and E-cigarettes / Vaping Age Started Using Tobacco: 15; Age Quit Using Tobacco: 59; Cigarettes Per Day: 1ppd; Second Hand Exposure: No; Hx Alcohol Use: No Hx Substance Use: No Preferred Language: Guamanian Communication Ability: Effective Communication Ability Comment: speaking valve Visual Impairment: No Limitations Hearing Ability: Normal Shuttle Final Inspector Required: No Beliefs That Will Affect Care: None Current Living Situation: Spouse Other Information That Helps Us Care for You: No Feels Safe at Home: Yes Safety Concerns: Feels Safe At This Time Assistive Devices: Oxygen - at Night Review of Systems Review of Systems: Please refer to admission H&P. No additions or deletions Physical Exam Constitutional: + frail appearing Neck: Trach in place. This appears to be a Bivona trach. Respiratory: normal respiratory effort Coarse rhonchi bilaterally. Cardiovascular: RRR, no murmur, no edema Gastrointestinal (Abdomen): normal bowel sounds, soft, nontender, no hepatosplenomegaly Musculoskeletal: Extremities: extremities normal to inspection Skin: no rashes, warm and dry Neurologic: Nonfocal exam Lymphatic: no cervical lymphadenopathy Results & Data Results & Data ([facility]) Vital Signs (Past 12 Hours) Vital Signs Temp Pulse Pulse Pulse Resp BP BP 07/18/20 07:51 37.1 C 69 18 113/68 07/18/20 07:33 82 22 07/18/20 01:55 37.0 C 76 20 114/70 07/18/20 01:53 37.0 C 76 22 114/70 07/18/20 01:45 78 07/18/20 00:31 07/18/20 00:00 63 12 93/62 L 07/17/20 23:34 64 18 126/79 07/17/20 23:00 59 L 14 88/53 L 07/17/20 22:40 60 10 L 07/17/20 22:31 60 15 07/17/20 22:30 59 L 18 93/54 L 07/17/20 22:20 63 13 07/17/20 22:17 62 13 07/17/20 22:16 61 17 100/70 07/17/20 22:10 63 16 07/17/20 22:00 63 12 07/17/20 21:55 78 10 L 07/17/20 21:40 62 9 L 07/17/20 21:30 62 13 07/17/20 21:24 66 18 07/17/20 21:00 Pulse Ox 07/18/20 07:51 93 07/18/20 07:33 82 L 07/18/20 01:55 95 07/18/20 01:53 94 07/18/20 01:45 07/18/20 00:31 87 L 07/18/20 00:00 94 07/17/20 23:34 95 07/17/20 23:00 96 07/17/20 22:40 95 07/17/20 22:31 94 07/17/20 22:30 94 07/17/20 22:20 94 07/17/20 22:17 95 07/17/20 22:16 95 07/17/20 22:10 96 07/17/20 22:00 97 07/17/20 21:55 07/17/20 21:40 94 07/17/20 21:30 88 L 07/17/20 21:24 07/17/20 21:00 94 Laboratory Results 07/18/20 03:33 07/18/20 03:33 Trach cultures with 2 gram-negative rods, speciation and sensitivity pending Diagnostic Findings Chest CT from 07/17/2020 was independently reviewed. There are mucoid secretions present within the right mainstem bronchus extending down into the right lower lobe. Some patchy parenchymal opacities present in the right lower lobe as well . PG Care Time/CCT Total # of Minutes Spent Total Time Spent with Patient: Total time spent is greater than 50% in coordination of care (as documented) at patient's floor/unit and/or counseling patient: Coding Level of Care Code 83967 Initial Inpt Care Lvl 3 Diagnoses Pneumonia J18.[address] Z93.0 Time Spent (min) 45
[2020-07-18] MEDS ORDERED: PIPERACILLIN/TAZOBACTAM 3.375 GM in DEXTROSE 5% 100 ML IV SCH (10:00)
[2020-07-18] MEDS: PIPERACILLIN/TAZOBACTAM 4.5 GM in DEXTROSE 5% 100 ML IV SCH ×2 (10:48→18:06)
[2020-07-18] MEDS: PEPTAMEN 1.5 CAL 1,000 ML BAG GT SCH (12:57)
[2020-07-18] MEDS: TUBE FEEDING WATER FLUSH GT SCH ×2 (13:10→18:07)
[2020-07-18] MEDS ORDERED: TUBE FEEDING WATER FLUSH GT SCH (13:30)
[2020-07-18] MEDS: VANCOMYCIN HCL 750 MG in SODIUM CHLORIDE 0.9% 250 ML IV SCH (15:53)
--- NOTE | 2020-07-18 19:07 | Hospitalist Progress Note ---
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 Increased sputum production and SOB x 5 days, in setting of prednisone use for facial swelling Leukocytosis of 17.1, lactate WNL, procalcitonin negative Chest CTA showed no evidence of PE. Moderate right lower lobe consolidation. Mild left lower lobe airspace opacity. The findings favor pneumonia or aspiration pneumonitis. Secretions and bronchial wall thickening, most pronounced within RLL Currently on empirical Zosyn and Vanco Sputum from trach grow gram-negative bacilli We will follow sensitivity and adjust antibiotic accordingly Pulmonary on board Will add chest PT and hypertonic saline neb Continue oxygen supplement (2) Oropharyngeal carcinoma: Diagnosed in 2018 and in remission until February 2020 Last Keytruda dose 07/11/[address] Tyler of [facility] heme onc, also receiving care at [facility] Continue pain control (3) Tracheostomy in place: asked if they can change the trach from the size 5 to a 4 during the hospital course Patient had an appointment today with head and neck surgery but was canceled, and scheduled on 08/01 Dr. Quincy Goodman Will send a text to Dr. Quincy Goodman to see if he can see the patient at an early date to see exchange the trach from a size 5 to 4 I reached out to Dr. Goodman later that said they will contact the patient to try to get her an early appointment to get the trach evaluate Continue monitor closely (4) Hyponatremia: Sodium of 122, baseline ~ mid-130s Na 133 today continue monitor BMP (5) Bilateral lower extremity edema: L>R swelling lower extremities, worsening since 07/11/20 BLE venous dopplers showed no evidence of DVT (6) COPD (chronic obstructive pulmonary disease): Continue home inhalers, supplemental O2 as needed (7) S/P percutaneous endoscopic gastrostomy (PEG) tube placement: Ensure Plus oral liquid through PEG tube Continue tube feedingHe NPO is (8) Depression: (9) Anxiety: Continue Prozac, Ativan, olanzapine HS (10) Tobacco use disorder: Counseling on smoking cessation On Nicotine patch (11) Wound, open, neck: Open wound under trach opening Following with wound care - gentamycin ointment mixed with Santyl and applied daily Wound care nurse consulted DVT Ppx: SQ lovenox Code status: FULL PCP: Jeferson Dispo: Admitted to PCU. . Admission and Anticipated Discharge Date Admission Date: July 17, 2020 Subjective Patient was seen and examined for follow-up of pneumonia Lying in bed with no acute distress with at bedside Patient states that she continues to have a lot of sputum production from the trach Patient said that she since the trach was changed from a size 4 to 5 that every time she drinks something, it comes out to her nose Patient had an appointment with ENT today in [place], unfortunately canceled the appointment. Patient does not use oxygen at home Denies any chest pain, palpitation, dizziness, and fever Review of Systems Review of Systems: All systems reviewed & are unremarkable except as noted in Subjective Physical Exam Physical Exam: General- No acute distress Head- atraumatic Eyes- PERRL, EOMI, ENT- +trach with productive phlegm Neck- supple, no JVD Lungs- +coarse breath sound Heart- regular rhythm; no murmur Abdomen- normal bowel sounds, soft, nontender +peg tube Extremities- no calf tenderness Neuro- alert, oriented x 3; PERRL, EOMI; no facial palsy; no dysarthria Skin- warm & dry Results & Data Results & Data ([facility]) Vital Signs (Past 12 Hours) Vital Signs Temp Pulse Pulse Resp BP Pulse Ox 07/18/20 16:00 37.0 C 71 18 101/64 100 07/18/20 15:28 81 18 99 07/18/20 11:36 36.9 C 72 19 104/65 100 07/18/20 11:06 71 22 96 07/18/20 07:51 37.1 C 69 18 113/68 93 07/18/20 07:33 82 22 82 L (1) COPD (chronic obstructive pulmonary disease) COPD type: unspecified COPD Qualified Code(s): J44.9 - Chronic obstructive pulmonary disease, unspecified
[2020-07-18] MEDS: SODIUM CHLOR 7% 4 ML NEB NEB SCH (19:24)
[2020-07-18] MEDS: OLANZapine ZYDIS 5 MG ORALLY DIS. TAB PO SCH (20:31)
[2020-07-18] MEDS: PREGABALIN 50 MG CAP PO SCH (20:31)
[2020-07-18] MEDS: traZODone HCL 100 MG TAB PO SCH (20:31)
[2020-07-18] MEDS ORDERED: guaiFENesin 600 MG TABCR PO SCH (21:00)
[2020-07-18] MEDS ORDERED: FLUoxetine HCL 20 MG/5 ML 120ML BTL PO SCH (21:00)
[2020-07-18] MEDS: guaiFENesin SUGAR FREE 200 MG/10 ML UDC PEG SCH (21:54)
[2020-07-18] MEDS ORDERED: HEPARIN 100 UNIT/ML 5ML FLUSH FLUSH PRN (23:54)
[2020-07-19] MEDS: TUBE FEEDING WATER FLUSH GT SCH ×4 (00:27→17:16)
[2020-07-19] MEDS: LORazepam 1 MG TAB PO PRN ×3 (01:30→17:38)
[2020-07-19] MEDS: PIPERACILLIN/TAZOBACTAM 4.5 GM in DEXTROSE 5% 100 ML IV SCH ×3 (01:34→17:16)
[2020-07-19] MEDS: oxyCODONE HCL SOLN 5 MG/5 ML UDC PO PRN ×4 (02:22→20:40)
[2020-07-19] MEDS: VANCOMYCIN HCL 750 MG in SODIUM CHLORIDE 0.9% 250 ML IV SCH (03:56)
[2020-07-19] MEDS: ENOXAPARIN INJ 40 MG/0.4 ML SYR SQ SCH (03:56)
[2020-07-19] MEDS: LEVOTHYROXINE SODIUM 100 MCG TABLET GT SCH (05:28)
--- NOTE | 2020-07-19 05:31 | Electrocardiogram Report ---
Test Reason : Blood Pressure : / mmHG Vent. Rate : 080 BPM Atrial Rate : 080 BPM P-R Int : 146 ms QRS Dur : 080 ms QT Int : 384 ms P-R-T Axes : 031 066 069 degrees QTc Int : 442 ms Normal sinus rhythm Normal ECG When compared with ECG of 14-MAY-2020 10:45, Nonspecific T wave abnormality no longer evident in Inferior leads T wave inversion no longer evident in Anterior leads QT has shortened Confirmed by Deep Lamar ([id number]) on 07/19/2020 5:31:20 AM Referred By: REFERRED SELF Confirmed By:Deep Lamar
[2020-07-19 06:57] LABS: Hemoglobin 8.3 g/dL (12.0-16.0); Mean Corpuscular Hgb Conc 31.9 g/dL (32-36); Mean Corpuscular Volume 93.9 fL (80-100); Platelet Count 424 K/uL (130-400); RDW Coefficient of Variation 18.7 % (11.5-14.5); RDW Standard Deviation 63.2 fL (36.4-46.3); Red Blood Count 2.77 M/uL (4.2-5.4); White Blood Count 10.88 K/uL (4.8-10.8)
[2020-07-19] MEDS ORDERED: SODIUM CHLOR 7% 4 ML NEB NEB SCH (07:00)
[2020-07-19] MEDS: SODIUM CHLOR 7% 4 ML NEB NEB SCH ×2 (07:07→19:29)
[2020-07-19] MEDS: ALBUTEROL 0.083% NEBU SOLN 3 ML VIAL INH PRN ×4 (07:07→19:27)
[2020-07-19 07:23] LABS: BUN Creatinine Ratio 16.2 (10-20); Calcium 8.4 mg/dl (8.5-10.1); Creatinine Clr Calc Pharmacy 84.7 ml/min; Est GFR (African American) 119.1 ml/min; Est GFR (Non-African American) 102.8 ml/min; Potassium 3.4 mmol/L (3.5-5.1)
[2020-07-19] MEDS: guaiFENesin SUGAR FREE 200 MG/10 ML UDC PEG SCH ×3 (08:16→17:16)
[2020-07-19] MEDS: PREGABALIN 25 MG CAP PO SCH ×2 (08:16→13:20)
[2020-07-19] MEDS: COLLAGENASE OINT 30 GM TUBE TOP SCH (08:16)
[2020-07-19] MEDS: NICOTINE 21 MG/24 HR TDSY TD SCH (08:17)
[2020-07-19] MEDS: FAMOTIDINE 40 MG TABLET GT SCH (08:18)
[2020-07-19] MEDS: ALBUTEROL HFA 8 GM INHALER INH SCH ×4 (08:18→19:29)
[2020-07-19] MEDS: predniSONE 10 MG TABLET GT SCH (08:18)
[2020-07-19] MEDS: FLUTICASONE/VILANTEROL 100/25MCG 14 PUFFS/INHALER INH SCH (08:18)
--- NOTE | 2020-07-19 08:51 | Hospitalist Progress Note ---
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 Increased sputum production and SOB x 5 days, in setting of prednisone use for facial swelling Leukocytosis of 17.1, lactate WNL, procalcitonin negative Chest CTA showed no evidence of PE. Moderate right lower lobe consolidation. Mild left lower lobe airspace opacity. The findings favor pneumonia or aspiration pneumonitis. Secretions and bronchial wall thickening, most pronounced within RLL Currently on empirical Zosyn and Vanco Sputum from trach grow gram-negative bacilli -Pseudomonas 1 and 2 We will follow sensitivity and adjust antibiotic accordingly Pulmonary on board - recommend to switch to Levaquin 750 mg daily for 14 days on the discharge, ok to DC vanco now Chest PT and hypertonic saline neb Continue oxygen supplement (2) Oropharyngeal carcinoma: Diagnosed in 2017 and in remission until February 2020 Last Keytruda dose 07/11/[address] Tyler of [facility] heme onc, also receiving care at [facility] Continue pain control (3) Tracheostomy in place: asked if they can change the trach from the size 5 to a 4 during the hospital course Patient had an appointment with head and neck surgery but was canceled, and scheduled on 08/01 Dr. Quincy Goodman Contacted Dr. Quincy Goodman to see if he can see the patient at an early date to see exchange the trach from a size [address] Goodman said they will contact the patient to try to get her an early appointment to get the trach evaluate Continue monitor closely (4) Hyponatremia: Sodium of 122, baseline ~ mid-130s Na 133 today continue monitor BMP (5) Bilateral lower extremity edema: L>R swelling lower extremities, worsening since 07/11/20 BLE venous dopplers showed no evidence of DVT (6) COPD (chronic obstructive pulmonary disease): Continue home inhalers, supplemental O2 as needed (7) S/P percutaneous endoscopic gastrostomy (PEG) tube placement: Ensure Plus oral liquid through PEG tube Continue tube feeding NPO (8) Depression: (9) Anxiety: Continue Prozac, Ativan, olanzapine HS (10) Tobacco use disorder: Counseling on smoking cessation On Nicotine patch (11) Wound, open, neck: Open wound under trach opening Following with wound care - gentamycin ointment mixed with Santyl and applied daily Wound care nurse consulted DVT Ppx: SQ lovenox Code status: FULL PCP: Dr. Govea Dispo: Admitted to PCU. . Admission and Anticipated Discharge Date Admission Date: July 17, 2020 Subjective Patient was seen and examined for follow-up of pneumonia Sitting up in bed in no acute distress, feeling better Continues to have sputum production from the trach Patient had an appointment with ENT in [place], canceled the appoint ment. Patient does not use oxygen at home Denies any chest pain, palpitation, dizziness, and fever Seen by pulmonary Review of Systems Review of Systems: All systems reviewed & are unremarkable except as noted in HPI & below Constitutional: no fever and no chills Respiratory: + cough and + dyspnea (improved) Cardiovascular: no chest pain and no palpitations Gastrointestinal: no abdominal pain, no nausea and no vomiting Physical Exam Physical Exam: General- No acute distress Head- atraumatic Eyes- PERRL, EOMI, ENT- +trach with productive phlegm Neck- supple, no JVD Lungs- + rhonchi diffuse Heart- regular rhythm; no murmur Abdomen- normal bowel sounds, soft, nontender +peg tube Extremities- no calf tenderness, moves extremities Neuro- alert, oriented x 3; PERRL, EOMI; no facial palsy; no dysarthria Skin- warm & dry Results & Data Results & Data ([facility]) Vital Signs (Past 12 Hours) Vital Signs Temp Pulse Pulse Resp BP Pulse Ox 07/19/20 07:59 36.8 C 78 18 96/51 L 98 07/19/20 07:08 79 22 99 07/19/20 03:31 37.3 C 78 18 98/62 L 90 07/18/20 23:50 36.8 C 77 18 100/62 90 07/18/20 22:20 67 Laboratory Results 07/19/20 07/19/20 Range/Units 06:44 06:44 WBC 10.88 H (4.8-10.8) K/uL RBC 2.77 L (4.2-5.4) M/uL Hgb 8.3 L (12.0-16.0) g/dL Hct 26.0 L (37-47) % MCV 93.9 (80-100) fL MCH 30.0 (25-34) pg MCHC 31.9 L (32-36) g/dL RDW Std Deviation 63.2 H (36.4-46.3) fL RDW Coeff of Singh 18.7 H (11.5-14.5) % Plt Count 424 H (130-400) K/uL MPV 9.0 (7.4-10.4) fL Sodium 136 (136-145) mmol/L Potassium 3.4 L (3.5-5.1) mmol/L Chloride 99 (98-107) mmol/L Carbon Dioxide 33 H (21-32) mmol/L Anion Gap 4.0 (3-11) BUN 9 (7-18) mg/dl Creatinine 0.56 L (0.6-1.2) mg/dl Est Cr Clr Drug Dosing 84.7 ml/min Est GFR ( Amer) 119.1 ml/min Est GFR (Non-Af Amer) 102.8 ml/min BUN/Creatinine Ratio 16.2 (10-20) Glucose 74 (70-99) mg/dl Calcium 8.4 L (8.5-10.1) mg/dl Medications Administered Current Inpatient Medications Acetaminophen (Acetaminophen 325 Mg Tab) 650 mg PEG Q4H PRN PRN Reason: Pain or Fever Stop: 08/17/20 03:14 Albuterol (Albuterol 0.083% Nebu Soln 3 Ml Vial) 2.5 mg INH Q4R PRN PRN Reason: Shortness Of Breath Stop: 08/17/20 01:50 Last Admin: 07/19/20 07:07 Dose: 2.5 mg Documented by: Albuterol (Albuterol Hfa 8 Gm Inhaler) 2 puffs INH QIDR ANA ROSA Stop: 08/17/20 06:59 Last Admin: 07/19/20 08:18 Dose: 2 puffs Documented by: Calamine/Phenol (Menthol-Zinc Oxide 360 Appln/120 Gm Tube) 1 appln EXT BID PRN PRN Reason: Rash Stop: 08/17/20 01:50 Collagenase (Collagenase Oint 30 Gm Tube) 1 appln TOP DAILY ANA ROSA Stop: 08/17/20 08:59 Last Admin: 07/19/20 08:16 Dose: 1 appln Documented by: Enoxaparin Sodium (Enoxaparin Inj 40 Mg/0.4 Ml Syr) 40 mg SQ Q24H ANA ROSA Stop: 08/17/20 03:59 Last Admin: 07/19/20 03:56 Dose: 40 mg Documented by: Enteral Nutritional Formula (Peptamen 1.5 Sim 1,000 Ml Bag) 1,000 ml GT UD ANA ROSA; Protocol Stop: 08/17/20 10:14 Last Admin: 07/18/20 12:57 Dose: 1,000 ml Documented by: Famotidine (Famotidine 40 Mg Tablet) 40 mg GT DAILY ANA ROSA Stop: 08/17/20 08:59 Last Admin: 07/19/20 08:18 Dose: 40 mg Documented by: Fluoxetine HCl (Fluoxetine Hcl 20 Mg/5 Ml Udp) 40 mg GT QAM ANA ROSA Stop: 08/18/20 08:59 Last Admin: 07/19/20 08:17 Dose: 40 mg Documented by: Fluoxetine HCl (Fluoxetine Hcl 20 Mg/5 Ml Udp) 20 mg PO QPM ANA ROSA Stop: 08/17/20 20:59 Last Admin: 07/18/20 21:55 Dose: 20 mg Documented by: Fluticasone/Vilanterol (Fluticasone/Vilanterol 100/25mcg 14 Puffs/Inhaler) 1 puffs INH DAILY ANA ROSA Stop: 08/17/20 08:59 Last Admin: 07/19/20 08:18 Dose: 1 puffs Documented by: Guaifenesin (Guaifenesin Sugar Free 200 Mg/10 Ml Udc) 200 mg PEG BID ANA ROSA Stop: 08/17/20 20:59 Last Admin: 07/19/20 08:16 Dose: 200 mg Documented by: Heparin Sodium (Porcine) (Heparin 100 Unit/Ml 5ml Flush) 5 ml FLUSH PRN PRN PRN Reason: Flush Stop: 08/17/20 23:53 Vancomycin HCl 750 mg/ Sodium (Chloride) 265 mls @ 200 mls/hr IV Q12H [facility] Stop: 07/25/20 15:59 Last Infusion: 07/19/20 05:30 Dose: Infused Documented by: Piperacillin Sod/Tazobactam (Sod 4.5 gm/ Dextrose) 120 mls @ 28.75 mls/hr IV Q8H [facility]; Protocol Stop: 07/25/20 09:59 Last Admin: 07/19/20 08:23 Dose: 28.8 mls/hr Documented by: Potassium Chloride (K Gavin / Wtr) 10 meq in 100 mls @ 100 mls/hr IV Q1H [facility] Stop: 07/19/20 09:47 Levothyroxine Sodium (Levothyroxine Sodium 100 Mcg Tablet) 100 mcg GT DAILYBB [facility] Stop: 08/17/20 06:29 Last Admin: 07/19/20 05:28 Dose: 100 mcg Documented by: Lorazepam (Lorazepam 1 Mg Tab) 1 mg PO QID PRN PRN Reason: Anxiety Stop: 08/17/20 02:23 Last Admin: 07/19/20 08:23 Dose: 1 mg Documented by: Miscellaneous (*Gentamicin 0.1% Oint*Order Awaiting Action) 1 ea N/A QS [facility] Stop: 08/17/20 07:59 Last Admin: 07/19/20 07:12 Dose: Not Given Documented by: Miscellaneous (Remove Nicoderm Patch) 1 ea N/A DAILY@0859 [facility] Stop: 08/17/20 08:58 Last Admin: 07/19/20 08:16 Dose: 1 ea Documented by: Miscellaneous Information (Vancomycin Consult Active) 1 ea N/A UD PRN PRN Reason: Consult Stop: 08/17/20 02:31 Miscellaneous Information (Piperacill/Tazobac Consult Active) 1 ea N/A UD PRN PRN Reason: Consult Stop: 08/17/20 02:32 Nicotine (Nicotine 21 Mg/24 Hr Tdsy) 21 mg TD DAILY [facility] Stop: 08/17/20 08:59 Last Admin: 07/19/20 08:17 Dose: 21 mg Documented by: Olanzapine (Olanzapine Zydis 5 Mg Orally Dis. Tab) 5 mg PO HS [facility] Stop: 08/17/20 20:59 Last Admin: 07/18/20 20:31 Dose: 5 mg Documented by: Ondansetron HCl (Ondansetron Inj 2 Mg/Ml 2 Ml Vial) 4 mg IV Q6H PRN PRN Reason: Nausea Stop: 08/17/20 01:50 Oxycodone HCl (Oxycodone Hcl Soln 5 Mg/5 Ml Udc) 15 mg PO Q4H PRN PRN Reason: Breakthrough Pain Stop: 08/01/20 03:31 Last Admin: 07/19/20 06:39 Dose: 15 mg Documented by: Polyethylene Glycol (Polyethylene (Miralax) 17 Gm Pack) 17 gm PEG DAILY PRN PRN Reason: Constipation Stop: 08/17/20 01:50 Prednisone (Prednisone 10 Mg Tablet) 10 mg GT DAILY ANA ROSA Stop: 08/17/20 08:59 Last Admin: 07/19/20 08:18 Dose: 10 mg Documented by: Pregabalin (Pregabalin 50 Mg Cap) 50 mg PO HS ANA ROSA Stop: 08/17/20 20:59 Last Admin: 07/18/20 20:31 Dose: 50 mg Documented by: Pregabalin (Pregabalin 25 Mg Cap) 25 mg PO BID@0700,1300 ANA ROSA Stop: 08/17/20 06:59 Last Admin: 07/19/20 08:16 Dose: 25 mg Documented by: Sodium Chloride (Sodium Chlor 7% 4 Ml Neb) 4 ml NEB BIDR ANA ROSA Stop: 08/17/20 18:59 Last Admin: 07/19/20 07:07 Dose: 4 ml Documented by: Sodium Chloride (Sodium Chlor 7% 4 Ml Neb) 4 ml NEB BIDR ANA ROSA Stop: 08/18/20 06:59 Last Admin: 07/19/20 07:08 Dose: Not Given Documented by: Sterile Water (Tube Feeding Water Flush) 125 ml GT Q6 ANA ROSA Stop: 08/17/20 13:29 Last Admin: 07/19/20 05:28 Dose: 125 ml Documented by: Trazodone HCl (Trazodone Hcl 100 Mg Tab) 200 mg PO QPM ANA ROSA Stop: 08/17/20 20:59 Last Admin: 07/18/20 20:31 Dose: 200 mg Documented by: (1) COPD (chronic obstructive pulmonary disease) COPD type: unspecified COPD Qualified Code(s): J44.9 - Chronic obstructive pulmonary disease, unspecified
[2020-07-19] MEDS: POTASSIUM CHLORIDE / WTR 10 MEQ/100 ML PLCT IV SCH ×2 (09:29→10:42)
--- NOTE | 2020-07-19 10:33 | Pulmonology Progress Note ---
Date of Service July 19, 2020 Assessment & Plan (1) Pneumonia: (2) Tracheostomy in place: Impression: 59-year-old female with extensive surgery for orofacial cancer currently on Keytruda and prednisone now with pneumonia, culture showing 2 different species of Pseudomonas, with the initial 1 being pansensitive Recommendations: 1. Pneumonia: Secondary to Pseudomonas. Await sensitivities of the second organism. We will discontinue vancomycin at this point time. Continue Zosyn. Can transition to oral Levofloxacin 750 mg daily for total of 14 days at discharge.If Pseudomonas colonization continues to be an issue, consideration for a trial of nebulized tobramycin 14 days on 14 days off may be appropriate. 2. Mucus plugging: Continue aggressive pulmonary toilet with Mucinex. She appears to be coughing and clearing secretions appropriately currently. 3. Hypoxemia: Secondary to #1 and #2. Continue supplemental oxygen titrated to keep saturations at or above 90%.She may need supplemental oxygen at discharge. 4. Tracheostomy:Per ENT 5. Oropharyngeal cancer: Would hold chemotherapy pending resolution of the patient's infectious issues. Patient appears significantly improved at this point time and is asking about discharge. From a pulmonary perspective if the patient can manage her secretions and her shortness of breath is better, she may be discharged on oral antibiotics as noted above and follow-up with her team at [facility] in the [facility]. Pulmonary will sign off at this point time. Feel free to contact us if we can be of additional assistance Admission and Anticipated Discharge Date Admission Date: July 17, 2020 Subjective Patient seen and examined. She feels clinically better. Her shortness of breath is better. She continues to have significant mucopurulent tracheal secretions. No fevers chills or night sweats. Review of Systems Review of Systems: All systems reviewed & are unremarkable except as noted in HPI & below Physical Exam Constitutional: + frail appearing Respiratory: normal respiratory effort Cardiovascular: RRR, no murmur, no edema Gastrointestinal (Abdomen): normal bowel sounds, soft, nontender, no hepatosplenomegaly Musculoskeletal: Extremities: extremities normal to inspection Skin: no rashes, warm and dry Lymphatic: no cervical lymphadenopathy Results & Data Results & Data ([facility]) Vital Signs (Past 12 Hours) Vital Signs Temp Pulse Pulse Resp BP Pulse Ox 07/19/20 08:00 72 07/19/20 07:59 36.8 C 78 18 96/51 L 98 07/19/20 07:08 79 22 99 07/19/20 03:31 37.3 C 78 18 98/62 L 90 07/18/20 23:50 36.8 C 77 18 100/62 90 Laboratory Results 07/19/20 06:44 07/19/20 06:44 Microbiology 07/18/20 04:50 Sputum,Trach Gram Stain - Final 07/18/20 04:50 Sputum,Trach Sputum Culture - Preliminary Gram negative bacilli Gram negative bacilli#2 07/17/20 17:17 Sputum,Trach Gram Stain - Final 07/17/20 17:17 Sputum,Trach Sputum Culture - Preliminary Pseudomonas aeruginosa Pseudomonas aeruginosa#2 07/17/20 17:17 Blood Aerobic Blood Culture - Preliminary No growth in Aerobic bottle after 24 hours. 07/17/20 17:17 Blood Anaerobic Blood Culture - Final 07/17/20 17:02 Blood Aerobic Blood Culture - Preliminary No growth in Aerobic bottle after 24 hours. 07/17/20 17:02 Blood Anaerobic Blood Culture - Preliminary No growth in Anaerobic bottle after 24 hours. Diagnostic Findings No new imaging PG Care Time/CCT Total # of Minutes Spent Total Time Spent with Patient: Total time spent is greater than 50% in coordination of care (as documented) at patient's floor/unit and/or counseling patient: Coding Level of Care Code 96800 Subseq Hosp Care Lvl 3 Diagnoses Pneumonia J18.[address] Z93.0 Time Spent (min) 35
[2020-07-19] MEDS: PEPTAMEN 1.5 CAL 1,000 ML BAG GT SCH (17:42)
[2020-07-19] MEDS: OLANZapine ZYDIS 5 MG ORALLY DIS. TAB PO SCH (20:40)
[2020-07-19] MEDS: traZODone HCL 100 MG TAB PO SCH (20:41)
[2020-07-19] MEDS: PREGABALIN 50 MG CAP PO SCH (20:49)
[2020-07-20] MEDS: guaiFENesin SUGAR FREE 200 MG/10 ML UDC PEG SCH ×3 (00:09→13:00)
[2020-07-20] MEDS: TUBE FEEDING WATER FLUSH GT SCH ×3 (00:10→13:23)
[2020-07-20] MEDS: ENOXAPARIN INJ 40 MG/0.4 ML SYR SQ SCH (02:12)
[2020-07-20] MEDS: PIPERACILLIN/TAZOBACTAM 4.5 GM in DEXTROSE 5% 100 ML IV SCH ×2 (02:12→10:01)
[2020-07-20] MEDS ORDERED: VANCOMYCIN TROUGH ONE (03:30)
[2020-07-20] MEDS: LEVOTHYROXINE SODIUM 100 MCG TABLET GT SCH (06:03)
[2020-07-20] MEDS: ALBUTEROL 0.083% NEBU SOLN 3 ML VIAL INH PRN (07:24)
[2020-07-20] MEDS: ALBUTEROL HFA 8 GM INHALER INH SCH (07:26)
[2020-07-20] MEDS: SODIUM CHLOR 7% 4 ML NEB NEB SCH (07:26)
[2020-07-20] MEDS ORDERED: POTASSIUM CHLORIDE 20 MEQ/15 ML UDC PEG STA (08:23)
[2020-07-20] MEDS: PREGABALIN 25 MG CAP PO SCH ×2 (08:25→13:00)
[2020-07-20] MEDS: FAMOTIDINE 40 MG TABLET GT SCH (08:26)
[2020-07-20] MEDS: predniSONE 10 MG TABLET GT SCH (08:26)
[2020-07-20] MEDS: NICOTINE 21 MG/24 HR TDSY TD SCH (08:27)
[2020-07-20] MEDS: COLLAGENASE OINT 30 GM TUBE TOP SCH (08:27)
[2020-07-20] MEDS: FLUTICASONE/VILANTEROL 100/25MCG 14 PUFFS/INHALER INH SCH (08:27)
--- NOTE | 2020-07-20 08:46 | Hospitalist Progress Note ---
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 Increased sputum production and SOB x 5 days, in setting of prednisone use for facial swelling Leukocytosis of 17.1, lactate WNL, procalcitonin negative Chest CTA showed no evidence of PE. Moderate right lower lobe consolidation. Mild left lower lobe airspace opacity. The findings favor pneumonia or aspiration pneumonitis. Secretions and bronchial wall thickening, most pronounced within RLL Currently on empirical Zosyn and Vanco Sputum from trach grow gram-negative bacilli -Pseudomonas 1 and 2 We will follow sensitivity and adjust antibiotic accordingly Pulmonary on board - recommend to switch to Levaquin 750 mg daily for 14 days on the discharge Also ordered humidifier on discharge Chest PT and hypertonic saline neb Continue oxygen supplement (2) Oropharyngeal carcinoma: Diagnosed in 2018 and in remission until February 2020 Last Keytruda dose 07/11/[address] Tyler of [facility] heme onc, also receiving care at [facility] Continue pain control (3) Tracheostomy in place: asked if they can change the trach from the size 5 to a 4 during the hospital course Patient had an appointment with head and neck surgery but was canceled, and scheduled on 08/01 Dr. Quincy Goodman Contacted Dr. Quincy Goodman to see if he can see the patient at an early date to see exchange the trach from a size [address] Goodman said they will contact the patient to try to get her an early appointment to get the trach evaluate Continue monitor closely (4) Hyponatremia: Sodium of 122, baseline ~ mid-130s Na 133 today continue monitor BMP (5) Bilateral lower extremity edema: L>R swelling lower extremities, worsening since 07/11/20 BLE venous dopplers showed no evidence of DVT (6) COPD (chronic obstructive pulmonary disease): Continue home inhalers, supplemental O2 as needed (7) S/P percutaneous endoscopic gastrostomy (PEG) tube placement: Ensure Plus oral liquid through PEG tube Continue tube feeding NPO (8) Depression: (9) Anxiety: Continue Prozac, Ativan, olanzapine HS (10) Tobacco use disorder: Counseling on smoking cessation On Nicotine patch (11) Wound, open, neck: Open wound under trach opening Following with wound care - gentamycin ointment mixed with Santyl and applied daily Wound care nurse consulted DVT Ppx: SQ lovenox Code status: FULL PCP: Dr. Govea Dispo: Plan to DC home w/ close follow up . Admission and Anticipated Discharge Date Admission Date: July 17, 2020 Subjective Patient was seen and examined for follow-up of pneumonia Sitting up in bed in no acute distress, feeling better Continues to have sputum production from the trach Patient had an appointment with ENT in [place], canceled the appointment. Patient does not use oxygen at home Denies any chest pain, palpitation, dizziness, and fever Seen by pulmonary Currently at bedside, discussed humidifier, and antibiotic on discharge and appropriate follow-ups. Patient and her in agreement and understanding. Review of Systems Review of Systems: All systems reviewed & are unremarkable except as noted in HPI & below Constitutional: no fever and no chills Respiratory: + cough and + dyspnea (improved) Cardiovascular: no chest pain and no palpitations Gastrointestinal: no abdominal pain, no nausea and no vomiting Physical Exam Physical Exam: General- No acute distress Head- atraumatic Eyes- PERRL, EOMI, ENT- +trach with productive phlegm Neck- supple, no JVD Lungs- + mild rhonchi Heart- regular rhythm; no murmur Abdomen- normal bowel sounds, soft, nontender +peg tube Extremities- no calf tenderness, moves extremities Neuro- alert, oriented x 3; PERRL, EOMI; no facial palsy; no dysarthria Skin- warm & dry Results & Data Results & Data ([facility]) Vital Signs (Past 12 Hours) Vital Signs Temp Pulse Pulse Resp BP Pulse Ox 07/20/20 07:28 77 18 97 07/20/20 07:16 36.7 C 97 H 12 131/83 91 07/20/20 03:03 36.9 C 78 20 140/82 94 07/20/20 00:10 104/60 07/19/20 22:21 90/60 L 07/19/20 22:20 76 07/19/20 22:12 36.7 C 71 20 79/47 L 96 (1) COPD (chronic obstructive pulmonary disease) COPD type: unspecified COPD Qualified Code(s): J44.9 - Chronic obstructive pulmonary disease, unspecified
[2020-07-20] MEDS ORDERED: FEXOFENADINE HCL 180 MG TAB PO SCH (09:00)
[2020-07-20] MEDS: oxyCODONE HCL SOLN 5 MG/5 ML UDC PO PRN ×2 (09:11→13:00)
[2020-07-20] MEDS ORDERED: ALBUTEROL 0.083% NEBU SOLN 3 ML VIAL INH SCH (11:00)
[2020-07-20] MEDS: LORazepam 1 MG TAB PO PRN (13:23)
--- NOTE | 2020-07-20 14:59 | Discharge Summary ---
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 Patient initially diagnosed with oropharyngeal cancer in 2017 and was then in remission for a time until cancer recurred in Feb 2020. Underwent laryngectomy total with radial neck dissection by Dr. Goodman at [facility] in April 2020. Tracheostomy placed at that time as well. Has received 2 Keytruda treatments with the last 1 on 07/11/2020. Since then, patient has had increased sputum production from trach that is thick and yellow with an odor. has been usually suctions twice daily but is up to Q3H as of this morning. also notices patient is weaker than usual, able to get up and use restroom but not do anything around the house. Also notices rattling sound at site of trach. Has been on prednisone for facial swelling. Dose decreased to 10mg daily as of today. Patient endorsing pain in throat, shortness of breath and fatigue. Denies any fever, chills, headache, lightheadedness, chest pain, nausea, vomiting, abdominal pain, dysuria, diarrhea constipation. Receives nutrition through PEG tube. Does not swallow anything by mouth. Does swish around water but then spits out. Receiving cancer care from medical oncology Dr. Tyler in [place] as well as a second opinion at the [facility]. Due for another appointment at [facility] on Jul 25. Admission Exam Per Admitting Provider General Appearance: vitals as above, thin, ill appearing, sitting up in bed Head: normocephalic, atraumatic Eyes: normal inspection, PERRL, conjunctivae normal, anicteric sclerae ENT: external ear and nose normal, oropharynx normal Neck: Trach in place draining yellow purulent sputum, foul-smelling Respiratory: Increased respiratory effort, diffuse coarse lung sounds with rhonchi, poor air movement. No accessory muscle use Cardiovascular: regular rate, rhythm, no murmur, normal peripheral pulses, 2+LLE edema, trace RLE edema Chest: normal inspection of chest Abdomen/GI: normal bowel sounds, soft, nontender, no hepatosplenomegaly. + PEG tube Extremities/Musculoskeletal: no cyanosis or clubbing, extremities motor strength 5/5 Neurologic: PERRL, EOMI, accommodation nl, no face palsy, no dysarthria, CN's II-XI intact bilaterally and moves all extremities Psychiatric: A+Ox3, euthymic affect Skin: no rashes, normal color, warm/dry. + wound underlying trach site with bandage in place Principal Diagnosis Pseudomonal pneumonia Discharge Exam General- No acute distress Head- atraumatic Eyes- PERRL, EOMI, ENT- +trach with productive phlegm Neck- supple, no JVD Lungs- + mild rhonchi Heart- regular rhythm; no murmur Abdomen- normal bowel sounds, soft, nontender +peg tube Extremities- no calf tenderness, moves extremities Neuro- alert, oriented x 3; PERRL, EOMI; no facial palsy; no dysarthria Skin- warm & dry Discharge Data Allergies Allergy/AdvReac Type Severity Reaction Status Date / Time No Known Allergies Allergy Mild NONE Verified 07/17/20 17:13 Consultations 07/17/20 19:57 ED Decision to Admit Stat 07/18/20 01:51 Consult Pulmonology Routine Ordered Studies 07/17/20 16:10 CT angio chest PE protocol Stat IMPRESSION: 1. No pulmonary emboli identified. 2. Moderate right lower lobe consolidation. Mild left lower lobe airspace opacity. The findings favor pneumonia or aspiration pneumonitis. Secretions and bronchial wall thickening, most pronounced within the right lower lobe. 3. Mildly enlarged right hilar lymph nodes. These are likely reactive. A follow up chest CT in 3 months to ensure resolution is recommended. 4. Mild emphysema. 07/17/20 16:12 US venous doppler LE Urgent IMPRESSION: No DVT within the right or left lower extremity. Hospital Course (1) Pneumonia: This is a 59-year-old female with PMH of recurrent oropharyngeal cancer on Keytruda, PEG tube in place, chronic pain syndrome, depression, anxiety, COPD and other medical problems as below who presents from home with productive sputum from trach for the past 5 days and was found to have pneumonia. Increased sputum production and SOB x 5 days, in setting of prednisone use for facial swelling Leukocytosis of 17.1, lactate WNL, procalcitonin negative Chest CTA showed no evidence of PE. Moderate right lower lobe consolidation. Mild left lower lobe airspace opacity. The findings favor pneumonia or aspiration pneumonitis. Secretions and bronchial wall thickening, most pronounced within RLL Currently on empirical Zosyn and Vanco Sputum from trach grow gram-negative bacilli -Pseudomonas 1 and 2 We will follow sensitivity and adjust antibiotic accordingly Pulmonary consulted - recommend to switch to Levaquin 750 mg daily for 14 days on the discharge Also ordered humidifier on discharge Pt may benefit from pulmonary follow up Chest PT and hypertonic saline neb Continue oxygen supplement (2) Oropharyngeal carcinoma: Diagnosed in 2018 and in remission until February 2020 Last Keytruda dose 07/11/[address] Tyler of [facility] heme onc, also receiving care at [facility] Continue pain control (3) Tracheostomy in place: asked if they can change the trach from the size 5 to a 4 during the hospital course Patient had an appointment with head and neck surgery but was canceled, and scheduled on 08/01 Dr. Quincy Goodman Contacted Dr. Quincy Goodman to see if he can see the patient at an early date to see exchange the trach from a size [address] Goodman said they will contact the patient to try to get her an early appointment to get the trach evaluate Continue monitor closely (4) Hyponatremia: Sodium of 122, baseline ~ mid-130s Na 133 today continue monitor BMP (5) Bilateral lower extremity edema: L>R swelling lower extremities, worsening since 07/11/20 BLE venous dopplers showed no evidence of DVT (6) COPD (chronic obstructive pulmonary disease): Continue home inhalers, supplemental O2 as needed (7) S/P percutaneous endoscopic gastrostomy (PEG) tube placement: Ensure Plus oral liquid through PEG tube Continue tube feeding NPO (8) Depression: (9) Anxiety: Continue Prozac, Ativan, olanzapine HS (10) Tobacco use disorder: Counseling on smoking cessation On Nicotine patch (11) Wound, open, neck: Open wound under trach opening Following with wound care - gentamycin ointment mixed with Santyl and applied daily Wound care nurse consulted Code status: FULL PCP: Dr. Govea Dispo: Plan to DC home w/ close follow up . Total Time Total Time Spent Total Time Spent (In Minutes): 40 Total Time Includes: Examination of the Patient, Discharge Planning, Medication Reconciliation and Communication With Other Providers Discharge Plan Discharge Items Patient Disposition: Home - Self-Care Reason For Visit: SEPSIS, TRACHEITIS Discharge Diagnosis: Pseudomonal pneumonia Activity: Per Instructions section Non-emergency contact: Primary Care Provider and Specialist Call non-emergency contact if: you have any medication questions and your symptoms worsen Follow-up/Referrals: Lg Govea DO [Primary Care Provider] - (Date & Time 07/24/2020 11:20 AM Provider Lg Govea DO Department [facility] ) Diet: Other - See Diet Comment Diet Comment: Per PEG tube Addtl Attending Provider Instructions: For pneumonia, you will need to finish antibiotic, levofloxacin 750 milligrams daily for 14 days. Take it per PEG tube. Also use guaifenesin as prescribed, to help break up mucus. Humidifier was also prescribed for you, to help loosen up secretions/mucus and clear them. Follow-up appointment with your primary care doctor was scheduled for you for July 24. You should also follow-up with a shearing shed worker. Referral to pulmonology/lung doctor will be provided for you. Pending Studies at Discharge: Yes Studies:: final trach culture Stand-Alone Forms: My [facility], Smoking Cessation Medications and DC Order Prescriptions: New guaifenesin 100 mg/5 mL Liquid 200 mg PEG Q6 Qty: 473 RF: 0 levofloxacin 750 mg tablet 750 mg PO DAILY 14 Days Qty: 14 RF: 0 Continued Santyl 250 unit/gram ointment 1 applic topical DAILY Qty: 30 RF: 1 gentamicin 0.1 % ointment 1 applic topical DAILY 14 Days Qty: 30 RF: 1 fluoxetine 20 mg/5 mL (4 mg/mL) solution 40 mg feeding tube QAM RF: 0 fluoxetine 20 mg/5 mL (4 mg/mL) solution 20 mg feeding tube QPM RF: 0 albuterol sulfate 2.5 mg /3 mL (0.083 %) solution for nebulization 2.5 mg inhalation Q4H PRN (Reason: Shortness Of Breath) RF: 0 promethazine 6.25 mg/5 mL syrup 6.25 mg feeding tube QID PRN (Reason: cough) RF: 0 ondansetron 8 mg tablet,disintegrating 8 mg PO Q8H PRN (Reason: Nausea) RF: 0 trazodone 100 mg tablet 200 mg feeding tube QPM RF: 0 lorazepam 1 mg Tablet 1 mg feeding tube Q6H PRN (Reason: Anxiety) RF: 0 albuterol sulfate 90 mcg/actuation HFA aerosol inhaler 2 puff INHALATION QID RF: 0 olanzapine 5 mg tablet,disintegrating 5 mg feeding tube HS RF: 0 pregabalin 25 mg capsule 25 mg feeding tube BID RF: 0 Breo Ellipta 100-25 mcg/dose blister with device 1 ea INHALATION DAILY RF: 0 oxycodone 20 mg/mL concentrate 15 mg feeding tube Q3H PRN (Reason: Breakthrough Pain) RF: 0 prednisone 5 mg tablet 10 mg feeding tube DAILY RF: 0 famotidine 40 mg tablet 40 mg feeding tube DAILY RF: 0 levothyroxine 100 mcg tablet 100 mcg PO DAILY RF: 0 nicotine 21 mg/24 hr patch 24 hour 1 patch transdermal DAILY RF: 0 pregabalin 25 mg capsule 50 mg feeding tube HS RF: 0 Narcan 4 mg/actuation spray,non-aerosol INTRANASAL UD RF: 0 fexofenadine 180 mg Tablet 180 mg feeding tube DAILY RF: 0 Calmoseptine 0.44-20.6 % Ointment 1 applic TOPICAL BID PRN (Reason: Rash) RF: 0 Discharge Orders: Discharge Order (Routine); Ordered 07/20/20 Ordered By: Nikita Conley Admission Data Admit Date/Time: 07/17/20 21:12 Attending Provider: Nikita Conley Admit Provider: Vanessa Ramírez Primary Care Provider: Lg Govea Other Providers: Vanessa Ramírez ; Nasim Velasquez ; Geri Ferreira Other Interventions: Discharge Summary Assessment (RN) Last Done: 07/20/20 13:26
== END 2020-07-20 13:54 | disposition home or self-care (01) | DRG 178 ==
LOC: ED 15:34 → 2S 21:12 → SUATTDRO 21:12 → 2S 07-18 00:50